=== PATIENT | female | born 1985 | race Caucasian/White ===

== ENCOUNTER → 2019-05-05 | Outpatient (CLI) | payer MEDICARE, MEDICAID ==
[~2019-05-05] MED LIST: AMIT50TA3 PO; ASPI-586 PO; ATEN100T PO; ATEN50TA PO; BACL20TA PO; BSP10T; BSP5T PO; BUSP10TA95 PO; CETI10TA20 PO; CITA40TA19 PO; CLON-378 PO; CLON0.1T PO; CLON0.5T13 PO; CRS350T PO; CTLP20T PO; DOXY100T2 PO; DVL500TEC PO; FURO80TA3 PO; HYDR-229 PO; HYDR-3816 PO; HYDR50TA76 PO; HYDROCODONE; IBP800T PO; IMITREX; LANS30CA PO; LCT30U PO; LISI1TAB10 PO; MILN100T PO; MILN50TA6 PO; NITR-65 PO; OMEP40CA36 PO; ONDA-41 PO; ONDA-43 PO; ORPH100T PO; OXYC10TA7 PO; OXYC15TA79 PO; OXYC20TA63 PO; POTA10TA10 PO; PRAZ2CAP2 PO; PRM25T PO; PROM25SU10 PR; QUET50TA55 PO; RANI150C11 PO; RANI150T11 PO; RT-ALBUINH INH; SULF1TAB7 PO; TRM50T PO
== END ==
LOC: WOUNDCARE 10:16
PROVIDERS: ATTEND Nurse Practitioner
DX: L97.212 Non-pressure chronic ulcer of right calf with fat layer exposed (principal); N18.3 Chronic kidney disease, stage 3 (moderate); G43.909 Migraine, unspecified, not intractable, without status migrainosus; F43.10 Post-traumatic stress disorder, unspecified
CPT/HCPCS: 11042

== ENCOUNTER 2019-05-06 15:45 | Outpatient (CLI) | payer MEDICARE, MEDICAID ==
[~2019-05-06] VITALS: Ht 167.7 cm; Wt 114.1 kg
[~2019-05-06 15:45] MED LIST changes: -ASPI-586 PO; -ATEN100T PO; -BACL20TA PO; -BUSP10TA95 PO; -CETI10TA20 PO; -CLON0.1T PO; -CLON0.5T13 PO; -FURO80TA3 PO; -HYDR-3816 PO; -HYDR50TA76 PO; -OMEP40CA36 PO; -OXYC10TA7 PO; -POTA10TA10 PO; -PRAZ2CAP2 PO; -QUET50TA55 PO; -RANI150T11 PO; -RT-ALBUINH INH
[2019-05-06] MEDS ORDERED: OMEP40CA36 PO (16:22)
[2019-05-06] MEDS ORDERED: RANI150T11 PO (16:22)
[2019-05-06] MEDS ORDERED: AMIT50TA3 PO (16:22)
[2019-05-06] MEDS ORDERED: OXYC10TA7 PO (16:22)
[2019-05-06] MEDS ORDERED: ATEN100T PO (16:22)
[2019-05-06] MEDS ORDERED: BUSP10TA95 PO (16:22)
[2019-05-06] MEDS ORDERED: POTA10TA10 PO (16:22)
[2019-05-06] MEDS ORDERED: QUET50TA55 PO (16:22)
[2019-05-06] MEDS ORDERED: FURO80TA3 PO (16:23)
[2019-05-06] MEDS ORDERED: PRAZ2CAP2 PO (16:23)
[2019-05-06] MEDS ORDERED: RT-ALBUINH INH (16:23)
[2019-05-06] MEDS ORDERED: ASPI-586 PO (16:23)
[2019-05-06] MEDS ORDERED: CLON0.5T13 PO (16:23)
[2019-05-06] MEDS ORDERED: CLON0.1T PO (16:23)
[2019-05-06] MEDS ORDERED: BACL20TA PO (16:23)
[2019-05-06] MEDS ORDERED: CETI10TA20 PO (16:23)
[2019-05-06] MEDS ORDERED: HYDR50TA76 PO (16:23)
[2019-05-07] MEDS ORDERED: HYDR-3816 PO (09:11)
--- NOTE | 2019-05-07 13:56 | OPERATIVE REPORT ---
DATE OF SERVICE: 05/06/2019 ATTENDING SPICE MILLER: ZACH Ornelas PREOPERATIVE DIAGNOSES: Open wound with palpable nodules, right calf with adjacent nodules in between. After full exploration of the lower extremity, she had multiple larger lesions of the thigh as well as throughout the rest of her body. This may indicate some form of systemic disease. POSTOPERATIVE DIAGNOSES: Open wound with palpable nodules, right calf with adjacent nodules in between. After full exploration of the lower extremity, she had multiple larger lesions of the thigh as well as throughout the rest of her body. This may indicate some form of systemic disease. PROCEDURE: Excisional biopsy of right thigh lesion 4 cm in size, excisional biopsy of right medial calf lesion x2, both 2 cm in size. SURGEON: Matt El MD. COSMETIC ACCOUNT COORDINATOR: Kevin Bourgeois APRN. ANESTHESIA: General laryngeal mask airway. ESTIMATED BLOOD LOSS: Minimal. FINDINGS: Open wound with palpable nodules, right calf with adjacent nodules in between. After full exploration of the lower extremity, she had multiple larger lesions of the thigh as well as throughout the rest of her body. This may indicate some form of systemic disease. DISPOSITION: The patient tolerated the procedure well. INDICATIONS: The patient is a 34-year-old female with an extensive past medical history. She was referred over to us for two wounds of the right lateral calf, which she initially noticed 02/2019, which were small and developed an opening in the center. The lesion persisted and then she developed a second open wound few centimeters away from this. In between these lesions, she has two non-subcutaneous palpable nodules as well. This appeared to be some form of infectious process; however, after full examination of the body in the right lower extremity. She had multiple large cystic lesions throughout indicating some form of systemic process, which may include infection versus an autoimmune inflammatory reaction. She has a history of hypertension, peripheral vascular disease, stage III renal failure, lupus as well as CHF and as well as a history of myocardial infarction and cervical cancer. DESCRIPTION OF PROCEDURE: The patient was brought to the operating room, laid supine on the table. After adequate IV pain and sedative medications and general laryngeal mask airway intubation, the right lower extremity was prepped and draped in standard surgical fashion. A 0.5% Marcaine with epinephrine was used to anesthetize the overlying skin to the two lesions of the right medial calf. However, there was a very large nodule among many others identified of the right anterior thigh, which was significantly large approximately 4 cm in size. We first proceeded with an excisional biopsy of the lesion of the right thigh. A transverse skin incision was made using a 15 blade and a cystic type lesion was identified in the subcutaneous fat and this was excised using electrocautery as well as blunt dissection. There was purulence within the cyst capsule. Good hemostasis was observed and the subcutaneous tissue was then reapproximated using 3-0 Vicryl interrupted sutures and the skin was closed using 4-0 nylon interrupted sutures. We then proceeded with excisional biopsies of the two open lesions of the right medial calf using a 15 blade. Good hemostasis was observed and the skin edges were then reapproximated using 4-0 nylon interrupted sutures. Wounds were then cleaned and covered with gauze followed by Kerlix, followed by Coban. The patient tolerated the procedure well. We will await the biopsy results; however, we feel again that this is some form of systemic infection and the contents of the cyst were sent for culture and sensitivity as well as fungal. We will also empirically start her on Diflucan for a suspected lower extremity fungal infection. Job ID: [id number] DocumentID: [id number] Dictated Date: 05/07/2019 10:29:46 Medical Secretary Date: 05/07/2019 13:55:38 Dictated By: MATT EL MD
== END 2019-05-06 16:23 | disposition home or self-care (01) ==
LOC: PREOP 15:45
PROVIDERS: ATTEND Surgery
DX: Z01.818 Encounter for other preprocedural examination (principal)

== ENCOUNTER 2019-06-28 16:55 | Emergency (ER) | payer MEDICARE, MEDICAID ==
[~2019-06-28] VITALS: Ht 167.7 cm; Wt 103.0 kg
[~2019-06-28 16:55] MED LIST changes: +ASPI-586 PO; +ATEN100T PO; +BACL20TA PO; +BUSP10TA95 PO; +CETI10TA20 PO; +CLON0.1T PO; +CLON0.5T13 PO; +FURO80TA3 PO; +HYDR-3816 PO; +HYDR50TA76 PO; +OMEP40CA36 PO; +OXYC10TA7 PO; +POTA10TA10 PO; +PRAZ2CAP2 PO; +QUET50TA55 PO; +RANI150T11 PO; +RT-ALBUINH INH
--- NOTE | 2019-06-28 17:08 | ED Upper Extremity ---
General Chief Complaint: Upper Extremity Stated Complaint: FALL/R WRIST INJ/DENTAL INJ Source: patient Exam Limitations: no limitations History of Present Illness Date Seen by Provider: Jun 28, 2019 Time Seen by Provider: 17:06 Initial Comments To ER with a fall and subsequent right wrist injury and a broken tooth. This occurred last night while cleaning her mother's house. Did not hit her head other than knocking a tooth out on the way down. Complains of pain to the right wrist with statement of "I already have a scaphoid injury". She states that she has taken nothing for pain however K tracks shows that she had a 21 day supply of OxyContin filled on June 18, 10 days ago. However she states "oh I quit taking that on the ". Onset: just prior to arrival Severity: moderate Pain/Injury Location: right wrist Method of Injury: fell Modifying Factors: Worse With Movement Allergies and Home Medications Allergies Coded Allergies: ketorolac (Unverified Allergy, Mild, 07/13/09) naproxen (Unverified Allergy, Mild, 07/13/09) amoxicillin (Verified Allergy, Unknown, 05/06/19) ciprofloxacin (Unverified Allergy, Unknown, 08/16/14) hydrocodone (Verified Allergy, Unknown, Itching, 05/07/19) N/V. morphine (Unverified Allergy, Unknown, 08/16/14) pregabalin (Verified Allergy, Unknown, Anaphylaxis, 05/06/19) tramadol (Unverified Allergy, Unknown, 08/16/14) Uncoded Allergies: BEES (Allergy, Unknown, 08/16/14) Home Medications Albuterol Sulfate 1 Puff Puff, 2 PUFF INH QID PRN for WHEEZING, (Reported) 1 PUFF = 90 MCG Amitriptyline HCl 50 Mg Tablet, 50 MG PO HS, (Reported) Aspirin 81 Mg Tablet.dr, 81 MG PO DAILY, (Reported) Atenolol 100 Mg Tablet, 100 MG PO HS, (Reported) Baclofen 20 Mg Tablet, 20 MG PO TID, (Reported) Buspirone HCl 10 Mg Tablet, 20 MG PO BID PRN for ANXIETY, (Reported) take 2 (10mg) tabs Cetirizine HCl 10 Mg Tablet, 10 MG PO DAILY, (Reported) Clonazepam 0.5 Mg Tablet, 0.5 MG PO BID PRN for ANXIETY, (Reported) Clonidine HCl 0.1 Mg Tablet, 0.1-0.2 MG PO BID PRN for ANXIETY, (Reported) take 1 tab in am take 2 tab in pm if needed Furosemide 80 Mg Tablet, 80 MG PO DAILY, (Reported) Hydrocodone/Acetaminophen 1 Each Tablet, 1-2 TAB PO Q4H Prescribed by: RAFFAELE HERMAN on 05/07/19 0911 Hydroxyzine HCl 50 Mg Tablet, 50 MG PO TID, (Reported) Omeprazole 40 Mg Capsule.dr, 40 MG PO BID, (Reported) Oxycodone HCl 10 Mg Tablet, 10 MG PO TID PRN for PAIN-MODERATE (5-7), (Reported) Potassium Chloride 10 Meq Tablet.er, 10 MEQ PO TID, (Reported) Prazosin HCl 2 Mg Capsule, 2 MG PO HS, (Reported) Quetiapine Fumarate 50 Mg Tablet, 50 MG PO HS, (Reported) Ranitidine HCl 150 Mg Tablet, 150 MG PO BID, (Reported) Patient Home Medication List Home Medication List Reviewed: Yes Review of Systems Constitutional: see HPI EENTM: see HPI Respiratory: no symptoms reported Cardiovascular: no symptoms reported Genitourinary: no symptoms reported Musculoskeletal: no symptoms reported, joint pain Skin: no symptoms reported Psychiatric/Neurological: No Symptoms Reported Past Pjyanzs-Ehqtey-Thgksx Hx Patient Social History Alcohol Use: Denies Use Recreational Drug Use: No Smoking Status: Current Everyday Smoker Type Used: Cigarettes 2nd Hand Smoke Exposure: Yes Recent Foreign Travel: No Contact w/Someone Who Travel: No Recent Hopitalizations: No Physical Abuse: No Sexual Abuse: No Mistreated: No Fear: No Immunizations Up To Date Date of Pneumonia Vaccine: November 04, 2013 Date of Influenza Vaccine: Apr 07, 2014 Seasonal Allergies Seasonal Allergies: Yes Past Medical History Surgeries: Yes (R ANKLE , 5th metatarsal rt foot, L3-S21 lami) Adenoidectomy, Appendectomy, Ear Surgery, Gallbladder, Hysterectomy, Orthopedic, Tonsillectomy Respiratory: Yes (allergy induced asthma) Asthma, COPD Currently Using CPAP: No Currently Using BIPAP: No Cardiac: Yes (tachycardia-SVT, mitral stenosis, MVP) Atrial Fibrillation, Cardiomyopathy, Heart Murmur, Hypertension Neurological: Yes Headaches /Migraines Genitourinary: No Renal Failure Gastrointestinal: Yes Ulcer Musculoskeletal: Yes (DEGENERATIVE JOINT DISEASE, SPINAL STENOSIS) Degenerate Disk Disease, Scoliosis, Chronic Back Pain Endocrine: Yes Lupus HEENT: No Cancer: Yes Cervical, Ovarian Psychosocial: Yes Anxiety, PTSD Integumentary: Yes (R calf wound) Blood Disorders: No Adverse Reaction/Blood Tranf: No Family Medical History No Pertinent Family Hx Physical Exam Vital Signs Vital Signs - First Documented 06/28/19 17:01 Temp 37.0 Pulse 92 Resp 18 B/P (MAP) 145/100 (115) O2 Delivery Room Air Capillary Refill : Height, Weight, BMI Height: 5'6" Weight: 200lbs. oz. 90.988144jc; 40.91 BMI Method:Stated General Appearance: WD/WN, no apparent distress HEENT: PERRL/EOMI, normal ENT inspection Neck: non-tender, full range of motion Respiratory: no respiratory distress, no accessory muscle use Shoulder: normal inspection, non-tender Elbow/Forearm: normal inspection, non-tender Wrist: Yes pain, Yes soft tissue tenderness Hand: normal inspection, non-tender Neurologic/Psychiatric: alert, normal mood/affect, oriented x 3 Skin: normal color, warm/dry, other (multiple sores on the skin of bilateral lower extremities) Progress/Results/Core Measures Results/Orders My Orders Orders - HUMBERTO MARQUIS APRN Wrist, Right, 3 Views Or More (06/28/19 17:06) Cervical Spine 3 Views Or Less (06/28/19 17:06) Ct Extremity Upper Right Wo (06/28/19 17:38) Vital Signs/I&O 06/28/19 17:01 Temp 37.0 Pulse 92 Resp 18 B/P (MAP) 145/100 (115) O2 Delivery Room Air Diagnostic Imaging Diagonstic Imaging: Xray, CT Comments NAME: ROLAN DYKES [facility] REC#: [id number] PT STATUS: REG ER : 1985 PHYSICIAN: HUMBERTO MARQUIS APRN ADMIT DATE: 06/28/19/ER Draft Date of Exam:06/28/19 WRIST, RIGHT, 3 VIEWS OR MORE INDICATION: Status post fall with pain. Patient does report history of previous scaphoid fracture and osteonecrosis. TECHNIQUE: Three views of the right wrist. CORRELATION STUDY: 06/25/2011. FINDINGS: There is abnormal appearance about the scaphoid bone which has not changed from prior study. There is marked deformity with some fragmentation of the majority of the bone. The proximal pole has a slightly preserved appearance. There is resultant narrowing at the radiocarpal row along its lateral aspect with some bone fragmentation and osteophyte formation. The remainder of the wrist otherwise appears to be generally intact. Definitive acute fracture is not visualized but easily go undetected owing to the chronic changes. There does appear to be some soft tissue edema along the dorsal aspect. IMPRESSION: 1. Findings consistent with the provided history of a previous scaphoid fracture and osteonecrosis. There is rather significant distortion at the level of the scaphoid bone, likely largely chronic. 2. Definitive superimposed acute abnormality is not demonstrated but could easily go undetected. If symptoms persist, consideration for CT imaging may be of additional benefit. Dictated on workstation # [id number] Dict: 06/28/19 1724 Trans: 06/28/19 1733 [id number] Interpreted by: JAYLEN MORRIS DO Electronically signed by: NAME: ROLAN DYKES [facility] REC#: [id number] PT STATUS: REG ER : 1985 PHYSICIAN: HUMBERTO MARQUIS APRN ADMIT DATE: 06/28/19/ER Draft Date of Exam:06/28/19 CT EXTREMITY UPPER RIGHT WO PROCEDURE: CT right upper extremity without contrast. TECHNIQUE: Multiple contiguous axial images were obtained through the right upper extremity without the use of intravenous contrast. Sagittal and coronal reformations were then performed. Auto Exposure Controls were utilized during the CT exam to meet ALARA standards for radiation dose reduction. INDICATION: One day post fall. Pain all over the wrist area. Cannot move fingers. History of previous scaphoid injury and osteonecrosis. CORRELATION STUDY: Radiographs 06/28/2019. FINDINGS: Apparent chronic, ununited mid scaphoid fracture is present. There is diffuse volume loss and increased density about the proximal pole compatible with osteonecrosis. Slight distorted and cystic change about the distal pole is also present. There is also small bone fragmentation along the dorsal aspect of the proximal lunate. This area of distortion is also likely chronic. There is a faint, somewhat Y-shaped lucency through the distal aspect of the capitate. Suspect for a nondisplaced fracture. The alignment is anatomic. Remaining osseous structures appear to be intact. IMPRESSION: 1. Findings compatible with a chronic, ununited mid scaphoid fracture with significant fragmentation of the scaphoid bone and more focal osteonecrotic changes about the proximal pole. 2. Likely more chronic, nonacute fracture at the adjacent dorsal lunate. 3. Subtle Y-shaped lucency through the distal capitate. Findings suspect for a potential nondisplaced acute fracture. This finding is fairly faint. Dictated on workstation # [id number] Dict: 06/28/19 1756 Trans: 06/28/19 1805 [id number] Interpreted by: JAYLEN MORRIS DO Electronically signed by: Departure Impression Primary Impression: Scaphoid fracture Qualified Codes: S62.001A - Unspecified fracture of navicular [scaphoid] bone of right wrist, initial encounter for closed fracture Disposition: HOME, SELF-CARE Condition: Improved Departure-Patient Inst. Decision time for Depature: 17:25 [place]: [facility] [place] Primary Care Physician SHA BONNER (Family) Primary Care Physician INOCENCIA MENDOZA TERRY D MD ZAFUTA, MICHAEL P MD Patient Instructions: Wrist Fracture (DC) Add. Discharge Instructions: 1. Return to ER for any concerns 2. Follow-up with orthopedic surgeon. Call tomorrow to make an appointment. Any additional opiates will need to be written by primary care or orthopedics, not the emergency room. All discharge instructions reviewed with patient and/or family. Voiced understanding. HUMBERTO MARQUIS APRN Jun 28, 2019 17:08
--- NOTE | 2019-06-28 17:31 | Diagnostic Imaging Report ---
INDICATION: One day post fall, neck pain. TECHNIQUE: AP, lateral, and odontoid views cervical spine. CORRELATION STUDY: None. FINDINGS: There is some straightening of the normal cervical lordosis. Alignment is otherwise anatomic. Vertebral body heights are maintained. The disc spaces appear preserved. Odontoid is intact with lateral masses of C1 and C2 aligned. Asymmetric areas of hypertrophic facet arthropathy, greatest on the left. Prevertebral soft tissues are unremarkable. IMPRESSION: 1. Straightening of the normal cervical lordosis could be owing to splinting, spasm, and/or simply patient positioning. Negative for acute bony abnormality. Dictated by: Dictated on workstation # [id number]
--- NOTE | 2019-06-28 17:34 | Diagnostic Imaging Report ---
INDICATION: Status post fall with pain. Patient does report history of previous scaphoid fracture and osteonecrosis. TECHNIQUE: Three views of the right wrist. CORRELATION STUDY: 06/25/2011. FINDINGS: There is abnormal appearance about the scaphoid bone which has not changed from prior study. There is marked deformity with some fragmentation of the majority of the bone. The proximal pole has a slightly more distorted appearance. There is resultant narrowing at the radiocarpal row along its lateral aspect with some bone fragmentation and osteophyte formation. The remainder of the wrist otherwise appears to be generally intact. Definitive acute fracture is not visualized but easily go undetected owing to the chronic changes. There does appear to be some soft tissue edema along the dorsal aspect. IMPRESSION: 1. Findings consistent with the provided history of a previous scaphoid fracture and osteonecrosis. There is rather significant distortion at the level of the scaphoid bone, likely largely chronic. 2. Definitive superimposed acute abnormality is not demonstrated but could easily go undetected. If symptoms persist, consideration for CT imaging may be of additional benefit. Dictated by: Dictated on workstation # [id number]
--- NOTE | 2019-06-28 18:07 | Diagnostic Imaging Report ---
PROCEDURE: CT right upper extremity without contrast. TECHNIQUE: Multiple contiguous axial images were obtained through the right upper extremity without the use of intravenous contrast. Sagittal and coronal reformations were then performed. Auto Exposure Controls were utilized during the CT exam to meet ALARA standards for radiation dose reduction. INDICATION: One day post fall. Pain all over the wrist area. Cannot move fingers. History of previous scaphoid injury and osteonecrosis. CORRELATION STUDY: Radiographs 06/28/2019. FINDINGS: Apparent chronic, ununited mid scaphoid fracture is present. There is diffuse volume loss and increased density about the proximal pole compatible with osteonecrosis. Slight distorted and cystic change about the distal pole is also present. There is also small bone fragmentation along the dorsal aspect of the proximal lunate. This area of distortion is also likely chronic. There is a faint, somewhat Y-shaped lucency through the distal aspect of the capitate. Suspect for a nondisplaced fracture. The alignment is anatomic. Remaining osseous structures appear to be intact. IMPRESSION: 1. Findings compatible with a chronic, ununited mid scaphoid fracture with significant fragmentation of the scaphoid bone and more focal osteonecrotic changes about the proximal pole. 2. Likely more chronic, nonacute fracture at the adjacent dorsal lunate. 3. Subtle Y-shaped lucency through the distal capitate. Findings suspect for a potential nondisplaced acute fracture. This finding is fairly faint. Dictated by: Dictated on workstation # [id number]
[2019-06-28] MEDS ORDERED: RX-OXYCODONE/APAP 5-325 MG #4 TAB PK PO PRN (18:15)
[2019-06-28 18:22] VITALS: BP 143/84
== END 2019-06-28 18:22 | disposition home or self-care (01) ==
LOC: EDUNIT# 16:55 → ER 16:56
DX: S62.001A Unspecified fracture of navicular [scaphoid] bone of right wrist, initial encounter for closed fracture (principal); J44.9 Chronic obstructive pulmonary disease, unspecified; I10 Essential (primary) hypertension; F41.9 Anxiety disorder, unspecified; F43.10 Post-traumatic stress disorder, unspecified; I48.91 Unspecified atrial fibrillation; G43.909 Migraine, unspecified, not intractable, without status migrainosus; F17.210 Nicotine dependence, cigarettes, uncomplicated; Z85.41 Personal history of malignant neoplasm of cervix uteri; Z85.43 Personal history of malignant neoplasm of ovary; Z90.49 Acquired absence of other specified parts of digestive tract; Z87.39 Personal history of other diseases of the musculoskeletal system and connective tissue; Z90.89 Acquired absence of other organs; Z90.710 Acquired absence of both cervix and uterus; Z88.6 Allergy status to analgesic agent; Z88.1 Allergy status to other antibiotic agents; Z88.5 Allergy status to narcotic agent; Z88.8 Allergy status to other drugs, medicaments and biological substances; Z79.82 Long term (current) use of aspirin
CPT/HCPCS: 72040; 73110; 73200

== ENCOUNTER 2019-07-17 19:17 | Emergency (ER) | payer MEDICARE, MEDICAID ==
[~2019-07-17] VITALS: Ht 170 cm; Wt 81.0 kg
[~2019-07-17 19:17] MED LIST changes: -CLON0.5T13 PO; +CLON0.5T4 PO; +OMEP40CA27 PO; -OMEP40CA36 PO
--- NOTE | 2019-07-17 19:53 | ED EENT ---
History of Present Illness General Stated Complaint: MOUTH PAIN Source: patient Exam Limitations: no limitations History of Present Illness Date Seen by Provider: Jul 17, 2019 Time Seen by Provider: 19:51 Initial Comments To ER with painful teeth. This is a right upper canine, she is already on ampicillin and has OxyContin at home. Timing/Duration: gradual Severity: moderate Location: dental Associated Symptoms: denies symptoms Allergies and Home Medications Allergies Coded Allergies: ketorolac (Unverified Allergy, Mild, 07/13/09) naproxen (Unverified Allergy, Mild, 07/13/09) amoxicillin (Verified Allergy, Unknown, 05/06/19) ciprofloxacin (Unverified Allergy, Unknown, 08/16/14) hydrocodone (Verified Allergy, Unknown, Itching, 05/07/19) N/V. morphine (Unverified Allergy, Unknown, 08/16/14) pregabalin (Verified Allergy, Unknown, Anaphylaxis, 05/06/19) tramadol (Unverified Allergy, Unknown, 08/16/14) Uncoded Allergies: BEES (Allergy, Unknown, 08/16/14) Home Medications Albuterol Sulfate 1 Puff Puff, 2 PUFF INH QID PRN for WHEEZING, (Reported) 1 PUFF = 90 MCG Amitriptyline HCl 50 Mg Tablet, 50 MG PO HS, (Reported) Aspirin 81 Mg Tablet.dr, 81 MG PO DAILY, (Reported) Atenolol 100 Mg Tablet, 100 MG PO HS, (Reported) Baclofen 20 Mg Tablet, 20 MG PO TID, (Reported) Buspirone HCl 10 Mg Tablet, 20 MG PO BID PRN for ANXIETY, (Reported) take 2 (10mg) tabs Cetirizine HCl 10 Mg Tablet, 10 MG PO DAILY, (Reported) Clonazepam 0.5 Mg Tablet, 0.5 MG PO BID PRN for ANXIETY, (Reported) Clonidine HCl 0.1 Mg Tablet, 0.1-0.2 MG PO BID PRN for ANXIETY, (Reported) take 1 tab in am take 2 tab in pm if needed Furosemide 80 Mg Tablet, 80 MG PO DAILY, (Reported) Hydrocodone/Acetaminophen 1 Each Tablet, 1-2 TAB PO Q4H Prescribed by: RAFFAELE HERMAN on 05/07/19 0911 Hydroxyzine HCl 50 Mg Tablet, 50 MG PO TID, (Reported) Omeprazole 40 Mg Capsule.dr, 40 MG PO BID, (Reported) Oxycodone HCl 10 Mg Tablet, 10 MG PO TID PRN for PAIN-MODERATE (5-7), (Reported) Potassium Chloride 10 Meq Tablet.er, 10 MEQ PO TID, (Reported) Prazosin HCl 2 Mg Capsule, 2 MG PO HS, (Reported) Quetiapine Fumarate 50 Mg Tablet, 50 MG PO HS, (Reported) Ranitidine HCl 150 Mg Tablet, 150 MG PO BID, (Reported) Patient Home Medication List Home Medication List Reviewed: Yes Review of Systems Review of Systems Constitutional: see HPI Eyes: No Symptoms Reported Ears: No Symptoms Reported Nose: no symptoms reported Mouth: see HPI Throat: no symptoms reported Respiratory: no symptoms reported Cardiovascular: no symptoms reported Musculoskeletal: no symptoms reported Skin: no symptoms reported Neurological: No Symptoms Reported Hematologic/Lymphatic: No Symptoms Reported Immunological/Allergic: no symptoms reported Past Gnypqbg-Ovojhe-Qhzkfc Hx Patient Social History Type Used: Cigarettes 2nd Hand Smoke Exposure: Yes Recent Foreign Travel: No Contact w/Someone Who Travel: No Recent Hopitalizations: No Immunizations Up To Date Date of Pneumonia Vaccine: November 04, 2013 Date of Influenza Vaccine: Apr 07, 2014 Seasonal Allergies Seasonal Allergies: Yes Past Medical History Surgeries: Yes (R ANKLE , 5th metatarsal rt foot, L3-S21 lami) Adenoidectomy, Appendectomy, Ear Surgery, Gallbladder, Hysterectomy, Orthopedic, Tonsillectomy Respiratory: Yes (allergy induced asthma) Asthma, COPD Currently Using CPAP: No Currently Using BIPAP: No Cardiac: Yes (tachycardia-SVT, mitral stenosis, MVP) Atrial Fibrillation, Cardiomyopathy, Heart Murmur, Hypertension Neurological: Yes Headaches /Migraines Genitourinary: No Renal Failure Gastrointestinal: Yes Ulcer Musculoskeletal: Yes (DEGENERATIVE JOINT DISEASE, SPINAL STENOSIS) Degenerate Disk Disease, Scoliosis, Chronic Back Pain Endocrine: Yes Lupus HEENT: No Cancer: Yes Cervical, Ovarian Psychosocial: Yes Anxiety, PTSD Integumentary: Yes (R calf wound) Blood Disorders: No Adverse Reaction/Blood Tranf: No Family Medical History No Pertinent Family Hx Physical Exam Height, Weight, BMI Height: 5'6" Weight: 200lbs. oz. 90.856115vx; 36.00 BMI Method:Stated General Appearance: WD/WN, no apparent distress Eyes: bilateral eye normal inspection, bilateral eye PERRL, bilateral eye EOMI Ears: bilateral ear auricle normal, bilateral ear canal normal, bilateral ear TM normal Mouth/Throat: No mandibular swelling, No maxillary swelling; other (multiple carious and eroded teeth) Neck: non-tender, full range of motion Respiratory: no respiratory distress, no accessory muscle use Gastrointestinal: non tender, soft Neurologic/Psychiatric: alert, normal mood/affect, oriented x 3 Skin: normal color, warm/dry Departure Communication (Admissions) Supraperiosteal nerve block done using lidocaine with epinephrine 1% totaling 1.5 mL with adequate pain control achieved. Impression Primary Impression: Pain, dental Additional Impression: Pain due to dental caries Disposition: HOME, SELF-CARE Condition: Improved Departure-Patient Inst. Decision time for Depature: 19:52 Referrals: [facility] [place] ([place]) Primary Care Physician SHA BONNER (Family) Primary Care Physician Patient Instructions: Dental Pain Add. Discharge Instructions: 1. Return to ER for any concerns. Continue antibiotics. Follow-up with your dentist as soon as possible. HUMBERTO MARQUIS PETROLEUM REFINERY OPERATOR Jul 17, 2019 19:53
[2019-07-17 20:04] VITALS: BP 132/75
== END 2019-07-17 20:04 | disposition home or self-care (01) ==
LOC: EDUNIT# 19:17 → ER 19:18
DX: K02.9 Dental caries, unspecified (principal); I10 Essential (primary) hypertension; J44.9 Chronic obstructive pulmonary disease, unspecified; I48.91 Unspecified atrial fibrillation; G43.909 Migraine, unspecified, not intractable, without status migrainosus; F43.9 Reaction to severe stress, unspecified; F41.9 Anxiety disorder, unspecified; Z85.41 Personal history of malignant neoplasm of cervix uteri; Z85.43 Personal history of malignant neoplasm of ovary; Z88.6 Allergy status to analgesic agent; Z88.1 Allergy status to other antibiotic agents; Z88.5 Allergy status to narcotic agent; Z87.39 Personal history of other diseases of the musculoskeletal system and connective tissue; Z88.8 Allergy status to other drugs, medicaments and biological substances; Z79.82 Long term (current) use of aspirin; Z77.22 Contact with and (suspected) exposure to environmental tobacco smoke (acute) (chronic); Z90.89 Acquired absence of other organs; Z90.49 Acquired absence of other specified parts of digestive tract; Z90.710 Acquired absence of both cervix and uterus
CPT/HCPCS: 64400

== ENCOUNTER → 2019-07-26 | Emergency (ER) | payer MEDICARE, MEDICAID ==
[~2019-07-26] VITALS: Ht 167.7 cm; Wt 120.3 kg
[~2019-07-26] MED LIST changes: +AMPI500C9 PO; -CETI10TA20 PO; +CETI10TA21 PO; +LEVO750T9 PO; +METH-313 PO; +METH4TAB PO; +MUPI22OI2; +TRAM50TA3
[2019-07-26 13:34] VITALS: BP 127/79
--- OUTSIDE RECORDS SUMMARY | 2019-08-01 01:40 | XMS REPORT | Clinical Summary ---
Author Author Admin, Amparo SY Organization [employer] Address Unknown Phone Unavailable Allergies, Adverse Reactions, Alerts Allergy Name Reaction Description Start Date Severity Status Pr ovider AMOXICILLIN Critical Active Eduardo brown MD KETOROLAC TROMETHAMINE anaphylaxis Critical Active R chuyita Hoskins MD DEMEROL anaphylaxis Critical Active Eduardo brown MD MORPHINE SULFATE (CONCENTRATE) anaphylaxis Critical Acti ve Eduardo Hoskins MD Conditions or Problems Problem Name Problem Code Onset Date Status Entry Date Provider Comment Standard Description Annotate Influenza Vaccination for Prophylaxis V04.81 Inactive Luz Maria Nagel MA Need for prophylactic vaccin ation and inoculation against influenza BMI 40-44.9 Refinement Luz Maria Nagel MA Body Mass Index 40.0- 44.9, adult BMI 39-39.9 Refinement Eduardo Hoskins MD Body Mass Index 40.0- 44.9, adult BMI 38-38.9 Active Eduardo Hoskins MD Body Mass Index 40.0- 44.9, adult Obesity Class III (BMI >=40) Refinement Luz Maria Nagel MA Morbid obesity Obesity Class II (BMI 35-39.9) Active Eduardo Hoskins MD Morbid obesity Spinal stenosis of cervical region 723.0 Active 2 Eduardo Hoskins MD Spinal stenosis of cervical region Hypertension, essential 401.9 Active Eduardo phillip MD Unspecified essential hypertension Chronic kidney disease, Stage III (moderate) 585.3 Ac tive Eduardo Hoskins MD Chronic kidney disease, Stage III (moder ate) Chronic pain - on daily narcotics 338.29 Active 20 12/07/03 Eduardo Hoskins MD Other chronic pain Congestive heart failure Active Eduardo Hoskins MD Lupus 710.0 Inactive Eduardo Hoskins MD Systemic lupus erythematosus Systemic lupus erythematosus 710.0 Active Eduardo Hoskins MD Systemic lupus erythematosus Paroxysmal atrial fibrillation 427.31 Active 06/27 Eduardo Hoskins MD Atrial fibrillation Wellness exam V70.0 Active Eduardo Hoskins MD Routine general medical examination at a health care facility Tobacco Use: Current Smoker-Nicotine dependence, unspecified , uncomplicated Active Eduardo Hoskins MD Tobacco use disor veena Abdominal pain, right lower quadrant 789.03 Active Eduardo Hoskins MD Abdominal pain, right lower quadrant Low back pain 724.2 Active Eduardo Hoskins MD Lumbago Opioid dependence 304.00 Active Eduardo Hoskins MD Opioid type dependence, unspecified use Muscle spasm 728.85 Active Eduardo Hoskins MD Spasm of muscle Other convulsions 780.39 Active Eduardo Hoskins MD Other convulsions Influenza Vaccination for Prophylaxis V04.81 Inactive Eduardo Hoskins MD Need for prophylactic vaccin ation and inoculation against influenza Foot pain, right 729.5 Active Urszula Osei PRN-C Pain in limb Influenza Vaccination for Prophylaxis V04.81 Inactive Eduardo Hoskins MD Need for prophylactic vaccin ation and inoculation against influenza Influenza Vaccination for Prophylaxis ICD-V04.81 5 Inactive Neyda Cabrera MA Influenza Vaccination for Prophylaxis ICD-V04.81 1 Inactive Magaly Asencio MA Influenza Vaccination for Prophylaxis ICD-V04.81 1 Inactive Eduardo Hoskins MD Medication List Medication Instructions Start Date Stop Date Generic Name NDC Status Provider Patient Instruction SUMATRIPTAN SUCC 50 MG TABLET TAKE ONE TABLET BY MOUTH EVERY 2 HOURS NEEDED HEADACHES, MAY REPEAT IN 2 HOURS. *MAX DOSE 200MG IN 24 HOURS*. SUMATRIPTAN SUCCINATE 77396707605 Active BERYL Donaldson Active QUETIAPINE FUMARATE 50 MG TAB TAKE ONE (1) TABLET DAILY AT BEDTI ME. QUETIAPINE FUMARATE 11669147774 Active BERYL Donaldson Active OXYCODONE HCL 10 MG ORAL TABLET Taper off as directed over t he next 3 weeks. OXYCODONE HCL 41567517063 Active Eduardo Hoskins MD Active SAVELLA TITRATION PACK 12.5 & 25 & 50 MG ORAL Take as directed 2 MILNACIPRAN HCL 00641591693 No Longer Active Eduardo Hoskins MD Active NICOTINE 21 MG/24HR TRANSDERMAL PATCH 24 HOUR 1 patch for 24hrs change everyday. NICOTINE 44214075414 No Longer Active Eduardo Hoskins MD Active ONDANSETRON ODT 4 MG TABLET DISSOLVE 1 TABLET IN MOUTH EVERY 8 HOURS NEEDED FOR NAUSEA... ONDANSETRON 32730751400 Active BERYL Donaldson Active PRAZOSIN 2 MG CAPSULE TAKE 1 CAPSULE BY MOUTH DAILY AT BEDTIME... 2 PRAZOSIN HCL 32501863737 Active BERYL Donaldson Active POTASSIUM CL ER 10 MEQ TABL TAKE ONE (1) TABLET BY ALBA THREE (3) TIMES A DAY... POTASSIUM CHLORIDE 99935054022 Active BERYL Donaldson Active HYDROXYZINE HCL 50 MG TABLET TAKE ONE (1) TABLET BY MO [facility] THREE (3) TIMES A DAY... HYDROXYZINE HCL 08042828302 Active BLAIRE Donaldson Active FUROSEMIDE 80 MG TABLET TAKE ONE (1) TABLET BY MOUTH DAILY... 03/13 FUROSEMIDE 14841378138 Active BERYL Donaldson Active ATENOLOL 100 MG TABLET TAKE ONE (1) TABLET DAILY AT BEDTIME. 03/13 ATENOLOL 89369069564 Active BERYL Donaldson Active AMITRIPTYLINE HCL 50 MG TAB TAKE TWO (2) TABLETS ONCE DAILY AT BEDTIME. AMITRIPTYLINE HCL 79470918335 Active BERYL Donaldson Active SAVELLA 50 MG ORAL TABLET 1 twice a day MILNACI PRAN HCL 46334322402 Active Eduardo Hoskins MD Active NICODERM CQ 14 MG/24HR TRANSDERMAL PATCH 24 HOUR Apply 1 daily and then decrease to 7mg patch NICOTINE 58180880895 No [place] Active Eduardo Hoskins MD Active NICODERM CQ 7 MG/24HR TRANSDERMAL PATCH 24 HOUR Apply 1 daily after the 14 patch. NICOTINE 67355479621 No Longer Active Eduardo Hoskins MD Active BACLOFEN 20 MG ORAL TABLET Three times daily BA CLOFEN 19685926106 No Longer Active Eduardo Hoskins MD Active DURAGESIC-50 50 MCG/HR TRANSDERMAL PATCH 72 HOUR Apply every 72 hours FENTANYL 62857694260 No Longer Active Eduardo Hoskins MD Active PROVENTIL HFA 108 (90 BASE) MCG/ACT INHALATION AEROSOL SOLUTION 2 puffs four times a day as needed for cough or wheezing ALBU TEROL SULFATE 26344362404 Active Eduardo Hoskins MD Active BUSPIRONE HCL 10 MG ORAL TABLET 2 twice a day for anxiety 1 BUSPIRONE HCL 75586011420 Active Eduardo Hoskins MD Active CLONIDINE HCL 0.1 MG ORAL TABLET 2 at bedtime nightly and 1 in am if needed CLONIDINE HCL 62915797062 Active Eduardo Hoskins MD Active NARCAN 4 MG/0.1ML LIQD 1 spray in one nostril. May repeat dose every 2 to 3 minutes until patient is responsive or EMS arrives NALOXONE HCL 67045499005 Active Eduardo Hoskins MD Active OMEPRAZOLE 40 MG ORAL CAPSULE DELAYED RELEASE Twice a day OMEPRAZOLE 61236391656 Active BERYL Donaldson Active ZANTAC 150 MAXIMUM STRENGTH 150 MG ORAL TABLET Twice daily RANITIDINE HCL 71909665778 Active Eduardo Hoskins MD Active PROMETHAZINE HCL 25 MG ORAL TABLET 1 every 6 hours as needed 06/27 PROMETHAZINE HCL 30833874037 Active BERYL Donaldson Activ e ASPIRIN 325 MG ORAL TABLET four times a day ASPIR IN 80282944413 Active Luz Maria Nagel MA Active CLONAZEPAM 1 MG ORAL TABLET 2 at bedtime and as needed CLONAZEPAM 64038823251 No Longer Active Luz Maria Nagel MA Active IPRATROPIUM-ALBUTEROL 0.5-2.5 (3) MG/3ML INHALATION SOLUTION As Needed IPRATROPIUM-ALBUTEROL 54745198267 Active Luz Maria Nagel MA Active ATROVENT HFA AEROSOL SOLUTION As needed IPRATROPIUM BROMIDE HFA AERS 71614023637 Active Luz Maria Nagel MA Active ALBUTEROL SULFATE (2.5 MG/3ML) 0.083% INHALATION NEBUL IZATION SOLUTION As needed ALBUTEROL SULFATE 84864075863 Active Luz Maria Nagel MA Active DURAGESIC-50 50 MCG/HR TRANSDERMAL PATCH 72 HOUR Apply every 72 hours DURAGESIC-50 50 MCG/HR TRANSDERMAL PATCH 72 HOUR 19336 5 FENTANYL Inactive BACLOFEN 20 MG ORAL TABLET Three times daily 0 BACLOFEN 20 MG ORAL TABLET 19730223 BACLOFEN Inactive NICODERM CQ 7 MG/24HR TRANSDERMAL PATCH 24 HOUR Apply 1 daily after the 14 patch. NICODERM CQ 7 MG/24HR TRANSDERMA L PATCH 24 HOUR 19790823 NICOTINE Inactive NICODERM CQ 14 MG/24HR TRANSDERMAL PATCH 24 HOUR Apply 1 daily and then decrease to 7mg patch NICODERM CQ 14 MG/ 24HR TRANSDERMAL PATCH 24 HOUR 19790802 NICOTINE Inactive NICOTINE 21 MG/24HR TRANSDERMAL PATCH 24 HOUR 1 patch for 24hrs change everyday. NICOTINE 21 MG/24HR TRANSDERMAL PATCH 24 HOUR NICOTINE Inactive SAVELLA TITRATION PACK 12.5 & 25 & 50 MG ORAL Take as directed 2 SAVELLA TITRATION PACK 12.5 & 25 & 50 MG ORAL RI LNACIPRAN HCL Inactive Advance Directives Directive Description Start Date HEALTH CARE PROXY Vital Signs Date Name Value Unit Range Description blood pressure, diastolic, repeated by physician 106 BP griffin blood pressure, diastolic 106 mm[Hg] BP griffin blood pressure, systolic, repeated by physician 152 BP sys blood pressure, systolic 152 mm[Hg] BP sys height E&M 67 [in_us] Bdy height pulse rate E&M 86 /min Heart rate temperature E&M 97.6 [degF] Body temp erature weight E&M 248 [lb_av] Weight Measure d blood pressure, diastolic, repeated by physician 86 BP griffin blood pressure, diastolic 86 mm[Hg] BP griffin blood pressure, systolic, repeated by physician 126 BP sys blood pressure, systolic 126 mm[Hg] BP sys height E&M 67 [in_us] Bdy height pulse rate E&M 82 /min Heart rate temperature E&M 97.9 [degF] Body temp erature weight E&M 251.50 [lb_av] Weight Measure d blood pressure, diastolic, second observation 90 m m[Hg] BP griffin blood pressure, diastolic, third observation 72 mm [Hg] BP griffin blood pressure, diastolic, repeated by physician 90 BP griffin blood pressure, diastolic 96 mm[Hg] BP griffin blood pressure, systolic, second observation 150 mm [Hg] BP sys blood pressure, systolic, third observation 137 mm[ Hg] BP sys blood pressure, systolic, repeated by physician 150 BP sys blood pressure, systolic 155 mm[Hg] BP sys height E&M 67 [in_us] Bdy height pulse rate E&M 112 /min Heart rate temperature E&M 98.5 [degF] Body temp erature weight E&M 258 [lb_av] Weight Measure d blood pressure, diastolic, second observation 93 m m[Hg] BP griffin blood pressure, diastolic, repeated by physician 93 BP griffin blood pressure, diastolic 92 mm[Hg] BP griffin blood pressure, systolic, second observation 146 mm [Hg] BP sys blood pressure, systolic, repeated by physician 146 BP sys blood pressure, systolic 157 mm[Hg] BP sys height E&M 67 [in_us] Bdy height pulse rate E&M 98 /min Heart rate temperature E&M 99.3 [degF] Body temp erature weight E&M 264 [lb_av] Weight Measure d blood pressure, diastolic, repeated by physician 77 BP griffin blood pressure, diastolic 77 mm[Hg] BP griffin blood pressure, systolic, repeated by physician 127 BP sys blood pressure, systolic 127 mm[Hg] BP sys height E&M 67 [in_us] Bdy height pulse rate E&M 65 /min Heart rate temperature E&M 98.5 [degF] Body temp erature weight E&M 280 [lb_av] Weight Measure d blood pressure, diastolic, second observation 72 m m[Hg] BP griffin blood pressure, diastolic, repeated by physician 72 BP griffin blood pressure, diastolic 82 mm[Hg] BP griffin blood pressure, systolic, second observation 116 mm [Hg] BP sys blood pressure, systolic, repeated by physician 116 BP sys blood pressure, systolic 143 mm[Hg] BP sys height E&M 67 [in_us] Bdy height pulse rate E&M 74 /min Heart rate temperature E&M 98.3 [degF] Body temp erature weight E&M 283.50 [lb_av] Weight Measure d Diagnostic Results Date Name Value Unit Range Description Lab Report: CBC - Hematology leukocyte count, blood 13.5 10^3/MM^3 10*3/mm3 4.6-10.2 erythrocyte (RBC) count 5.69 10^6/MM^3 10*6/mm3 3.80-5.8 0 hemoglobin, blood 14.7 g/dL 12.0-16.0 hematocrit, blood 47.2 % 37.0-47.0 mean corpuscular volume, RBC 83 fL 80-97 mean corpuscular hemoglobin, RBC 25.9 pg 27. 0-31.2 mean corpuscular hemoglobin concentration, RBC 31.2 G/DL % 31.8-35.4 red blood cell distribution width 14.5 % 11 .6-14.8 platelet count 430 10^3/MM^3 10*3/mm3 142-424 Lab Report: Comp. Metabolic Panel, Magne sium, Thyroid Stimulating Hormon ... - Chemistry sodium, serum 139 mmol/L 239-193 9982/02/18 carbon dioxide, venous blood 29.0 mmol/L 21.0-32 .0 potassium, serum 4.5 mmol/L 3.5-5.2 chloride, serum 100 mmol/L 98-107 blood glucose 81 mg/dL 65-95 urea nitrogen, blood 22 mg/dL 7-18 creatinine, serum 0.96 mg/dL 0.60-1.30 Estimated Glomerular Filtration Rate (calc) 71 (?) mL/min/1.73m2 = OR > 60 mL/min alanine aminotransferase (SGPT), serum 32 U/L 12-78 aspartate aminotransferase (SGOT), serum 31 U/L 15-37 calcium, serum 8.9 mg/dL 8.5-10.1 bilirubin, serum, total 0.40 mg/dL 0.00-1.00 TSH 1.64 m[iU]/mL 0.36-3.74 Lab Report: Comp. Metabolic Panel, [place] sium, Thyroid Stimulating Hormon ... - Lab Alkaline phosphatase 151 50-136 Encounters Code Encounter Date Provider Facility CPT-[id number] Vst-Est Level IV 10:32:04 NATURAL SCIENCES PROFESSOR Jaleel Hoskins MD [facility]-45784 [id number] Vst-Est Level IV 12:32:50 NATURAL SCIENCES PROFESSOR Jaleel Hoskins MD [facility]-96782 [id number]-Qvc Vst-Est Level IV 17:12:13 C [facility] [id number]-Kxp Vst-Est Level IV 15:03:07 CDT Jaleel Hoskins MD [facility]-51606 [id number]-Ubw Vst-Est Level IV 15:42:59 CDT Jaleel Hoskins MD [facility]-55060 [id number] Vst-Est Level IV 16:40:01 NATURAL SCIENCES PROFESSOR Jaleel Hoskins MD [facility]-77127 89030-Zhc Vst-Est Level IV 16:53:46 NATURAL SCIENCES PROFESSOR Jaleel Hoskins MD [facility]-17911 [id number] Vst-New Level III 14:31:53 NATURAL SCIENCES PROFESSOR Eduardo Hoskins MD [facility] Procedures Code Procedure Name Date Entry Date Standard Desc ription CPT-[id number] (4274F 2P) Patient Reason Influenza immu nization not administered 10:32:04 NATURAL SCIENCES PROFESSOR CPT-G0438 Initial Annual Wellness Exam 16:27:26 CS T
--- OUTSIDE RECORDS SUMMARY | 2019-08-01 01:40 | XMS REPORT | Clinical Summary ---
Author Author [facility] Organization [facility] Address Unknown Phone Unavailable Care Team Providers Care Rfid Engineer Name Role Phone No Pcp, Na PCP Unavailable Source Comments Some departments are not documenting in the electronic medical record. If you d o not see the information that you expected, contact Release of Information in [facility] [employer] Information Management department at [phone] for further assistan ce in locating additional records.[facility] Allergies Not on File Medications Not on file Active Problems Not on file Social History Date Tobacco Use Types Packs/Day Years Used Never Assessed Sex Assigned at Date Recorded Not on file Industry Job Start Date Occupation Not on file Not on file Not on file Travel End Travel History Travel Start No recent travel history available. 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
--- OUTSIDE RECORDS SUMMARY | 2019-08-01 01:49 | XMS REPORT | Continuity of Care Document ---
Author Organization Unknown Address Unknown Phone Unavailable Allergies Active Description Code Type Severity Reaction Onset Reported/Identified Relationship to Patient Clinical Status Yes ketorolac [id number] Drug Allergy Mild N/A 07/13/2009 Yes naproxen [id number] Drug Allergy Mild N/A 07/13/2009 Yes BEES BEES Unknown N/A 08/16/2014 Yes ciprofloxacin [id number] Elvin g Allergy Unknown N/A 08/16/2014 Yes morphine [id number] Drug Allergy Unknown N/A 08/16/2014 Yes tramadol [id number] Drug Allergy Unknown N/A 08/16/2014 Yes amoxicillin [id number] Drug Aller gy Unknown N/A 05/06/2019 Yes pregabalin [id number] Drug Allerg y Unknown Anaphylaxis 05/06/2019 Yes hydrocodone [id number] Drug Aller gy Unknown Itching 05/07/2019 Medications There is no data. Problems Date Dx Coded Attending Type Code Diagnosis Diagnosed By 06/25/2011 Ot 721.3 06/25/2011 Ot 842.00 06/25/2011 Ot 845.00 06/25/2011 Ot 846.0 06/25/2011 Ot 959.7 06/25/2011 Ot E000.8 06/25/2011 Ot E849.8 06/25/2011 Ot E884.1 05/09/2014 MARICRUZ GRAMAJO DO Ot 304.90 DRUG DEPEND NOS-UNSPEC 05/09/2014 MARICRUZ GRAMAJO DO Ot 599.0 URIN TRACT INFECTION NOS 05/09/2014 MARICRUZ GRAMAJO DO Ot 787.01 NAUSEA WITH VOMITING 05/09/2014 MARICRUZ GRAMAJO DO Ot 789.01 ABDOMINAL PAIN, RIGHT UPPER QUADRANT 05/09/2014 MARICRUZ GRAMAJO DO Ot 789.06 ABDOMINAL PAIN, EPIGASTRIC 08/16/2014 Ot 305.1 TOBA CONTACT 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 08/16/2014 Ot 401.9 HYPE RTENSION NOS 08/16/2014 Ot 682.6 CELL ULITIS OF LEG 08/16/2014 Ot 703.0 INGR OWING NAIL 06/27/2018 Eduardo Hoskins MD E66.0 1 Obesity Class III (BMI >=40) 06/27/2018 Eduardo Hoskins MD G89.2 9 Chronic pain - on daily narcotics 06/27/2018 Eduardo Hoskins MD I10 Hypertension, essential 06/27/2018 Eduardo Hoskins MD I48.0 Paroxysmal atrial fibrillation 06/27/2018 Eduardo Hoskins MD L93.0 Lupus 06/27/2018 Eduardo Hoskins MD M48.0 2 Spinal stenosis of cervical region 06/27/2018 Eduardo Hoskins MD N18.3 Chronic kidney disease, Stage III (moderate) 06/27/2018 Eduardo Hoskins MD Z23 Influenza Vaccination for Prophylaxis 06/27/2018 Eduardo Hoskins MD Z68.4 1 BMI 40-44.9 06/27/2018 Eduardo Hoskins MD I50.9 Congestive heart failure 07/04/2018 Eduardo Hoskins MD M32.9 Systemic lupus erythematosus 07/04/2018 Eduardo Hoskins MD Z00.0 0 Wellness exam 07/04/2018 Eduardo Hoskins MD F17.2 00 Tobacco Use: Current Smoker-Nicotine dependence, unspecified, uncomplicated 07/15/2018 Eduardo Hoskins MD R10.3 1 Abdominal pain, right lower quadrant 08/04/2018 Eduardo Hoskins MD M54.5 Low back pain 08/11/2018 Eduardo Hoskins MD F11.2 0 Opioid dependence 08/11/2018 Eduardo Hoskins MD M62.8 38 Muscle spasm 08/12/2018 Eduardo Hoskins MD R56.9 Other convulsions 09/10/2018 Eduardo Hoskins MD Z23 Influenza Vaccination for Prophylaxis 02/20/2019 Eduardo Hoskins MD M79.6 71 Foot pain, right 05/06/2019 MATT EL MD Ot Z01.81 8 ENCOUNTER FOR OTHER PREPROCEDURAL EXAMIN 05/07/2019 MATT EL MD Ot Z01.81 8 ENCOUNTER FOR OTHER PREPROCEDURAL EXAMIN 05/07/2019 MATT EL MD Ot F17.21 0 NICOTINE DEPENDENCE, CIGARETTES, UNCOMPL 05/07/2019 MATT EL MD, Ot F32.9 MAJOR DEPRESSIVE DISORDER, SINGLE EPISOD 05/07/2019 MATT EL MD, Ot F41.9 ANXIETY DISORDER, UNSPECIFIED 05/07/2019 MATT EL MD, Ot F43.10 POST-TRAUMATIC STRESS DISORDER, UNSPECIF 05/07/2019 MATT EL MD, Ot I13.0 HYP HRT CHR KDNY DIS W HRT FAIL AND ST 05/07/2019 MATT EL MD, Ot I25.2 OLD MYOCARDIAL INFARCTION 05/07/2019 MATT EL MD, Ot I50.9 HEART FAILURE, UNSPECIFIED 05/07/2019 MATT EL MD, Ot I73.9 PERIPHERAL VASCULAR DISEASE, UNSPECIFIED 05/07/2019 MATT EL MD, Ot J45.90 9 UNSPECIFIED ASTHMA, UNCOMPLICATED 05/07/2019 MATT EL MD, Ot L08.9 LOCAL INFECTION OF THE SKIN AND SUBCUTAN 05/07/2019 MATT EL MD, Ot L97.21 9 NON-PRESSURE CHRONIC ULCER OF RIGHT CALF 05/07/2019 MATT EL MD, Ot L98.8 OTH DISRD OF THE SKIN AND SUBCUTANEOUS T 05/07/2019 MATT EL MD, Ot M19.90 UNSPECIFIED OSTEOARTHRITIS, UNSPECIFIED 05/07/2019 MATT EL MD, Ot M79.89 OTHER SPECIFIED SOFT TISSUE DISORDERS 05/07/2019 MATT EL MD, Ot M81.0 AGE-RELATED OSTEOPOROSIS W/O CURRENT PAT 05/07/2019 MATT EL MD, Ot N18.3 CHRONIC KIDNEY DISEASE, STAGE 3 (MODERAT 05/07/2019 MATT EL MD, Ot S81.80 1A UNSPECIFIED OPEN WOUND, RIGHT LOWER LEG, 05/07/2019 MATT EL MD, Ot Z79.82 [facility] (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 OF ASPIRIN 05/07/2019 MATT EL MD, Ot Z80.0 FAMILY HISTORY OF MALIGNANT NEOPLASM OF 05/07/2019 MATT EL MD, Ot Z80.49 FAMILY HISTORY OF MALIGNANT NEOPLASM OF 05/07/2019 MATT EL MD, Ot Z82.49 FAMILY HX OF ISCHEM HEART DIS AND OTH DI 05/07/2019 MATT EL MD, Ot Z85.41 PERSONAL HISTORY OF MALIGNANT NEOPLASM O 05/07/2019 MATT EL MD, Ot Z90.71 0 ACQUIRED ABSENCE OF BOTH CERVIX AND UTER 05/07/2019 MATT EL MD, Ot Z90.89 ACQUIRED ABSENCE OF OTHER ORGANS 05/13/2019 Eduardo Hoskins MD E66.9 Obesity Class II (BMI 35-39.9) 05/13/2019 Eduardo Hoskins MD Z68.3 9 BMI 39-39.9 05/13/2019 Eduardo Hoskins MD Z23 Influenza Vaccination for Prophylaxis 05/19/2019 AIDA BARROS APRN Ot F43.10 POST-TRAUMATIC STRESS DISORDER, UNSPECIF 05/19/2019 AIDA BARROS DIRECTOR OF PRECLINICAL RESEARCH Ot G43.909 MIGRAINE, UNSP, NOT INTRACTABLE, WITHOUT 05/19/2019 AIDA BARROS APRN Ot L97.212 NON-PRESSURE CHRONIC ULCER OF RIGHT CALF 05/19/2019 AIDA BARROS APRN Ot N18.3 CHRONIC KIDNEY DISEASE, STAGE 3 (MODERAT 05/21/2019 AIDA BARROS APRN Ot F43.10 POST-TRAUMATIC STRESS DISORDER, UNSPECIF 05/21/2019 AIDA BARROS APRN Ot G43.909 MIGRAINE, UNSP, NOT INTRACTABLE, WITHOUT 05/21/2019 AIDA BARROS APRN Ot L97.212 NON-PRESSURE CHRONIC ULCER OF RIGHT CALF 05/21/2019 AIDA BARROS APRN Ot N18.3 CHRONIC KIDNEY DISEASE, STAGE 3 (MODERAT 05/26/2019 MATT EL MD, Ot F17.21 0 NICOTINE DEPENDENCE, CIGARETTES, UNCOMPL 05/26/2019 MATT EL MD Ot F32.9 MAJOR DEPRESSIVE DISORDER, SINGLE EPISOD 05/26/2019 MATT EL MD, Ot F41.9 ANXIETY DISORDER, UNSPECIFIED 05/26/2019 MATT EL MD, Ot F43.10 POST-TRAUMATIC STRESS DISORDER, UNSPECIF 05/26/2019 MATT EL MD, Ot I13.0 HYP HRT CHR KDNY DIS W HRT FAIL AND ST 05/26/2019 MATT EL MD, Ot I25.2 OLD MYOCARDIAL INFARCTION 05/26/2019 MATT EL MD, Ot I50.9 HEART FAILURE, UNSPECIFIED 05/26/2019 MATT EL MD, Ot I73.9 PERIPHERAL VASCULAR DISEASE, UNSPECIFIED 05/26/2019 MATT EL MD, Ot J45.90 9 UNSPECIFIED ASTHMA, UNCOMPLICATED 05/26/2019 MATT EL MD, Ot L08.9 LOCAL INFECTION OF THE SKIN AND SUBCUTAN 05/26/2019 MATT EL MD, Ot L97.21 9 NON-PRESSURE CHRONIC ULCER OF RIGHT CALF 05/26/2019 MATT EL MD, Ot L98.8 OTH DISRD OF THE SKIN AND SUBCUTANEOUS T 05/26/2019 MATT EL MD, Ot M19.90 UNSPECIFIED OSTEOARTHRITIS, UNSPECIFIED 05/26/2019 MATT EL MD, Ot M79.89 OTHER SPECIFIED SOFT TISSUE DISORDERS 05/26/2019 MATT EL MD, Ot M81.0 AGE-RELATED OSTEOPOROSIS W/O CURRENT PAT 05/26/2019 MATT EL MD, Ot N18.3 CHRONIC KIDNEY DISEASE, STAGE 3 (MODERAT 05/26/2019 MATT EL MD, Ot S81.80 1A UNSPECIFIED OPEN WOUND, RIGHT LOWER LEG, 05/26/2019 MATT EL MD, Ot Z79.82 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 SPECIALIST (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 OF 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 05/26/2019 MATT EL MD, Ot Z80.0 FAMILY HISTORY OF MALIGNANT NEOPLASM OF 05/26/2019 MATT EL MD, Ot Z80.49 FAMILY HISTORY OF MALIGNANT NEOPLASM OF 05/26/2019 MATT EL MD, Ot Z82.49 FAMILY HX OF ISCHEM HEART DIS AND OTH DI 05/26/2019 MATT EL MD, Ot Z85.41 PERSONAL HISTORY OF MALIGNANT NEOPLASM O 05/26/2019 MATT EL MD, Ot Z90.71 0 ACQUIRED ABSENCE OF BOTH CERVIX AND UTER 05/26/2019 MATT EL MD, Ot Z90.89 ACQUIRED ABSENCE OF OTHER ORGANS 06/10/2019 IADA BARROS APRN Ot F43.10 POST-TRAUMATIC STRESS DISORDER, UNSPECIF 06/10/2019 AIDA BARROS APRN Ot G43.909 MIGRAINE, UNSP, NOT INTRACTABLE, WITHOUT 06/10/2019 AIDA BARROS APRN Ot L97.212 NON-PRESSURE CHRONIC ULCER OF RIGHT CALF 06/10/2019 AIDA BARROS APRN Ot N18.3 CHRONIC KIDNEY DISEASE, STAGE 3 (MODERAT 06/16/2019 Eduardo Hoskins MD Z68.3 8 BMI 38-38.9 06/25/2019 MATT EL MD, Ot F17.21 0 NICOTINE DEPENDENCE, CIGARETTES, UNCOMPL 06/25/2019 MATT EL MD, Ot F32.9 MAJOR DEPRESSIVE DISORDER, SINGLE EPISOD 06/25/2019 MATT EL MD, Ot F41.9 ANXIETY DISORDER, UNSPECIFIED 06/25/2019 MATT EL MD, Ot F43.10 POST-TRAUMATIC STRESS DISORDER, UNSPECIF 06/25/2019 MATT EL MD, Ot I13.0 HYP HRT CHR KDNY DIS W HRT FAIL AND ST 06/25/2019 MATT EL MD, Ot I25.2 OLD MYOCARDIAL INFARCTION 06/25/2019 MATT EL MD, Ot I50.9 HEART FAILURE, UNSPECIFIED 06/25/2019 MATT EL MD, Ot I73.9 PERIPHERAL VASCULAR DISEASE, UNSPECIFIED 06/25/2019 MATT EL MD, Ot J45.90 9 UNSPECIFIED ASTHMA, UNCOMPLICATED 06/25/2019 MATT EL MD, Ot L08.9 LOCAL INFECTION OF THE SKIN AND SUBCUTAN 06/25/2019 MATT EL MD, Ot L97.21 9 NON-PRESSURE CHRONIC ULCER OF RIGHT CALF 06/25/2019 MATT EL MD, Ot L98.8 OTH DISRD OF THE SKIN AND SUBCUTANEOUS T 06/25/2019 MATT EL MD, Ot M19.90 UNSPECIFIED OSTEOARTHRITIS, UNSPECIFIED 06/25/2019 MATT EL MD, Ot M79.89 OTHER SPECIFIED SOFT TISSUE DISORDERS 06/25/2019 MATT EL MD, Ot M81.0 AGE-RELATED OSTEOPOROSIS W/O CURRENT PAT 06/25/2019 MATT EL MD, Ot N18.3 CHRONIC KIDNEY DISEASE, STAGE 3 (MODERAT 06/25/2019 MATT EL MD, Ot S81.80 1A UNSPECIFIED OPEN WOUND, RIGHT LOWER LEG, 06/25/2019 MATT EL MD, Ot Z79.82 [facility] (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 OF ASPIRIN 06/25/2019 MATT EL MD, Ot Z80.0 FAMILY HISTORY OF MALIGNANT NEOPLASM OF 06/25/2019 MATT EL MD, Ot Z80.49 FAMILY HISTORY OF MALIGNANT NEOPLASM OF 06/25/2019 MATT EL MD, Ot Z82.49 FAMILY HX OF ISCHEM HEART DIS AND OTH DI 06/25/2019 MATT EL MD, Ot Z85.41 PERSONAL HISTORY OF MALIGNANT NEOPLASM O 06/25/2019 MATT EL MD, Ot Z90.71 0 ACQUIRED ABSENCE OF BOTH CERVIX AND UTER 06/25/2019 MATT EL MD, Ot Z90.89 ACQUIRED ABSENCE OF OTHER ORGANS 07/03/2019 HUMBERTO MARQUIS APRN Ot F17.210 NICOTINE DEPENDENCE, CIGARETTES, UNCOMPL 07/03/2019 HUMBERTO MARQUIS APRN Ot F41 .9 ANXIETY DISORDER, UNSPECIFIED 07/03/2019 HUMBERTO MARQUIS APRN Ot F43.10 POST-TRAUMATIC STRESS DISORDER, UNSPECIF 07/03/2019 HUMBERTO MARQUIS APRN, Ot G43.909 MIGRAINE, UNSP, NOT INTRACTABLE, WITHOUT 07/03/2019 HUMBERTO MARQUIS APRN Ot I10 ESSENTIAL (PRIMARY) HYPERTENSION 07/03/2019 HUMBERTO MARQUIS APRN Ot I48.91 UNSPECIFIED ATRIAL FIBRILLATION 07/03/2019 HUMBERTO MARQUIS APRN Ot J44 .9 CHRONIC OBSTRUCTIVE PULMONARY DISEASE, U 07/03/2019 HUMBERTO MARQUIS APRN Ot M25.531 PAIN IN RIGHT WRIST 07/03/2019 HUMBERTO MARQUIS APRN Ot S62.001A UNSP FRACTURE OF NAVICULAR BONE OF RIGHT 07/03/2019 HUMBERTO MARQUIS APRN Ot Z79.82 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 SPECIALIST (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 OF ASPIRIN 07/03/2019 HUMBERTO MARQUIS APRN Ot Z85.41 PERSONAL HISTORY OF MALIGNANT NEOPLASM O 07/03/2019 HUMBERTO MARQUIS APRN Ot Z85.43 PERSONAL HISTORY OF MALIGNANT NEOPLASM O 07/03/2019 HUMBERTO MARQUIS APRN Ot Z87.39 PERSONAL HISTORY OF DISEASES OF THE MS S 07/03/2019 HUMBERTO MARQUIS APRN Ot Z88 .1 ALLERGY STATUS TO OTHER ANTIBIOTIC AGENT 07/03/2019 HUMBERTO MARQUIS APRN Ot Z88 .5 ALLERGY STATUS TO NARCOTIC AGENT STATUS 07/03/2019 HUMBERTO MARQUIS APRN Ot Z88 .6 ALLERGY STATUS TO ANALGESIC AGENT STATUS 07/03/2019 HUMBERTO MARQUIS APRN Ot Z88 .8 ALLERGY STATUS TO OTH DRUG/MEDS/BIOL SUB 07/03/2019 HUMBERTO MARQUIS APRN Ot Z90.49 ACQUIRED ABSENCE OF OTHER SPECIFIED PART 07/03/2019 HUMBERTO MARQUIS APRN Ot Z90.710 ACQUIRED ABSENCE OF BOTH CERVIX AND UTER 07/03/2019 HUMBERTO MARQUIS APRN Ot Z90.89 ACQUIRED ABSENCE OF OTHER ORGANS Procedures There is no data. Results Test Result Range Methicillin resistant Staphylococcus aur eus (MRSA) screening culture - 05/07/19 08:30 Methicillin resistant Staphylococcus aureus (MRSA) scr eening culture NEG NRG Bacteria identification in isolate by an aerobe culture - 05/07/19 09:45 Bacteria identification in isolate by anaerobe culture NOANA NRG Gram stain microscopy - 05/07/19 09:45 Gram stain microscopy No bactaeria seen NRG Bacteria identification in wound by cult ure - 05/07/19 09:45 Bacteria identification in wound by culture [id number] NRG FREE TEXT EXTERNAL ISOLATED FROM BROTH ONLY NRG QUANTITY OF GROWTH . NRG FREE TEXT ENTRY 2 SUSCEPTIBILITY REPORTED 05/11 15 :45 NRG FREE TEXT ENTRY 3 NO BETA STREP, STAPH, OR PSEUDOM ONAS NRG Dirithromycin susceptibility test by dis k diffusion - 05/07/19 09:45 Vancomycin susceptibility test by minimum inhibitory c oncentration <= NRG Ampicillin susceptibility test by minimum inhibitory c oncentration <= NRG Linezolid susceptibility test by minimum inhibitory co ncentration 2 NRG Daptomycin susc ANGEL <= NRG Fungus culture - 05/07/19 09:45 Bacteria identification in isolate by an aerobe culture - 05/07/19 09:52 FREE TEXT EXTERNAL SEE COMMENTS NRG QUANTITY OF GROWTH Moderate Growth NRG Bacteria identification in isolate by anaerobe culture [id number] NRG Gram stain microscopy - 05/07/19 09:52 Gram stain microscopy GRAM POSITIVE BACILLI NRG Bacteria identification in wound by cult ure - 05/07/19 09:52 Bacteria identification in wound by culture NG NRG Fungus culture - 05/07/19 09:52 Encounters ACCT No. Visit Date/Time Discharge Status Pt. Type Provider Facility Loc./Unit Complaint [id number] 07/08/2019 08:50:01 ACT Unknown Gato GUZMAN, Eduardo [id number] 07/26/2019 13:26:00 020 23:59:59 [facility] Emergency CEM SEGOVIA [facility] ER INCISION OPENED UP/BLEE DING [id number] 07/17/2019 19:18:00 20:04:00 DIS Emergency HUMBERTO MARQUIS APRN [facility] ER MOUTH PAIN [id number] 06/28/2019 16:56:00 18:22:00 DIS Outpatient HUMBERTO MARQUIS DIRECTOR OF PRECLINICAL RESEARCH [facility] ER FALL/R WRIST INJ/DENTAL INJ [id number] 05/07/2019 07:50:00 12:50:00 DIS Outpatient MATT EL MD [facility] SD RIGHT CALF WOUND [id number] 05/06/2019 15:45:00 16:23:00 DIS Outpatient MATT EL MD [facility] PREOP RIGHT CALF WOUND [id number] 05/05/2019 10:16:00 23:59:59 CLS Outpatient AIDA BARROS APRN [facility] WOUNDCARE [id number] 05/08/2014 22:04:00 00:16:00 DIS Emergency MARICRUZ GRAMAJO DO [facility] ER VOMITING [id number] 08/16/2014 15:49:00 Document Registration [id number] 08/16/2014 15:49:00 Document Registration [id number] 08/16/2014 15:18:00 Document Registration [id number] 06/25/2011 00:24:00 Document Registration
== END | disposition left against medical advice (07) ==
LOC: EDUNIT# 13:24 → ER 13:26
DX: L76.22 Postprocedural hemorrhage of skin and subcutaneous tissue following other procedure (principal)
CPT/HCPCS: 99282

== ENCOUNTER 2019-08-08 20:41 | Emergency (ER) | payer MEDICARE, MEDICAID ==
[~2019-08-08] VITALS: Ht 170 cm; Wt 120.4 kg
[~2019-08-08 20:41] MED LIST changes: -AMPI500C9 PO; +CETI10TA20 PO; -CETI10TA21 PO; -LEVO750T9 PO; -METH-313 PO; -METH4TAB PO; -MUPI22OI2; -TRAM50TA3
[2019-08-08] MEDS ORDERED: MUPI22OI2 (21:00)
[2019-08-08] MEDS ORDERED: TRAM50TA3 (21:00)
[2019-08-08 21:30] LABS: BILIRUBIN,URINE NEGATIVE (NEGATIVE); CLARITY,URINE CLEAR; COLOR,URINE YELLOW; GLUCOSE, URINE (UA) NEGATIVE (NEGATIVE); KETONES,URINE NEGATIVE (NEGATIVE); LEUKOCYTE ESTERASE ,URINE NEGATIVE (NEGATIVE); NITRITE,URINE NEGATIVE (NEGATIVE); PH,URINE 5.5 (5-9); PROTEIN,URINE NEGATIVE (NEGATIVE)
[2019-08-08 21:31] LABS: AMORPHOUS SEDIMENT,UR FEW AMOR URATES /LPF; BACTERIA,URINE TRACE /HPF
[2019-08-08 21:44] LABS: AMPHETAMINE SCREEN, URINE NEGATIVE (NEGATIVE); BARBITURATE SCREEN URINE NEGATIVE (NEGATIVE); BENZODIAZEPINES SCREEN URINE NEGATIVE (NEGATIVE); CANNABINOID SCREEN, URINE NEGATIVE (NEGATIVE); COCAINE SCREEN URINE NEGATIVE (NEGATIVE); METHADONE STAT NEGATIVE (NEGATIVE); METHAMPHETAMINE SCREEN URINE S NEGATIVE (NEGATIVE); OPIATE SCREEN URINE NEGATIVE (NEGATIVE); OXYCODONE STAT NEGATIVE (NEGATIVE); TRICYCLIC ANTIDEPRESSANTS SCRE POSITIVE (NEGATIVE)
[2019-08-08 21:45] LABS: PROPOXYPHENE STAT NEGATIVE (NEGATIVE)
[2019-08-08] MEDS ORDERED: ACETAMINOPHEN 500 MG TAB (TYLENOL) PO ONE (21:45)
[2019-08-08] MEDS ORDERED: IBUPROFEN 800 MG (MOTRIN) TAB PO ONE (21:45)
[2019-08-08] MEDS ORDERED: LEVO750T9 PO (23:24)
[2019-08-08] MEDS ORDERED: AMPI500C9 PO (23:24)
[2019-08-08] MEDS ORDERED: METH4TAB PO (23:24)
[2019-08-08] MEDS ORDERED: METH-313 PO (23:24)
--- NOTE | 2019-08-08 23:24 | ED Back Pain ---
General Chief Complaint: Back Problems Stated Complaint: BACK PAIN LEFT LEG WEAKNESS/NUMBNESS Nursing Triage Note: lower back pain, left leg numbness x4 hrs. no injury. hx lower back pain. Nursing Sepsis Screen: Possible Severe Sepsis Risk Allergies and Home Medications Allergies Coded Allergies: ketorolac (Unverified Allergy, Mild, 07/13/09) naproxen (Unverified Allergy, Mild, 07/13/09) amoxicillin (Verified Allergy, Unknown, 05/06/19) ciprofloxacin (Unverified Allergy, Unknown, 08/16/14) hydrocodone (Verified Allergy, Unknown, Itching, 05/07/19) N/V. morphine (Unverified Allergy, Unknown, 08/16/14) pregabalin (Verified Allergy, Unknown, Anaphylaxis, 05/06/19) tramadol (Unverified Allergy, Unknown, 08/16/14) Uncoded Allergies: BEES (Allergy, Unknown, 08/16/14) Home Medications Amitriptyline HCl 50 Mg Tablet, 50 MG PO HS, (Reported) Aspirin 81 Mg Tablet.dr, 81 MG PO DAILY, (Reported) Atenolol 100 Mg Tablet, 100 MG PO HS, (Reported) Buspirone HCl 10 Mg Tablet, 20 MG PO BID PRN for ANXIETY, (Reported) take 2 (10mg) tabs Cetirizine HCl 10 Mg Tablet, 10 MG PO DAILY, (Reported) Clonidine HCl 0.1 Mg Tablet, 0.1-0.2 MG PO BID PRN for ANXIETY, (Reported) take 1 tab in am take 2 tab in pm if needed Furosemide 80 Mg Tablet, 80 MG PO DAILY, (Reported) Omeprazole 40 Mg Capsule.dr, 40 MG PO BID, (Reported) Potassium Chloride 10 Meq Tablet.er, 10 MEQ PO TID, (Reported) Prazosin HCl 2 Mg Capsule, 2 MG PO HS, (Reported) Quetiapine Fumarate 50 Mg Tablet, 50 MG PO HS, (Reported) Ranitidine HCl 150 Mg Tablet, 150 MG PO BID, (Reported) Past Hedugxh-Ayiohd-Migmvh Hx Patient Social History Alcohol Use: Denies Use Recreational Drug Use: No Smoking Status: Current Everyday Smoker Type Used: Cigarettes 2nd Hand Smoke Exposure: Yes Recent Foreign Travel: No Contact w/Someone Who Travel: No Recent Infectious Disease Expo: No Recent Hopitalizations: No Physical Abuse: No Sexual Abuse: No Mistreated: No Fear: No Immunizations Up To Date Date of Pneumonia Vaccine: November 04, 2013 Date of Influenza Vaccine: Apr 07, 2014 Seasonal Allergies Seasonal Allergies: Yes Past Medical History Surgeries: Yes (R ANKLE , 5th metatarsal rt foot, L3-S21 laminectomy) Adenoidectomy, Appendectomy, Ear Surgery, Gallbladder, Hysterectomy, Orthopedic, Tonsillectomy Respiratory: Yes Asthma, COPD Currently Using CPAP: No Currently Using BIPAP: No Cardiac: Yes (tachycardia-SVT, mitral stenosis, MVP, long QT) Atrial Fibrillation, Cardiomyopathy, Heart Attack, Heart Murmur, Hypertension Neurological: Yes Headaches /Migraines : No 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: Hysterectomy Genitourinary: Yes Renal Failure Gastrointestinal: Yes Ulcer Musculoskeletal: Yes (DEGENERATIVE JOINT DISEASE, SPINAL STENOSIS) Degenerate Disk Disease, Scoliosis, Chronic Back Pain Endocrine: Yes Lupus HEENT: No Cancer: Yes Cervical, Ovarian, Uterine What Type of Treatment Did You: Surgical Intervention Psychosocial: Yes Anxiety, PTSD, Depression Integumentary: Yes (R calf wound, rt upper thigh, left upper chest-necrotic tissue) Blood Disorders: No Adverse Reaction/Blood Tranf: No Family Medical History No Pertinent Family Hx Physical Exam Vital Signs Vital Signs - First Documented 08/08/19 20:49 Temp 38.3 Pulse 106 Resp 18 B/P (MAP) 136/94 (108) Pulse Ox 97 O2 Delivery Room Air Capillary Refill : Less Than 3 Seconds Height, Weight, BMI Height: 5'6" Weight: 200lbs. oz. 90.795692ex; 41.00 BMI Method:Stated Progress/Results/Core Measures Results/Orders Lab Results Laboratory Tests Test 08/08/19 20:57 Range/Units Urine Color YELLOW Urine Clarity CLEAR Urine pH 5.5 5-9 Urine Specific [place] 1.020 1.016-1.022 Urine Protein NEGATIVE NEGATIVE Urine Glucose (UA) NEGATIVE NEGATIVE Urine Ketones NEGATIVE NEGATIVE Urine Nitrite NEGATIVE NEGATIVE Urine Bilirubin NEGATIVE NEGATIVE Urine Urobilinogen 0.2 < = 1.0 MG/DL Urine Leukocyte Esterase NEGATIVE NEGATIVE Urine RBC (Auto) NEGATIVE NEGATIVE Urine RBC NONE /HPF Urine WBC NONE /HPF Urine Crystals PRESENT H /LPF Urine Amorphous Sediment FEW MCKENZIE URATES H /LPF Urine Bacteria TRACE /HPF Urine Casts NONE /LPF Urine Mucus SMALL H /LPF Urine Culture Indicated NO Urine Opiates Screen NEGATIVE NEGATIVE Urine Oxycodone Screen NEGATIVE NEGATIVE Urine Methadone Screen NEGATIVE NEGATIVE Urine Propoxyphene Screen NEGATIVE NEGATIVE Urine Barbiturates Screen NEGATIVE NEGATIVE Ur Tricyclic Antidepressants Screen POSITIVE H NEGATIVE Urine Phencyclidine Screen POSITIVE H NEGATIVE Urine Amphetamines Screen NEGATIVE NEGATIVE Urine Methamphetamines Screen NEGATIVE NEGATIVE Urine Benzodiazepines Screen NEGATIVE NEGATIVE Urine Cocaine Screen NEGATIVE NEGATIVE Urine Cannabinoids Screen NEGATIVE NEGATIVE Micro Results Microbiology 08/08/19 Influenza Types A,B Antigen (ANGEL) - Final, Complete My Orders Orders - MARICRUZ GRAMAJO DO Drug Screen Stat (Urine) (08/08/19 20:53) Ua Culture If Indicated (08/08/19 20:53) Urine Bedside (08/08/19 20:53) Influenza A And B Antigens (08/08/19 21:31) Acetaminophen Tablet (Tylenol Tablet) (08/08/19 21:45) Ibuprofen Tablet (Motrin Tablet) (08/08/19 21:45) Ct Thoracic/Lumbar Spine Wo (08/08/19 21:42) Hand, Left, 3 Views (08/08/19 22:07) Levofloxacin Tablet (Levaquin Tablet) (08/08/19 23:30) Orphenadrine Injection (Norflex Injectio (08/08/19 23:30) Methylprednisolone Sod Succ (Solu-Medrol (08/08/19 23:30) Medications Given in ED Current Medications Medications Dose Ordered Sig/Gomez Route Start Time Stop Time Status Last Admin Dose Admin Acetaminophen 1,000 mg ONCE ONCE PO 08/08/19 21:45 08/08/19 21:46 DC 08/08/19 22:04 1,000 MG Ibuprofen 800 mg ONCE ONCE PO 08/08/19 21:45 08/08/19 21:46 DC 08/08/19 22:04 800 MG Vital Signs/I&O 08/08/19 08/08/19 08/08/19 20:49 22:04 22:04 Temp 38.3 38.3 38.3 Pulse 106 Resp 18 B/P (MAP) 136/94 (108) Pulse Ox 97 O2 Delivery Room Air Blood Pressure Mean: 108 Departure Impression Primary Impression: Lumbar back pain with radiculopathy affecting left lower extremity Additional Impressions: MULTIPLE SORES ON RIGHT THIGH Fever Upper respiratory infection Disposition: 01 HOME, SELF-CARE Condition: Stable Departure-Patient Inst. Referrals: [facility] (PCP/Family) Primary Care Physician Patient Instructions: Bacterial Upper Respiratory Infection, Adult (DC), Low Back Pain (DC), MANAGING YOUR CHRONIC PAIN, Radiculopathy, Wound Care (DC) Add. Discharge Instructions: TYLENOL 1 GRAM/ IBUPROFEN 800 MG 4 TIMES A DAY FOR PAIN OR FEVER CLEAN WOUNDS 2-3 TIMES A DAY WITH HIBICLENS AND APPLY MUPIROCIN TO WOUNDS AND APPLY FRESH DRESSING USE MUPIROCIN IN NOSE AT LEAST TWICE A DAY ALTERNATE ICE AND HEAT TO SORE AREAS AT 20 MINUTE INTERVALS LOTS OF CLEAR LIQUIDS FOLLOW UP WITH DR. EL NEXT WEEK FOR YOUR LEG WOUNDS, AND FOLLOW UP WITH [facility] ON SATURDAY FOR FURTHER CARE All discharge instructions reviewed with patient and/or family. Voiced understanding. Scripts Methylprednisolone (Medrol) 4 Mg Tab.ds.pk 4 MG PO UD, #1 PKG Prov: MARICRUZ GRAMAJO DO 08/08/19 Methocarbamol (Robaxin-750) 750 Mg Tablet 750 MG PO QID, #20 TAB Prov: MARICRUZ GRAMAJO K DO 08/08/19 Ampicillin Trihydrate (Ampicillin Trihydrate) 500 Mg Capsule 500 MG PO QID, #40 CAP Prov: ROXMARICRUZ K DO 08/08/19 Levofloxacin (Levaquin) 750 Mg Tablet 750 MG PO DAILY, #7 TAB Prov: MARICRUZ GRAMAJO K DO 08/08/19 MARICRUZ GRAMAJO DO Aug 08, 2019 23:24
[2019-08-08 23:30] VITALS: BP 132/88
[2019-08-08] MEDS ORDERED: LEVOFLOXACIN 500 MG TAB (LEVAQUIN) PO ONE (23:30)
[2019-08-08] MEDS ORDERED: ORPHENADRINE 60 MG/2 ML (NORFLEX) AMP IM ONE (23:30)
[2019-08-08] MEDS ORDERED: methylPREDNISolone 125 MG (Solu-MEDROL) VIAL IM ONE (23:30)
--- NOTE | 2019-08-09 06:26 | Diagnostic Imaging Report ---
PROCEDURE: CT thoracic and lumbar spine without contrast. TECHNIQUE: Multiple contiguous axial images were obtained through the thoracic and lumbar spine without the use of intravenous contrast. Sagittal and coronal reformations were then performed. INDICATION: Back pain. COMPARISON: None. FINDINGS: Normal alignment of the thoracolumbar spine. Postoperative findings of laminectomies at L4 and L5. There is mild anterior wedging of the L1 segment resulting in approximately 10% height loss. This is age indeterminate. Vertebral body heights are otherwise preserved. No other findings suspicious for fracture. Visualized ribs are intact. The visualized pelvis is negative. Calcified mediastinal and left hilar lymph nodes. Cholecystectomy. IMPRESSION: 1. Anterior wedging of the L1 vertebral body is age indeterminate, resulting in approximately 10% height loss. This could be further characterized with MRI. 2. Laminectomies at L4 and L5. Dictated by: Dictated on workstation # [id number]
--- NOTE | 2019-08-09 08:05 | Diagnostic Imaging Report ---
EXAM: HAND, LEFT, 3 VIEWS INDICATION: Left 5th finger pain. COMPARISON: None. FINDINGS: No fracture or malalignment. No suspicious osteoblastic or lytic lesions. Soft tissue shadows are unremarkable. IMPRESSION: No acute radiographic findings in the left hand. Dictated by: Dictated on workstation # [id number]
== END 2019-08-08 23:30 | disposition home or self-care (01) ==
LOC: EDUNIT# 20:41 → ER 20:44
DX: M54.16 Radiculopathy, lumbar region (principal); L97.919 Non-pressure chronic ulcer of unspecified part of right lower leg with unspecified severity; J06.9 Acute upper respiratory infection, unspecified; I10 Essential (primary) hypertension; I48.91 Unspecified atrial fibrillation; I25.2 Old myocardial infarction; F41.9 Anxiety disorder, unspecified; F43.10 Post-traumatic stress disorder, unspecified; F32.9 Major depressive disorder, single episode, unspecified; F17.210 Nicotine dependence, cigarettes, uncomplicated; Z79.82 Long term (current) use of aspirin; Z88.6 Allergy status to analgesic agent; Z88.0 Allergy status to penicillin; Z88.1 Allergy status to other antibiotic agents; Z88.5 Allergy status to narcotic agent; Z88.8 Allergy status to other drugs, medicaments and biological substances
CPT/HCPCS: 72128; 72131; 73130; 80306; 81000; 84703; 87804; 96372

== ENCOUNTER 2019-08-22 01:33 | Emergency (ER) | payer MEDICAID, MEDICARE ==
[~2019-08-22] VITALS: Ht 167 cm; Wt 124.0 kg
[~2019-08-22 01:33] MED LIST changes: +AMPI500C9 PO; -CETI10TA20 PO; +CETI10TA21 PO; +HYDR-34 PO; -HYDR-3816 PO; +LEVO750T9 PO; +METH-313 PO; +METH4TAB PO; +MUPI22OI2; +TRAM50TA3
[2019-08-22] MEDS ORDERED: CLINDAMYCIN 150 MG (CLEOCIN) CAP PO STA (02:01)
--- NOTE | 2019-08-22 02:09 | ED EENT ---
History of Present Illness General Chief Complaint: Dental Problems/Pain Stated Complaint: ABSCESS IN JAW Nursing Triage Note: AMBULATORY TO ED ROOM 6 STATING "TOOTH ABSCESS POPPED" ON TOP RIGHT SIDE. Source: patient Exam Limitations: no limitations History of Present Illness Date Seen by Provider: Aug 22, 2019 Time Seen by Provider: 01:53 Initial Comments Here with report of dental abscess that has drained to the right upper jaw near the canine. She's had problems there before. Started hurting worse tonight and swollen up but then popped and drained. She is concerned because there is a hole there. Does have poor dentition overall. Is getting with a dentist and has had ongoing dental care. Denies other concerns. Timing/Duration: this afternoon Severity: moderate Location: mouth, dental Associated Symptoms: No cough, No drooling, No fever, No sore throat; tooth pain; No voice change Allergies and Home Medications Allergies Coded Allergies: ketorolac (Unverified Allergy, Mild, 07/13/09) naproxen (Unverified Allergy, Mild, 07/13/09) amoxicillin (Verified Allergy, Unknown, 05/06/19) ciprofloxacin (Unverified Allergy, Unknown, 08/16/14) hydrocodone (Verified Allergy, Unknown, Itching, 05/07/19) N/V. morphine (Unverified Allergy, Unknown, 08/16/14) pregabalin (Verified Allergy, Unknown, Anaphylaxis, 05/06/19) tramadol (Unverified Allergy, Unknown, 08/16/14) Uncoded Allergies: BEES (Allergy, Unknown, 08/16/14) Home Medications Amitriptyline HCl 50 Mg Tablet, 50 MG PO HS, (Reported) Ampicillin Trihydrate 500 Mg Capsule, 500 MG PO QID Prescribed by: MARICRUZ GRAMAJO on 08/08/19 4154 Aspirin 81 Mg Tablet.dr, 81 MG PO DAILY, (Reported) Atenolol 100 Mg Tablet, 100 MG PO HS, (Reported) Buspirone HCl 10 Mg Tablet, 20 MG PO BID PRN for ANXIETY, (Reported) take 2 (10mg) tabs Cetirizine HCl 10 Mg Tablet, 10 MG PO DAILY, (Reported) Clonidine HCl 0.1 Mg Tablet, 0.1-0.2 MG PO BID PRN for ANXIETY, (Reported) take 1 tab in am take 2 tab in pm if needed Furosemide 80 Mg Tablet, 80 MG PO DAILY, (Reported) Levofloxacin 750 Mg Tablet, 750 MG PO DAILY Prescribed by: MARICRUZ GRAMAJO on 08/08/192323 Methocarbamol 750 Mg Tablet, 750 MG PO QID Prescribed by: MARICRUZ GRAMAJO on 08/08/192323 Methylprednisolone 4 Mg Tab.ds.pk, 4 MG PO UD Prescribed by: MARICRUZ GRAMAJO on 08/08/192323 Omeprazole 40 Mg Capsule.dr, 40 MG PO BID, (Reported) Potassium Chloride 10 Meq Tablet.er, 10 MEQ PO TID, (Reported) Prazosin HCl 2 Mg Capsule, 2 MG PO HS, (Reported) Quetiapine Fumarate 50 Mg Tablet, 50 MG PO HS, (Reported) Ranitidine HCl 150 Mg Tablet, 150 MG PO BID, (Reported) Patient Home Medication List Home Medication List Reviewed: Yes Review of Systems Review of Systems Constitutional: see HPI; No chills, No fever Eyes: No Symptoms Reported Ears: No Symptoms Reported Nose: no symptoms reported Mouth: see HPI, pain, swelling Throat: no symptoms reported Respiratory: no symptoms reported Cardiovascular: no symptoms reported Past Etddluv-Bqjlwl-Ejkxew Hx Past Med/Social Hx: Reviewed Nursing Past Med/Soc Hx Patient Social History Alcohol Use: Denies Use Recreational Drug Use: No Smoking Status: Current Everyday Smoker Type Used: Cigarettes 2nd Hand Smoke Exposure: Yes Recent Foreign Travel: No Contact w/Someone Who Travel: No Recent Infectious Disease Expo: No Recent Hopitalizations: No Physical Abuse: No Sexual Abuse: No Mistreated: No Fear: No Immunizations Up To Date Date of Pneumonia Vaccine: November 04, 2013 Date of Influenza Vaccine: Apr 07, 2014 Seasonal Allergies Seasonal Allergies: Yes Past Medical History Surgeries: Yes (R ANKLE , 5th metatarsal rt foot, L3-S21 laminectomy) Adenoidectomy, Appendectomy, Ear Surgery, Gallbladder, Hysterectomy, Orthopedic, Tonsillectomy Respiratory: Yes Asthma, COPD Currently Using CPAP: No Currently Using BIPAP: No Cardiac: Yes (tachycardia-SVT, mitral stenosis, MVP, long QT) Atrial Fibrillation, Cardiomyopathy, Heart Attack, Heart Murmur, Hypertension Neurological: Yes Headaches /Migraines 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 Genitourinary: Yes Renal Failure Gastrointestinal: Yes Ulcer Musculoskeletal: Yes (DEGENERATIVE JOINT DISEASE, SPINAL STENOSIS) Degenerate Disk Disease, Scoliosis, Chronic Back Pain Endocrine: Yes Lupus HEENT: No Cancer: Yes Cervical, Ovarian, Uterine What Type of Treatment Did You: Surgical Intervention Psychosocial: Yes Anxiety, PTSD, Depression Integumentary: Yes (R calf wound, rt upper thigh, left upper chest-necrotic tissue) Blood Disorders: No Adverse Reaction/Blood Tranf: No Family Medical History Reviewed Nursing Family Hx No Pertinent Family Hx Physical Exam Vital Signs Vital Signs - First Documented 08/22/19 01:44 Temp 36.4 Pulse 85 Resp 18 B/P (MAP) 111/75 (87) O2 Delivery Room Air Height, Weight, BMI Height: 5'6" Weight: 200lbs. oz. 90.475878ef; 44.00 BMI Method:Stated General Appearance: WD/WN, no apparent distress Nose: normal inspection Mouth/Throat: pharynx normal, dental tenderness, maxillary swelling; No tongue swollen, No tonsillar exudate, No trismus, No voice changes; other (dental tenderness near canine on right side of her. Area where there was obvious abscess and whole with drainage. No significant swelling but does have some tenderness. Poor dentition overall.) Neck: full range of motion, supple Cardiovascular: regular rate, rhythm, no murmur Respiratory: lungs clear, normal breath sounds Neurologic/Psychiatric: alert, oriented x 3 Progress/Results/Core Measures Results/Orders My Orders Orders - OLENA FORMAN MD Clindamycin Capsule (Cleocin Capsule) (08/22/19 02:01) Lidocaine 2% Viscous 15 Ml (Xylocaine Vi (08/22/19 02:15) Vital Signs/I&O 08/22/19 01:44 Temp 36.4 Pulse 85 Resp 18 B/P (MAP) 111/75 (87) O2 Delivery Room Air Blood Pressure Mean: 87 Progress Progress Note : Progress Note Seen and evaluated. Clindamycin 450 mg by mouth. Lidocaine viscus 2% gel applied to gauze and applied area. Discharged home with return precautions. Patient verbalize understanding instructions and agreement with plan. Departure Impression Primary Impression: Dental abscess Disposition: 01 HOME, SELF-CARE Condition: Stable Departure-Patient Inst. Decision time for Depature: 02:08 Referrals: [facility] (PCP/Family) Primary Care Physician Patient Instructions: Tooth Abscess (DC) Add. Discharge Instructions: All discharge instructions reviewed with patient and/or family. Voiced understanding. Take medications as directed. You may use the lidocaine soaked gauze to the area of concern hourly as needed for pain. Try not to swallow saliva/lidocaine mixture. You may rinse mouth with salt water 3 times daily. It is very important that he follow-up with a dentist KIRA. Return for worse pain, fever, vomiting, swelling, difficulty with swallowing or breathing or other concerns as needed. You may take Tylenol/acetaminophen as needed for pain per package directions. Scripts Clindamycin HCl (Clindamycin HCl) 300 Mg Capsule 300 MG PO QID for 7 Days, #28 CAP 0 Refills Prov: OLENA FORMAN MD 08/22/19 OLENA FORMAN MD Aug 22, 2019 02:09
[2019-08-22] MEDS ORDERED: CLIN300C11 PO (02:11)
[2019-08-22] MEDS ORDERED: LIDOCAINE 2% VISCOUS 15 ML UDC PO ONE (02:15)
[2019-08-22 02:18] VITALS: BP 95/66
== END 2019-08-22 02:20 | disposition home or self-care (01) ==
LOC: EDUNIT# 01:33 → ER 01:35
DX: K04.7 Periapical abscess without sinus (principal); J44.9 Chronic obstructive pulmonary disease, unspecified; I10 Essential (primary) hypertension; I25.2 Old myocardial infarction; F41.9 Anxiety disorder, unspecified; F43.10 Post-traumatic stress disorder, unspecified; F32.9 Major depressive disorder, single episode, unspecified; F17.210 Nicotine dependence, cigarettes, uncomplicated; Z88.6 Allergy status to analgesic agent; Z85.41 Personal history of malignant neoplasm of cervix uteri; Z85.42 Personal history of malignant neoplasm of other parts of uterus; Z85.43 Personal history of malignant neoplasm of ovary; Z88.0 Allergy status to penicillin; Z88.1 Allergy status to other antibiotic agents; Z88.5 Allergy status to narcotic agent; Z88.8 Allergy status to other drugs, medicaments and biological substances; Z79.82 Long term (current) use of aspirin
CPT/HCPCS: 99283

== ENCOUNTER 2019-09-04 23:54 | Emergency (ER) | payer MEDICARE ==
[~2019-09-04] VITALS: Ht 168 cm; Wt 123.3 kg
[~2019-09-04 23:54] MED LIST changes: +CLIN300C11 PO
[2019-09-05] MEDS ORDERED: ALBU2.5V4 (00:14)
[2019-09-05] MEDS ORDERED: DICL1TAB53 (00:14)
[2019-09-05 00:22] LABS: BILIRUBIN,URINE NEGATIVE (NEGATIVE); CLARITY,URINE CLEAR; COLOR,URINE YELLOW; GLUCOSE, URINE (UA) NEGATIVE (NEGATIVE); KETONES,URINE NEGATIVE (NEGATIVE); LEUKOCYTE ESTERASE ,URINE NEGATIVE (NEGATIVE); NITRITE,URINE NEGATIVE (NEGATIVE); PROTEIN,URINE NEGATIVE (NEGATIVE)
[2019-09-05 00:36] LABS: BACTERIA,URINE TRACE /HPF; RBC,URINE 0-2 /HPF
[2019-09-05] MEDS ORDERED: LACTATED RINGERS 1,000 ML IV ONE (00:42)
--- NOTE | 2019-09-05 00:49 | ED General ---
General Chief Complaint: Cough/Cold/Flu Symptoms Stated Complaint: FALL,COUGH,FEVER Nursing Triage Note: FEVER, CHILLS, DIARRHEA, ABDOMINAL CRAMPING, WEAKNESS X1 DAY. Nursing Sepsis Screen: Possible Severe Sepsis Risk Source of Information: Patient Exam Limitations: No Limitations History of Present Illness Date Seen by Provider: Sep 05, 2019 Time Seen by Provider: 00:33 Initial Comments Here with report of fevers, chills, diarrhea or abdominal cramping and overall feeling terrible over the last 24 hours. She fell against the corner of a ladder at work last night and has swollen area to the anterior chest wall. She states this is typical when she has a wound afterwards that sometimes needs to be sutured fluid draining. She has several of these on her legs. The diarrhea has been quite significant today and she states every time she walks she has a stool. She is taken 19 Imodium today thinking that might help. She states that she does not feel well at all. Does report cough. Timing/Duration: 24 Hours Severity: Moderate Modifying Factors: worse with Eating, worse with Movement Associated Systoms: Chest Pain (right upper chest wall where there is an area of induration), Cough, Fever/Chills; No Headaches; Malaise; No Nausea/Vomiting; Shortness of Air, Weakness Allergies and Home Medications Allergies Coded Allergies: ketorolac (Unverified Allergy, Mild, 07/13/09) naproxen (Unverified Allergy, Mild, 07/13/09) amoxicillin (Verified Allergy, Unknown, 05/06/19) ciprofloxacin (Unverified Allergy, Unknown, 08/16/14) hydrocodone (Verified Allergy, Unknown, Itching, 05/07/19) N/V. morphine (Unverified Allergy, Unknown, 08/16/14) pregabalin (Verified Allergy, Unknown, Anaphylaxis, 05/06/19) tramadol (Unverified Allergy, Unknown, 08/16/14) Uncoded Allergies: BEES (Allergy, Unknown, 08/16/14) Home Medications Amitriptyline HCl 50 Mg Tablet, 50 MG PO HS, (Reported) Aspirin 81 Mg Tablet.dr, 81 MG PO DAILY, (Reported) Atenolol 100 Mg Tablet, 100 MG PO HS, (Reported) Buspirone HCl 10 Mg Tablet, 20 MG PO BID PRN for ANXIETY, (Reported) take 2 (10mg) tabs Cetirizine HCl 10 Mg Tablet, 10 MG PO DAILY, (Reported) Clonidine HCl 0.1 Mg Tablet, 0.1-0.2 MG PO BID PRN for ANXIETY, (Reported) take 1 tab in am take 2 tab in pm if needed Furosemide 80 Mg Tablet, 80 MG PO DAILY, (Reported) Methocarbamol 750 Mg Tablet, 750 MG PO QID Prescribed by: MARICRUZ GRAMAJO on 08/08/19 3514 Omeprazole 40 Mg Capsule.dr, 40 MG PO BID, (Reported) Potassium Chloride 10 Meq Tablet.er, 10 MEQ PO TID, (Reported) Prazosin HCl 2 Mg Capsule, 2 MG PO HS, (Reported) Quetiapine Fumarate 50 Mg Tablet, 50 MG PO HS, (Reported) Ranitidine HCl 150 Mg Tablet, 150 MG PO BID, (Reported) Patient Home Medication List Home Medication List Reviewed: Yes Review of Systems Review of Systems Constitutional: see HPI, chills, fever EENTM: No nose congestion, No throat pain Respiratory: cough, short of breath Cardiovascular: see HPI; No edema Gastrointestinal: No abdominal pain; diarrhea; No nausea, No vomiting Genitourinary: decreased output; No dysuria Musculoskeletal: No back pain; muscle pain Skin: change in color, lesions Psychiatric/Neurological: Denies Headache; Weakness All Other Systems Reviewed Negative Unless Noted: Yes Past Eqalbzj-Ltnseu-Qpkblq Hx Past Med/Social Hx: Reviewed Nursing Past Med/Soc Hx Patient Social History Alcohol Use: Denies Use Recreational Drug Use: No Smoking Status: Current Everyday Smoker Type Used: Cigarettes 2nd Hand Smoke Exposure: Yes Recent Foreign Travel: No Contact w/Someone Who Travel: No Recent Infectious Disease Expo: No Recent Hopitalizations: No Physical Abuse: No Sexual Abuse: No Mistreated: No Fear: No Immunizations Up To Date Date of Pneumonia Vaccine: November 04, 2013 Date of Influenza Vaccine: Apr 07, 2014 Seasonal Allergies Seasonal Allergies: Yes Past Medical History Surgeries: Yes (R ANKLE , 5th metatarsal rt foot, L3-S21 laminectomy) Adenoidectomy, Appendectomy, Ear Surgery, Gallbladder, Hysterectomy, Orthopedic, Tonsillectomy Respiratory: Yes Asthma, COPD, Tuberculosis Currently Using CPAP: No Currently Using BIPAP: No Cardiac: Yes (tachycardia-SVT, mitral stenosis, MVP, long QT) Atrial Fibrillation, Cardiomyopathy, Coronary Artery Disease, Heart Attack, Heart Murmur, High Cholesterol, Hypertension Neurological: Yes Headaches /Migraines : 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 Genitourinary: Yes Renal Failure Gastrointestinal: Yes Ulcer Musculoskeletal: Yes (DEGENERATIVE JOINT DISEASE, SPINAL STENOSISA.S/P LUMBAR LAMINECTOMY) Degenerate Disk Disease, Scoliosis, Chronic Back Pain Endocrine: Yes Lupus HEENT: No Cancer: Yes Cervical, Ovarian, Uterine What Type of Treatment Did You: Surgical Intervention Psychosocial: Yes Anxiety, PTSD, Depression Integumentary: Yes (R calf wound, rt upper thigh, left upper chest-necrotic tissue) Blood Disorders: No Adverse Reaction/Blood Tranf: No Family Medical History Reviewed Nursing Family Hx No Pertinent Family Hx Physical Exam Vital Signs Vital Signs - First Documented 09/05/19 00:00 Temp 36.9 Pulse 102 Resp 20 B/P (MAP) 144/97 (113) Pulse Ox 96 O2 Delivery Room Air Capillary Refill : Less Than 3 Seconds Height, Weight, BMI Height: 5'6" Weight: 200lbs. oz. 90.758661cv; 43.00 BMI Method:Stated General Appearance: No Apparent Distress, WD/WN, Obese HEENT: PERRL/EOMI, Pharynx Normal Neck: Normal Inspection, Non Tender, Supple Respiratory: Lungs Clear, Normal Breath Sounds Cardiovascular: No Murmur, Tachycardia Gastrointestinal: No Organomegaly, Non Tender, Soft Back: Normal Inspection, No CVA Tenderness, No Vertebral Tenderness Extremity: Normal Range of Motion, Non Tender Neurologic/Psychiatric: Alert, Oriented x3 Skin: Normal Color, Warm/Dry Progress/Results/Core Measures Suspected Sepsis Recent Fever Within 48 Hours: Yes Infection Criteria Present: Suspected New Infection New/Unexplained Altered Menta: No Sepsis Screen: Possible Severe Sepsis Risk SIRS Temperature: Pulse: 102 Respiratory Rate: 20 Laboratory Tests 09/05/19 00:50: White Blood Count 17.2H Blood Pressure 144 /97 Mean: 113 Laboratory Tests 09/05/19 00:50: Creatinine 1.06, Platelet Count 310, Total Bilirubin 0.3 Results/Orders Lab Results Laboratory Tests Test 09/05/19 00:10 09/05/19 00:50 Range/Units Urine Color YELLOW Urine Clarity CLEAR Urine pH 6.0 5-9 Urine Specific Jackson 1.025 H 1.016-1.022 Urine Protein NEGATIVE NEGATIVE Urine Glucose (UA) NEGATIVE NEGATIVE Urine Ketones NEGATIVE NEGATIVE Urine Nitrite NEGATIVE NEGATIVE Urine Bilirubin NEGATIVE NEGATIVE Urine Urobilinogen 0.2 < = 1.0 MG/DL Urine Leukocyte Esterase NEGATIVE NEGATIVE Urine RBC (Auto) NEGATIVE NEGATIVE Urine RBC 0-2 /HPF Urine WBC NONE /HPF Urine Squamous Epithelial Cells 2-5 /HPF Urine Crystals NONE /LPF Urine Bacteria TRACE /HPF Urine Casts NONE /LPF Urine Mucus NEGATIVE /LPF Urine Culture Indicated NO Urine Opiates Screen NEGATIVE NEGATIVE Urine Oxycodone Screen NEGATIVE NEGATIVE Urine Methadone Screen NEGATIVE NEGATIVE Urine Propoxyphene Screen NEGATIVE NEGATIVE Urine Barbiturates Screen NEGATIVE NEGATIVE Ur Tricyclic Antidepressants Screen POSITIVE H NEGATIVE Urine Phencyclidine Screen POSITIVE H NEGATIVE Urine Amphetamines Screen POSITIVE H NEGATIVE Urine Methamphetamines Screen POSITIVE H NEGATIVE Urine Benzodiazepines Screen NEGATIVE NEGATIVE Urine Cocaine Screen NEGATIVE NEGATIVE Urine Cannabinoids Screen NEGATIVE NEGATIVE White Blood Count 17.2 H 4.3-11.0 10^3/uL Red Blood Count 4.79 4.35-5.85 10^6/uL Hemoglobin 13.1 11.5-16.0 G/DL Hematocrit 40 35-52 % Mean Corpuscular Volume 83 80-99 FL Mean Corpuscular Hemoglobin 27 25-34 PG Mean Corpuscular Hemoglobin Concent 33 32-36 G/DL Red Cell Distribution Width 15.0 H 10.0-14.5 % Platelet Count 310 130-400 10^3/uL Mean Platelet Volume 9.9 7.4-10.4 FL Neutrophils (%) (Auto) 65 42-75 % Lymphocytes (%) (Auto) 22 12-44 % Monocytes (%) (Auto) 9 0-12 % Eosinophils (%) (Auto) 4 0-10 % Basophils (%) (Auto) 0 0-10 % Neutrophils # (Auto) 11.2 H 1.8-7.8 X 10^3 Lymphocytes # (Auto) 3.7 1.0-4.0 X 10^3 Monocytes # (Auto) 1.6 H 0.0-1.0 X 10^3 Eosinophils # (Auto) 0.6 H 0.0-0.3 10^3/uL Basophils # (Auto) 0.1 0.0-0.1 10^3/uL Neutrophils % (Manual) 63 % Lymphocytes % (Manual) 27 % Monocytes % (Manual) 5 % Eosinophils % (Manual) 5 % Basophils % (Manual) 0 % Band Neutrophils 0 % Anisocytosis SLIGHT Sodium Level 140 135-145 MMOL/L Potassium Level 3.8 3.6-5.0 MMOL/L Chloride Level 105 98-107 MMOL/L Carbon Dioxide Level 23 21-32 MMOL/L Anion Gap 12 5-14 MMOL/L Blood Urea Nitrogen 16 7-18 MG/DL Creatinine 1.06 0.60-1.30 MG/DL Estimat Glomerular Filtration Rate 59 BUN/Creatinine Ratio 15 Glucose Level 112 H 70-105 MG/DL Calcium Level 9.0 8.5-10.1 MG/DL Corrected Calcium 9.2 8.5-10.1 MG/DL Total Bilirubin 0.3 0.1-1.0 MG/DL Aspartate Amino Transf (AST/SGOT) 21 5-34 U/L Alanine Aminotransferase (ALT/SGPT) 27 0-55 U/L Alkaline Phosphatase 134 40-136 U/L C-Reactive Protein High Sensitivity 10.07 H 0.00-0.50 MG/DL Total Protein 7.0 6.4-8.2 GM/DL Albumin 3.8 3.2-4.5 GM/DL Micro Results Microbiology 09/05/19 Influenza Types A,B Antigen (ANGEL) - Final, Complete My Orders Orders - OLENA FORMAN MD Ua Culture If Indicated (09/05/19 00:15) Influenza A And B Antigens (09/05/19 00:15) Cbc With Automated Diff (09/05/19 00:42) Comprehensive Metabolic Panel (09/05/19 00:42) Hs C Reactive Protein (09/05/19 00:42) Drug Screen Stat (Urine) (09/05/19 00:42) Ed Iv/Invasive Line Start (09/05/19 00:42) Lactated Ringers (Lr 1000 Ml Iv Solution (09/05/19 00:42) Chest 1 View, Ap/Pa Only (09/05/19 00:42) Manual Differential (09/05/19 00:50) Ct Abdomen/Pelvis W (09/05/19 01:44) Iohexol Injection (Omnipaque 350 Mg/Ml 1 (09/05/19 02:15) Received Contrast (Hold Metformin- Contr (09/05/19 02:15) Ns (Ivpb) (Sodium Chloride 0.9% Ivpb Bag (09/05/19 02:15) Medications Given in ED Current Medications Medications Dose Ordered Sig/Gomez Route Start Time Stop Time Status Last Admin Dose Admin Iohexol 100 ml ONCE ONCE IV 09/05/19 02:15 09/05/19 02:16 DC 09/05/19 02:17 100 ML Lactated Ringer's 1,000 ml @ 0 mls/hr Q0M ONCE IV 09/05/19 00:42 09/05/19 00:43 DC 09/05/19 00:53 0 MLS/HR Sodium Chloride 100 ml ONCE ONCE IV 09/05/19 02:15 09/05/19 02:16 DC 09/05/19 02:17 80 ML Vital Signs/I&O 09/05/19 09/05/19 09/05/19 00:00 00:00 00:58 Temp 36.9 37.6 Pulse 102 89 Resp 20 16 B/P (MAP) 144/97 (113) 112/83 (93) Pulse Ox 96 99 O2 Delivery Room Air Room Air Room Air Capillary Refill : Less Than 3 Seconds Blood Pressure Mean: 113 Progress Note : Progress Note Seen and evaluated. Patient's talking softly and lying on her ernie bear. She was able to participate in the exam. I did talk with her about taking medicines only as directed and not overtaking medicines. She states that she would. IV, labs, UA, influenza screen, chest x-ray and LR 1 L bolus ordered. She was able to take all of her meds at home including her diclofenac and Robaxin. Monitor patient. CT abdomen pelvis ordered due to elevated white count and reported problems. Monitor patient. 0320: I did discuss the findings with the patient including the drug screen. She is unsure about how she could have methamphetamine in her drug screen that she will look into it. I did directly asked if she was injecting which may be the reason for her wounds and she stated she was not. States that she is overall better. Could just be viral illnesses going on. Discharged home with return precautions. Patient verbalize unders tanding instructions and agreement with plan. Patient had no diarrheal episodes while in the ED. Diagnostic Imaging Diagonstic Imaging: CT Plain Films/CT/US/NM/MRI: abdomen, pelvis Comments No acute findings Reviewed: [facility] Imp[facility] Primary Impression: Diarrhea Qualified Codes: R19.7 - Diarrhea, unspecified Additional Impression: Multiple wounds of skin Disposition: HOME, SELF-CARE Condition: Stable Departure-Patient Inst. Decision time for Depature: 03:28 Referrals: [facility] (PCP/Family) Primary Care Physician Patient Instructions: Cellulitis (Skin Infection), Adult (DC), Diarrhea in Adolescents and Adults Add. Discharge Instructions: All discharge instructions reviewed with patient and/or family. Voiced underst anding. Take medications as directed. Follow-up with your Dr. in 2-3 days for recheck and further evaluation. Return for worse pain, fever, vomiting, weakness, breathing problems or other concerns as needed. Scripts Doxycycline Hyclate (Doxycycline Hyclate) 100 Mg Tablet 100 MG PO BID, #20 TAB 0 Refills Prov: OLENA FORMAN MD 09/05/19 OLENA FORMAN MD Sep 05, 2019 00:49
[2019-09-05 00:58] VITALS: BP 112/83
[2019-09-05 01:03] LABS: BASOPHILS # (AUTO) 0.1 10^3/uL (0.0-0.1); BASOPHILS % (AUTO) 0 % (0-10); EOSINOPHILS # (AUTO) 0.6 10^3/uL (0.0-0.3); EOSINOPHILS % (AUTO) 4 % (0-10); HEMATOCRIT 40 % (35-52); HEMOGLOBIN 13.1 G/DL (11.5-16.0); LYMPHOCYTES # (AUTO) 3.7 X 10^3 (1.0-4.0); LYMPHOCYTES % (AUTO) 22 % (12-44); MEAN CORPUSCULAR HEMOGLOBIN 27 PG (25-34); MEAN CORPUSCULAR HGB CONC 33 G/DL (32-36); MEAN CORPUSCULAR VOLUME 83 FL (80-99); MEAN PLATELET VOLUME 9.9 FL (7.4-10.4); MONOCYTES # (AUTO) 1.6 X 10^3 (0.0-1.0); MONOCYTES % (AUTO) 9 % (0-12); NEUTROPHILS # (AUTO) 11.2 X 10^3 (1.8-7.8); NEUTROPHILS % (AUTO) 65 % (42-75); PLATELET COUNT 310 10^3/uL (130-400); WHITE BLOOD COUNT 17.2 10^3/uL (4.3-11.0)
[2019-09-05 01:19] LABS: BAND NEUTROPHILS 0 %; EOSINOPHILS % (MANUAL) 5 %; LYMPHOCYTES % (MANUAL) 27 %; MONOCYTES % (MANUAL) 5 %; NEUTROPHILS % (MANUAL) 63 %
[2019-09-05 01:20] LABS: ANISOCYTOSIS SLIGHT; BASOPHILS % (MANUAL) 0 %
[2019-09-05 01:26] LABS: ALBUMIN 3.8 GM/DL (3.2-4.5); BILIRUBIN,TOTAL 0.3 MG/DL (0.1-1.0); CREATININE SERUM 1.06 MG/DL (0.60-1.30); POTASSIUM 3.8 MMOL/L (3.6-5.0)
[2019-09-05 01:53] LABS: AMPHETAMINE SCREEN, URINE POSITIVE (NEGATIVE); BARBITURATE SCREEN URINE NEGATIVE (NEGATIVE); BENZODIAZEPINES SCREEN URINE NEGATIVE (NEGATIVE); CANNABINOID SCREEN, URINE NEGATIVE (NEGATIVE); COCAINE SCREEN URINE NEGATIVE (NEGATIVE); METHADONE STAT NEGATIVE (NEGATIVE); METHAMPHETAMINE SCREEN URINE S POSITIVE (NEGATIVE); OPIATE SCREEN URINE NEGATIVE (NEGATIVE); OXYCODONE STAT NEGATIVE (NEGATIVE); PROPOXYPHENE STAT NEGATIVE (NEGATIVE); TRICYCLIC ANTIDEPRESSANTS SCRE POSITIVE (NEGATIVE)
[2019-09-05] MEDS ORDERED: IOHEXOL 350 MG/ML 100 ML (OMNIPAQUE 350) VIAL IV ONE (02:15)
[2019-09-05] MEDS ORDERED: NS 100 ML (IVPB) BAG IV ONE (02:15)
[2019-09-05] MEDS ORDERED: HOLD METFORMIN - RECEIVED CONTRAST 20 ML VIAL IV SCH (02:15)
[2019-09-05] MEDS ORDERED: DOXY100T2 PO (03:29)
[2019-09-05 03:33] VITALS: BP 139/60
--- NOTE | 2019-09-05 05:49 | Diagnostic Imaging Report ---
EXAMINATION: Portable erect AP chest at 1:00 AM INDICATION: Flu and fever The heart size is within normal limits and stable when compared to 01/25/10. The small nodular density in the left midlung seen previously is again evident and no different. The lungs are generally clear. There is no sign of failure, pneumonia or pleural effusion. The mediastinum is not widened. The osseous structures are intact. IMPRESSION: 1. There is no evidence for an acute cardiopulmonary abnormality. 2. The stability of the nodular density in the left midlung over a roughly 10-year period would indicate that it is benign. 3. Reportedly, CT of the abdomen and pelvis is pending for further study. Dictated by: Dictated on workstation # [id number]
--- NOTE | 2019-09-05 06:43 | Diagnostic Imaging Report ---
PROCEDURE: CT abdomen and pelvis with contrast. TECHNIQUE: Multiple contiguous axial images were obtained through the abdomen and pelvis after administration of intravenous contrast. Auto Exposure Controls were utilized during the CT exam to meet ALARA standards for radiation dose reduction. INDICATION: Fever with nausea and vomiting, prior hysterectomy, cholecystectomy and appendectomy The previous CT abdomen/pelvis exam of 05/08/2014 failed to show any sign of an acute abnormality. On this study, the stomach is distended by fluid and particulate matter. There may also be an ingested medication tablet in the gastric antrum. There does not appear to be any mass obstructing the gastric outlet. The liver is prominent and of lower density than usually seen. This does suggest fatty metamorphosis. The spleen, pancreas, adrenals, kidneys, aorta and inferior vena cava are unremarkable for an acute abnormality. There is no pelvic mass or free fluid collection evident. The uterus, the appendix and the gallbladder are surgically absent. There is diverticulosis of the sigmoid and descending colon but there is no sign of acute diverticulitis. There is a small fat-containing inguinal hernia on the left. There is no incarceration or obstruction of bowel by the hernia. The bone windows show no evidence for a fracture or for destructive lesion. The lung bases are clear. IMPRESSION: 1. The stomach is filled with fluid and particulate matter. However, there is no evidence for mass at the gastric outlet. 2. There is no acute abnormality of the abdomen or pelvis noted otherwise. 3. The gallbladder, the uterus and the appendix are surgically absent. Dictated by: Dictated on workstation # [id number]
--- OUTSIDE RECORDS SUMMARY | 2019-09-06 16:41 | XMS REPORT | Clinical Summary ---
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 If you d o not see the information that you expected, contact [facility] Information Management department at [phone] for further assistan ce in locating additional records.[facility] Allergies Not on File Medications Not [...] PHYSICAL (COMPREHENSIVE) 2003 EXAM CERVICAL CANCER SCREENING 2006 INFLUENZA VACCINE 01/22/2019 Results Not on filefrom Last 3 Months Insurance Type Payer Benefit Subscriber ID Effective Phone Address Plan / Dates Group Medicare MEDICARE MEDICARE xxxxxxxxxx [id number] PART A AND resent B [id number] [place] ([place]) [place] [id number] 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
--- OUTSIDE RECORDS SUMMARY | 2019-09-06 16:50 | XMS REPORT | Continuity of Care Document ---
Author Organization Unknown Address Unknown Phone Unavailable Allergies Active Description Code Type Severity Reaction Onset Reported/Identified Relationship to Patient Clinical Status Yes ketorolac [id number] Drug Allergy Mild N/A 07/13/2009 Yes naproxen [id number] Drug Allergy Mild N/A 07/13/2009 Yes [place] Unknown N/A 08/16/2014 Yes ciprofloxacin [id number] Elvin g Allergy Unknown N/A 08/16/2014 Yes morphine [id number] Drug Allergy Unknown N/A 08/16/2014 Yes tramadol [id number] Drug Allergy Unknown N/A 08/16/2014 Yes amoxicillin [id number] Drug Aller gy Unknown N/A 05/06/2019 Yes pregabalin [id number] Drug Allerg y Unknown Anaphylaxis 05/06/2019 Yes hydrocodone [id number] Drug Aller gy Unknown Itching 05/07/2019 Medications [...] ABDOMINAL PAIN, EPIGASTRIC 08/16/2014 Ot 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0 AGE-RELATED OSTEOPOROSIS W/O CURRENT PAT 05/26/2019 MATT EL MD, Ot N18.3 CHRONIC KIDNEY DISEASE, STAGE 3 (MODERAT 05/26/2019 MATT EL MD, Ot S81.80 1A UNSPECIFIED OPEN WOUND, RIGHT LOWER LEG, 05/26/2019 MATT EL MD, Ot 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 05/26/2019 MATT [...] Z90.89 ACQUIRED ABSENCE OF OTHER ORGANS 06/10/2019 AIDA BARROS APRN Ot F43.10 POST-TRAUMATIC STRESS [...] LEG, 06/25/2019 MATT EL MD, Ot Z79.82 CARE HOME (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 OF ASPIRIN 06/25/2019 MATT EL [...] Ot Z90.89 ACQUIRED ABSENCE OF OTHER ORGANS 06/28/2019 HUMBERTO MARQUIS APRN Ot F17.210 NICOTINE DEPENDENCE, CIGARETTES, UNCOMPL 06/28/2019 HUMBERTO MARQUIS APRN Ot F41 .9 ANXIETY DISORDER, UNSPECIFIED 06/28/2019 HUMBERTO MARQUIS APRN Ot F43.10 POST-TRAUMATIC STRESS DISORDER, UNSPECIF 06/28/2019 HUMBERTO MARQUIS APRN, Ot G43.909 MIGRAINE, UNSP, NOT INTRACTABLE, WITHOUT 06/28/2019 HUMBERTO MARQUIS APRN Ot I10 ESSENTIAL (PRIMARY) HYPERTENSION 06/28/2019 HUMBERTO MARQUIS APRN Ot I48.91 UNSPECIFIED ATRIAL FIBRILLATION 06/28/2019 HUMBERTO MARQUIS APRN Ot J44 .9 CHRONIC OBSTRUCTIVE PULMONARY DISEASE, U 06/28/2019 HUMBERTO MARQUIS APRN Ot M25.531 PAIN IN RIGHT WRIST 06/28/2019 HUMBERTO MARQUIS APRN Ot S62.001A UNSP FRACTURE OF NAVICULAR BONE OF RIGHT 06/28/2019 HUMBERTO MARQUIS APRN Ot Z79.82 CARE HOME (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 OF ASPIRIN 06/28/2019 HUMBERTO MARQUIS APRN Ot Z85.41 PERSONAL HISTORY OF MALIGNANT NEOPLASM O 06/28/2019 HUMBERTO MARQUIS APRN Ot Z85.43 PERSONAL HISTORY OF MALIGNANT NEOPLASM O 06/28/2019 HUMBERTO MARQUIS APRN Ot Z87.39 PERSONAL HISTORY OF DISEASES OF THE MS S 06/28/2019 HUMBERTO MARQUIS APRN Ot Z88 .1 ALLERGY STATUS TO OTHER ANTIBIOTIC AGENT 06/28/2019 HUMBERTO MARQUIS APRN, Ot Z88 .5 ALLERGY STATUS TO NARCOTIC AGENT STATUS 06/28/2019 HUMBERTO MARQUIS APRN Ot Z88 .6 ALLERGY STATUS TO ANALGESIC AGENT STATUS 06/28/2019 HUMBERTO MARQUIS APRN Ot Z88 .8 ALLERGY STATUS TO OTH DRUG/MEDS/BIOL SUB 06/28/2019 HUMBERTO MARQUIS APRN Ot Z90.49 ACQUIRED ABSENCE OF OTHER SPECIFIED PART 06/28/2019 HUMBERTO MARQUIS APRN Ot Z90.710 ACQUIRED ABSENCE OF BOTH CERVIX AND UTER 06/28/2019 BENITEZ, HUMBERTO Deng APRN Ot Z90.89 ACQUIRED ABSENCE OF OTHER ORGANS 07/03/2019 HUMBERTO MARQUIS APRN Ot F17.210 NICOTINE DEPENDENCE, CIGARETTES, UNCOMPL 07/03/2019 HUMBERTO MARQUIS APRN Ot F41 .9 ANXIETY DISORDER, UNSPECIFIED 07/03/2019 HUMBERTO MARQUIS APRN Ot F43.10 POST-TRAUMATIC STRESS DISORDER, UNSPECIF 07/03/2019 HUMBERTO MARQUIS APRN Ot G43.909 MIGRAINE, UNSP, NOT INTRACTABLE, [...] RIGHT 07/03/2019 HUMBERTO MARQUIS APRN Ot Z79.82 CARE HOME (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 OF ASPIRIN 07/03/2019 HUMBERTO MARQUIS [...] Ot Z90.89 ACQUIRED ABSENCE OF OTHER ORGANS 07/17/2019 HUMBERTO MARQUIS APRN Ot F41 .9 ANXIETY DISORDER, UNSPECIFIED 07/17/2019 HUMBERTO MARQUIS APRN Ot F43 .9 REACTION TO SEVERE STRESS, UNSPECIFIED 07/17/2019 HUMBERTO MARQUIS APRN Ot G43.909 MIGRAINE, UNSP, NOT INTRACTABLE, WITHOUT 07/17/2019 HUMBERTO MARQUIS APRN Ot I10 ESSENTIAL (PRIMARY) HYPERTENSION 07/17/2019 HUMBERTO MARQUIS APRN Ot I48.91 UNSPECIFIED ATRIAL FIBRILLATION 07/17/2019 HUMBERTO MARQUIS APRN Ot J44 .9 CHRONIC OBSTRUCTIVE PULMONARY DISEASE, U 07/17/2019 HUMBERTO MARQUIS APRN Ot K02 .9 DENTAL CARIES, UNSPECIFIED 07/17/2019 HUMBERTO MARQUIS APRN Ot K08.89 OTHER SPECIFIED DISORDERS OF TEETH AND S 07/17/2019 HUMBERTO MARQUIS APRN Ot Z77.22 CNTCT W AND EXPSR TO ENVIRON TOBACCO SMO 07/17/2019 HUMBERTO MARQUIS APRN Ot 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 07/17/2019 HUMBERTO MARQUIS APRN Ot Z85.41 PERSONAL HISTORY OF MALIGNANT NEOPLASM O 07/17/2019 HUMBERTO MARQUIS APRN Ot Z85.43 PERSONAL HISTORY OF MALIGNANT NEOPLASM O 07/17/2019 HUMBERTO MARQUIS APRN Ot Z87.39 PERSONAL HISTORY OF DISEASES OF THE MS S 07/17/2019 HUMBERTO MARQUIS APRN Ot Z88 .1 ALLERGY STATUS TO OTHER ANTIBIOTIC AGENT 07/17/2019 HUMBERTO MARQUIS APRN Ot Z88 .5 ALLERGY STATUS TO NARCOTIC AGENT STATUS 07/17/2019 HUMBERTO MARQUIS APRN Ot Z88 .6 ALLERGY STATUS TO ANALGESIC AGENT STATUS 07/17/2019 HUMBERTO MARQUIS APRN Ot Z88 .8 ALLERGY STATUS TO OTH DRUG/MEDS/BIOL SUB 07/17/2019 HUMBERTO MARQUIS APRN Ot Z90.49 ACQUIRED ABSENCE OF OTHER SPECIFIED PART 07/17/2019 HUMBERTO MARQUIS APRN Ot Z90.710 ACQUIRED ABSENCE OF BOTH CERVIX AND UTER 07/17/2019 HUMBERTO MARQUIS EASEMENT WORKER Ot Z90.89 ACQUIRED ABSENCE OF OTHER ORGANS 08/08/[address] [facility], MARICRUZ K Ot F17.210 NICOTINE DEPENDENCE, CIGARETTES, UNCOMPL 08/08/2019 [place] DO, MARICRUZ K Ot F32.9 MAJOR DEPRESSIVE DISORDER, SINGLE EPISOD 08/08/[address] [facility], MARICRUZ K Ot F41.9 ANXIETY DISORDER, UNSPECIFIED 08/08/[address] [facility], MARICRUZ K Ot F43.10 POST-TRAUMATIC STRESS DISORDER, UNSPECIF 08/08/[address] [facility], MARICRUZ K Ot I10 ESSENTIAL (PRIMARY) HYPERTENSION 08/08/[address] [facility], MARICRUZ K Ot I25.2 OLD MYOCARDIAL INFARCTION 08/08/[address] [facility], MARICRUZ K Ot I48.91 UNSPECIFIED ATRIAL FIBRILLATION 08/08/[address] [facility], MARICRUZ K Ot J06.9 ACUTE UPPER RESPIRATORY INFECTION, UNSPE 08/08/[address] [facility], MARICRUZ K Ot L97.919 NON-PRS CHRONIC ULC UNSP PRT OF R LOW LE 08/08/[address] [facility], MARICRUZ K Ot M54.16 RADICULOPATHY, LUMBAR REGION 08/08/[address] [facility], MARICRUZ K Ot M54.5 LOW BACK PAIN 08/08/[address] 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, MARICRUZ K Ot Z88.0 ALLERGY STATUS TO PENICILLIN 08/08/[address] [facility], MARICRUZ K Ot Z88.1 ALLERGY STATUS TO OTHER ANTIBIOTIC AGENT 08/08/[address] [facility], MARICRUZ K Ot Z88.5 ALLERGY STATUS TO NARCOTIC AGENT STATUS 08/08/[address] [facility], MARICRUZ K Ot Z88.6 ALLERGY STATUS TO ANALGESIC AGENT STATUS 08/08/[address] [facility], MARICRUZ K Ot Z88.8 ALLERGY STATUS TO OTH DRUG/MEDS/BIOL SUB 08/17/2019 CEM SEGOVIA Ot L76.22 POSTPROC HEMORRHAGE OF SKIN, SUBCU FOLLO 08/18/2019 CEM SEGOVIA Ot L76.22 POSTPROC HEMORRHAGE OF SKIN, SUBCU FOLLO 08/22/2019 AIDA BARROS APRN Ot F43.10 POST-TRAUMATIC STRESS DISORDER, UNSPECIF 08/22/2019 AIDA BARROS APRN Ot G43.909 MIGRAINE, UNSP, NOT INTRACTABLE, WITHOUT 08/22/2019 AIDA BARROS APRN Ot L97.212 NON-PRESSURE CHRONIC ULCER OF RIGHT CALF 08/22/2019 AIDA BARROS APRN Ot N18.3 CHRONIC KIDNEY DISEASE, STAGE 3 (MODERAT 08/22/2019 DAVIDA SERRANO, CEM Quijano Ot L76.22 POSTPROC HEMORRHAGE OF SKIN, SUBCU FOLLO 08/25/2019 OLENA FORMAN MD Ot F17.210 NICOTINE DEPENDENCE, CIGARETTES, UNCOMPL 08/25/2019 OLENA FORMAN MD, Ot F32.9 MAJOR DEPRESSIVE DISORDER, SINGLE EPISOD 08/25/2019 OLENA FORMAN MD, Ot F41.9 ANXIETY DISORDER, UNSPECIFIED 08/25/2019 OLENA FORMAN MD, Ot F43.10 POST-TRAUMATIC STRESS DISORDER, UNSPECIF 08/25/2019 OLENA FORMAN MD, Ot I10 ESSENTIAL (PRIMARY) HYPERTENSION 08/25/2019 OLENA FORMAN MD, Ot I25.2 OLD MYOCARDIAL INFARCTION 08/25/2019 OLENA FORMAN MD, Ot J44.9 CHRONIC OBSTRUCTIVE PULMONARY DISEASE, U 08/25/2019 OLENA FORMAN MD, Ot K04.7 PERIAPICAL ABSCESS WITHOUT SINUS 08/25/2019 OELNA FORMAN MD, Ot K08.89 OTHER SPECIFIED DISORDERS OF TEETH AND S 08/25/2019 OLENA FORMAN MD, Ot 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 08/25/2019 OLENA FORMAN MD, Ot Z85.41 PERSONAL HISTORY OF MALIGNANT NEOPLASM O 08/25/2019 OLENA FORMAN MD, Ot Z85.42 PERSONAL HISTORY OF MALIGNANT NEOPLASM O 08/25/2019 OLENA FORMAN MD, Ot Z85.43 PERSONAL HISTORY OF MALIGNANT NEOPLASM O 08/25/2019 OLENA FORMAN MD, Ot Z88.0 ALLERGY STATUS TO PENICILLIN 08/25/2019 OLENA FORMAN MD, Ot Z88.1 ALLERGY STATUS TO OTHER ANTIBIOTIC AGENT 08/25/2019 OLENA FORMAN MD, Ot Z88.5 ALLERGY STATUS TO NARCOTIC AGENT STATUS 08/25/2019 OLENA FORMAN MD, Ot Z88.6 ALLERGY STATUS TO ANALGESIC AGENT STATUS 08/25/2019 DICKSON GUZMAN, OLENA Garcia Ot Z88.8 ALLERGY STATUS TO OTH DRUG/MEDS/BIOL SUB Procedures There is no data. Results Test [...] 09:45 Bacteria identification in wound by culture [id number] NRG FREE TEXT EXTERNAL ISOLATED FROM [...] Bacteria identification in isolate by anaerobe culture [id number] NRG Gram stain microscopy - 05/07/19 09:52 Gram stain microscopy GRAM POSITIVE BACILLI NRG Bacteria identification in wound by cult ure - 05/07/19 09:52 Bacteria identification in wound by culture NG NRG Fungus culture - 05/07/19 09:52 Complete urinalysis with reflex to cultu re - 08/08/19 20:57 Urine color determination YELLOW NRG Urine clarity determination CLEAR NR G Urine pH measurement by test strip 5.5 5-9 Specific gravity of urine by test strip 1.020 1.016-1.022 Urine protein assay by test strip, semi-quantitative NEGATIVE NEGATIVE Urine glucose detection by automated test strip NE GATIVE NEGATIVE Erythrocytes detection in urine sediment by light micr oscopy NEGATIVE NEGATIVE Urine ketones detection by automated test strip NE GATIVE NEGATIVE Urine nitrite detection by test strip NEGATIVE NEGATIVE Urine total bilirubin detection by test strip NEGA TIVE NEGATIVE Urine urobilinogen measurement by automated test strip (mass/volume) 0.2 mg/dL < = 1.0 Urine leukocyte esterase detection by dipstick NEG ATIVE NEGATIVE Automated urine sediment erythrocyte cou nt by microscopy (number/high power field) NONE NRG Automated urine sediment leukocyte count by microscopy (number/high power field) NONE NRG Bacteria detection in urine sediment by light microsco py TRACE NRG Crystals detection in urine sediment by light microsco py PRESENT NRG Casts detection in urine sediment by light microscopy NONE NRG Mucus detection in urine sediment by light microscopy SMALL NRG Complete urinalysis with reflex to culture NO NRG Amorphous sediment detection in urine sediment by ligh t microscopy FEW MCKENZIE URATES NRG Urine drug screening test - 08/08/19 20: 57 Urine phencyclidine detection by screening method POSITIVE NEGATIVE Urine benzodiazepines detection by screening method NEGATIVE NEGATIVE Urine cocaine detection NEGATIVE NEGATI VE Urine amphetamines detection by screening method N EGATIVE NEGATIVE Urine methamphetamine detection by screening method NEGATIVE NEGATIVE Urine cannabinoids detection by screening method N EGATIVE NEGATIVE Urine opiates detection by screening method NEGATI VE NEGATIVE Urine barbiturates detection NEGATIVE N EGATIVE Screening urine tricyclic antidepressants detection POSITIVE NEGATIVE Urine methadone detection by screening method NEGA TIVE NEGATIVE Urine oxycodone detection NEGATIVE NEGA TIVE Urine propoxyphene detection NEGATIVE N EGATIVE Influenza virus A and B antigen detectio n - 08/08/19 22:03 FLU RESULT NEGATIVE FOR INFLUENZA A AND B ANTIGENS BY IA NRG Complete urinalysis with reflex to cultu re - 09/05/19 00:10 Urine color determination YELLOW NRG Urine clarity determination CLEAR NR G Urine pH measurement by test strip 6.0 5-9 Specific gravity of urine by test strip 1.025 1.016-1.022 Urine protein assay by test strip, semi-quantitative NEGATIVE NEGATIVE Urine glucose detection by automated test strip NE GATIVE NEGATIVE Erythrocytes detection in urine sediment by light micr oscopy NEGATIVE NEGATIVE Urine ketones detection by automated test strip NE GATIVE NEGATIVE Urine nitrite detection by test strip NEGATIVE NEGATIVE Urine total bilirubin detection by test strip NEGA TIVE NEGATIVE Urine urobilinogen measurement by automated test strip (mass/volume) 0.2 mg/dL < = 1.0 Urine leukocyte esterase detection by dipstick NEG ATIVE NEGATIVE Automated urine sediment erythrocyte cou nt by microscopy (number/high power field) [HPF] NRG Automated urine sediment leukocyte count by microscopy (number/high power field) NONE NRG Bacteria detection in urine sediment by light microsco py TRACE NRG Squamous epithelial cells detection in u rine sediment by light microscopy 2-5 NRG Crystals detection in urine sediment by light microsco py NONE NRG Casts detection in urine sediment by light microscopy NONE NRG Mucus detection in urine sediment by light microscopy NEGATIVE NRG Complete urinalysis with reflex to culture NO NRG Urine drug screening test - 09/05/19 00: 10 Urine phencyclidine detection by screening method POSITIVE NEGATIVE Urine benzodiazepines detection by screening method NEGATIVE NEGATIVE Urine cocaine detection NEGATIVE NEGATI VE Urine amphetamines detection by screening method P OSITIVE NEGATIVE Urine methamphetamine detection by screening method POSITIVE NEGATIVE Urine cannabinoids detection by screening method N EGATIVE NEGATIVE Urine opiates detection by screening method NEGATI VE NEGATIVE Urine barbiturates detection NEGATIVE N EGATIVE Screening urine tricyclic antidepressants detection POSITIVE NEGATIVE Urine methadone detection by screening method NEGA TIVE NEGATIVE Urine oxycodone detection NEGATIVE NEGA TIVE Urine propoxyphene detection NEGATIVE N EGATIVE Influenza virus A and B antigen detectio n - 09/05/19 00:12 FLU RESULT NEGATIVE FOR INFLUENZA A AND B ANTIGENS BY IA NRG Complete blood count (CBC) with automate d white blood cell (WBC) differential - 09/05/19 00:50 Blood leukocytes automated count (number/volume) 17.2 10*3/uL 4.3-11.0 Blood erythrocytes automated count (number/volume) 4.79 10*6/uL 4.35-5.85 Venous blood hemoglobin measurement (mass/volume) 13.1 g/dL 11.5-16.0 Blood hematocrit (volume fraction) 40 % 35-52 Automated erythrocyte mean corpuscular volume 83 [ foz_us] 80-99 Automated erythrocyte mean corpuscular h emoglobin (mass per erythrocyte) 27 pg 25-34 Automated erythrocyte mean corpuscular h emoglobin concentration measurement (mass/volume) 33 g/dL 32-36 Automated erythrocyte distribution width ratio 15. 0 % 10.0- 14.5 Automated blood platelet count (count/volume) 310 10*3/uL 130-400 Automated blood platelet mean volume measurement 9.9 [foz_us] 7.4-10.4 Automated blood neutrophils/100 leukocytes 65 % 42-75 Automated blood lymphocytes/100 leukocytes 22 % 12-44 Blood monocytes/100 leukocytes 9 % 0-12 Automated blood eosinophils/100 leukocytes 4 % 0-10 Automated blood basophils/100 leukocytes 0 % 0-10 Blood neutrophils automated count (number/volume) 11.2 10*3 1.8-7.8 Blood lymphocytes automated count (number/volume) 3.7 10*3 1.0-4.0 Blood monocytes automated count (number/volume) 1. 6 10*3 0.0-1.0 Automated eosinophil count 0.6 10*3/uL 0 .0-0.3 Automated blood basophil count (count/volume) 0.1 10*3/uL 0.0-0.1 Manual absolute plasma cell count - 08/22 10/11 00:50 Blood monocytes/100 leukocytes 5 % NRG Manual blood segmented neutrophils/100 leukocytes 63 % NRG Blood band neutrophils/100 leukocytes 0 % NRG Manual blood lymphocytes/100 leukocytes 27 % NRG Manual eosinophils/100 leukocytes in nose 5 % NRG Manual blood basophils/100 leukocytes 0 % NRG Blood anisocytosis detection by light microscopy [facility] Comprehensive metabolic panel - 09/05/19 00:50 Serum or plasma sodium measurement (moles/volume) 140 mmol/L 135-145 Serum or plasma potassium measurement (moles/volume) 3.8 mmol/L 3.6-5.0 Serum or plasma chloride measurement (moles/volume) 105 mmol/L 98-107 Carbon dioxide 23 mmol/L 21-32 Serum or plasma anion gap determination (moles/volume) 12 mmol/L 5-14 Serum or plasma urea nitrogen measurement (mass/volume ) 16 mg/dL 7-18 Serum or plasma creatinine measurement (mass/volume) 1.06 mg/dL 0.60-1.30 Serum or plasma urea nitrogen/creatinine mass ratio 15 NRG Serum or plasma creatinine measurement w ith calculation of estimated glomerular filtration rate 59 NRG Serum or plasma glucose measurement (mass/volume) 112 mg/dL 70-105 Serum or plasma calcium measurement (mass/volume) 9.0 mg/dL 8.5-10.1 Serum or plasma total bilirubin measurement (mass/volu me) 0.3 mg/dL 0.1-1.0 Serum or plasma alkaline phosphatase leonardo surement (enzymatic activity/volume) 134 U/L 40-136 Serum or plasma aspartate aminotransfera se measurement (enzymatic activity/volume) 21 U/L 5-34 Serum or plasma alanine aminotransferase measurement (enzymatic activity/volume) 27 U/L 0-55 Serum or plasma protein measurement (mass/volume) 7.0 g/dL 6.4-8.2 Serum or plasma albumin measurement (mass/volume) 3.8 g/dL 3.2-4.5 CALCIUM CORRECTED 9.2 mg/dL 8.5-10.1 Serum or plasma C reactive protein measu rement (mass/volume) - 09/05/19 00:50 Serum or plasma C reactive protein measurement (mass/v olume) 10.07 mg/dL 0.00-0.50 Encounters ACCT No. Visit Date/Time Discharge Status Pt. Type Provider Facility Loc./Unit Complaint [id number] 07/08/2019 08:50:01 ACT Unknown Eduardo Hoskins MD [id number] 08/22/2019 01:35:00 02:20:00 DIS Outpatient OLENA FORMAN MD Via [facility] ER ABSCESS IN JAW [id number] 08/08/2019 20:44:00 23:30:00 DIS Emergency MARICRUZ GRAMAJO DO a [facility] ER BACK PAIN LEFT LEG WEAK NESS/NUMBNESS [id number] 07/26/2019 13:26:00 23:59:59 CLS Emergency CEM SEGOVIA [facility] ER INCISION OPENED UP/BLE EDING [id number] 07/17/2019 19:18:00 20:04:00 DIS Emergency HUMBERTO MARQUIS APRN [facility] ER MOUTH PAIN [id number] 06/28/2019 16:56:00 18:22:00 DIS Emergency HUMBERTO MARQUIS APRN [facility] ER FALL/R WRIST INJ/DENTAL INJ [id number] 05/07/2019 07:50:00 12:50:00 [facility] [id number] 05/06/2019 15:45:00 019 16:23:00 DIS Outpatient MATT EL MD [facility] PREOP RIGHT CALF WOUND [id number] 05/05/2019 10:16:00 019 23:59:59 CLS Outpatient AIDA BARROS APRN [facility] WOUNDCARE [id number] 05/08/2014 22:04:00 014 00:16:00 DIS Emergency MARICRUZ GRAMAJO DO a [facility] ER VOMITING [id number] 09/05/2019 00:43:00 Document Registration [id number] 08/22/2019 05:01:00 Document Registration [id number] 08/16/2014 15:49:00 Document Registration [id number] 08/16/2014 15:49:00 Document Registration [id number] 08/16/2014 15:18:00 Document Registration [id number] 06/25/2011 00:24:00 Document Registration
== END 2019-09-05 03:33 | disposition home or self-care (01) ==
LOC: EDUNIT# 23:54 → ER 23:56
DX: S81.801A Unspecified open wound, right lower leg, initial encounter (principal); S71.101A Unspecified open wound, right thigh, initial encounter; S21.201A Unspecified open wound of right back wall of thorax without penetration into thoracic cavity, initial encounter; R19.7 Diarrhea, unspecified; I10 Essential (primary) hypertension; I25.2 Old myocardial infarction; I25.10 Atherosclerotic heart disease of native coronary artery without angina pectoris; I48.91 Unspecified atrial fibrillation; I42.9 Cardiomyopathy, unspecified; F43.10 Post-traumatic stress disorder, unspecified; F32.9 Major depressive disorder, single episode, unspecified; F17.210 Nicotine dependence, cigarettes, uncomplicated; Z85.41 Personal history of malignant neoplasm of cervix uteri; Z85.43 Personal history of malignant neoplasm of ovary; Z85.42 Personal history of malignant neoplasm of other parts of uterus; Z88.5 Allergy status to narcotic agent; Z88.1 Allergy status to other antibiotic agents; Z88.6 Allergy status to analgesic agent; Z88.8 Allergy status to other drugs, medicaments and biological substances; Z91.030 Bee allergy status; Z79.82 Long term (current) use of aspirin
CPT/HCPCS: 36415; 71045; 74177; 80053; 80306; 81000; 85007; 85027; 86141; 87804

== ENCOUNTER 2019-10-05 02:15 | Emergency (ER) | payer MEDICARE, MEDICAID ==
[~2019-10-05 02:15] MED LIST changes: +ALBU2.5V4; +DICL1TAB53
--- OUTSIDE RECORDS SUMMARY | 2019-10-05 02:22 | XMS REPORT | Clinical Summary ---
Author Author [facility] Organization [facility] Address Unknown Phone Unavailable Care Team Providers Care Corporate Development Manager Name Role Phone No Pcp, Na PCP Unavailable Source Comments Some departments are not documenting in the electronic medical record. If you d o not see the information that you expected, contact Release of Information in [facility] [employer] Information Management department at [phone] for further assistan ce in locating additional records.[facility] Allergies Not on File Medications [...] ( - 01/31/1996 Tdap) HIV SCREENING 01/31/2000 HEPATITIS C SCREENING 2003 PHYSICAL (COMPREHENSIVE) 2003 EXAM CERVICAL CANCER SCREENING 2006 INFLUENZA VACCINE 01/23/2020 Results Not on filefrom Last 3 Months Insurance Type Payer Benefit Subscriber ID Effective Phone Address Plan / Dates Group Medicare MEDICARE MEDICARE xxxxxxxxxx [id number] PART A AND resent [id number] [place] (Home) [place] [id number] Advance Directives Patient Vasc Tech Explanation Type Date Recorded Advance Directive/DPOA
--- OUTSIDE RECORDS SUMMARY | 2019-10-05 02:22 | XMS REPORT | Clinical Summary ---
Author Author Amparo Sepulveda [place] Address Unknown Phone Unavailable Allergies, Adverse Reactions, [...] disease, Stage III (moderate) 585.3 Ac tive Eduarod Hoskins MD Chronic kidney disease, Stage III [...] Generic Name NDC Status Provider Patient Instruction PRAZOSIN 2 MG CAPSULE TAKE ONE (1) CAPSULE BY MOUTH AT BEDTIME. 202 0 PRAZOSIN HCL 42008587810 Active BERYL Donaldson Active ATENOLOL 100 MG TABLET TAKE ONE (1) TABLET BY MOUTH AT BEDTIME... 2 ATENOLOL 51355679749 Active BERYL Donaldson Active BUSPIRONE HCL 10 MG TABLET TAKE TWO (2) TABLETS TWICE DAILY NEEDED FOR ANXIETY BUSPIRONE HCL 88976146157 Active BERYL Donaldson Active SUMATRIPTAN SUCC 50 MG TABLET TAKE ONE TABLET BY MOUTH EVERY 2 HOURS NEEDED HEADACHES, MAY REPEAT IN 2 HOURS. *MAX DOSE 200MG IN 24 HOURS*. SUMATRIPTAN SUCCINATE 00428845772 Active BERYL Donaldson Active QUETIAPINE FUMARATE 50 MG TAB TAKE ONE (1) TABLET DAILY AT BEDTI ME. QUETIAPINE FUMARATE 19816405506 Active Kerry Dillon LPN Active OXYCODONE HCL 10 MG ORAL TABLET Taper off as directed over t he next 3 weeks. OXYCODONE HCL 08747765823 Active Eduardo Hoskins MD Active SAVELLA TITRATION PACK 12.5 & 25 & 50 MG ORAL Take as directed 2 MILNACIPRAN HCL 05473558092 No Longer Active Eduardo Hoskins MD Active NICOTINE 21 MG/24HR TRANSDERMAL PATCH 24 HOUR 1 patch for 24hrs change everyday. NICOTINE 24434369662 No Longer Active Eduardo Hoskins MD Active ONDANSETRON ODT 4 MG TABLET DISSOLVE 1 TABLET IN MOUTH EVERY 8 HOURS NEEDED FOR NAUSEA... ONDANSETRON 05054265832 Active BERYL Donaldson Active POTASSIUM CL ER 10 MEQ TABL TAKE ONE (1) TABLET BY ALBA TH THREE (3) TIMES A DAY... POTASSIUM CHLORIDE 01954937601 Active BERYL Donaldson Active HYDROXYZINE HCL 50 MG TABLET TAKE ONE (1) TABLET BY MO UT THREE (3) TIMES A DAY... HYDROXYZINE HCL 24912425705 Active Kerry Dillon LPN Active FUROSEMIDE 80 MG TABLET TAKE ONE (1) TABLET BY MOUTH DAILY... 03/13 FUROSEMIDE 48345519466 Active BERYL Donaldson Active AMITRIPTYLINE HCL 50 MG TAB TAKE TWO (2) TABLETS ONCE DAILY AT BEDTIME. AMITRIPTYLINE HCL 98359435394 Active BERYL Donaldson Active SAVELLA 50 MG ORAL TABLET 1 twice a day MILNACI PRAN HCL 77719966385 Active Eduardo Hoskins MD Active NICODERM CQ 14 MG/24HR TRANSDERMAL PATCH 24 HOUR Apply 1 daily and then decrease to 7mg patch NICOTINE 60383682905 No Mingo nik Active Eduardo Hoskins MD Active NICODERM CQ 7 MG/24HR TRANSDERMAL PATCH 24 HOUR Apply 1 daily after the 14 patch. NICOTINE 91219271469 No Longer Active Eduardo Hoskins MD Active BACLOFEN 20 MG ORAL TABLET Three times daily BA CLOFEN 75220285680 No Longer Active Eduardo Hoskins MD Active DURAGESIC-50 50 MCG/HR TRANSDERMAL PATCH 72 HOUR Apply every 72 hours FENTANYL 37303753054 No Longer Active Eduardo Hoskins MD Active PROVENTIL HFA 108 (90 BASE) MCG/ACT INHALATION AEROSOL SOLUTION 2 puffs four times a day as needed for cough or wheezing ALBU TEROL SULFATE 33109261751 Active Eduardo Hoskins MD Active CLONIDINE HCL 0.1 MG ORAL TABLET 2 at bedtime nightly and 1 in am if needed CLONIDINE HCL 79877050164 Active Eduardo Hoskins MD Active NARCAN 4 MG/0.1ML LIQD 1 spray in one nostril. May repeat dose every 2 to 3 minutes until patient is responsive or EMS arrives NALOXONE HCL 92723457956 Active Eduardo Hoskins MD Active OMEPRAZOLE 40 MG ORAL CAPSULE DELAYED RELEASE Twice a day OMEPRAZOLE 17466873652 Active BERYL Donaldson Active ZANTAC 150 MAXIMUM STRENGTH 150 MG ORAL TABLET Twice daily RANITIDINE HCL 30181603282 Active Eduardo Hoskins MD Active PROMETHAZINE HCL 25 MG ORAL TABLET 1 every 6 hours as needed 06/27 PROMETHAZINE HCL 92795321194 Active BERYL Donaldson ASPIRIN 325 MG ORAL TABLET four times a day ASPIR IN 26249454350 Active Luz Maria Nagel MA Active CLONAZEPAM 1 MG ORAL TABLET 2 at bedtime and as needed CLONAZEPAM 01986602377 No Longer Active Luz Maria Nagel MA Active IPRATROPIUM-ALBUTEROL 0.5-2.5 (3) MG/3ML INHALATION SOLUTION As Needed IPRATROPIUM-ALBUTEROL 26901492117 Active Luz Maria Nagel MA Active ATROVENT HFA AEROSOL SOLUTION As needed IPRATROPIUM BROMIDE HFA AERS 26184535746 Active Luz Maria Nagel MA Active ALBUTEROL SULFATE (2.5 MG/3ML) 0.083% INHALATION NEBUL IZATION SOLUTION As needed ALBUTEROL SULFATE 05459508635 Active Luz Maria Nagel MA Active DURAGESIC-50 50 MCG/HR TRANSDERMAL PATCH 72 HOUR Apply every 72 hours DURAGESIC-50 50 MCG/HR TRANSDERMAL PATCH 72 HOUR 47887 5 FENTANYL Inactive BACLOFEN 20 MG ORAL [...] 12.5 & 25 & 50 MG ORAL [place] LNACIPRAN HCL Inactive Advance Directives Directive Description [...] weight E&M 264 [lb_av] Weight Measure d Encounters Code Encounter Date Provider Facility CPT-88557 37097-Olh Vst-Est Level IV 10:32:04 AIRPLANE DISPATCH CLERK Jaleel Hoskins MD [facility] CPT-97542 48534-Miq Vst-Est Level IV 12:32:50 AIRPLANE DISPATCH CLERK Jaleel Hoskins MD [facility] CPT-83336 58723-Atq Vst-Est Level IV 17:12:13 C APOORVA STEPHEN [facility] CPT-21243 28594-Kja Vst-Est Level IV 15:03:07 CDT Jaleel Hoskins MD [facility] CPT-36393 86955-Xcv Vst-Est Level IV 15:42:59 CDT Jaleel Hoskins MD [facility] CPT-39967 12165-Kih Vst-Est Level IV 16:40:01 AIRPLANE DISPATCH CLERK Jaleel Hoskins MD [facility] CPT-42842 21368-Oee Vst-Est Level IV 16:53:46 AIRPLANE DISPATCH CLERK Jaleel Hoskins MD [facility] CPT-52217 75200-Eeq Vst-New Level III 14:31:53 AIRPLANE DISPATCH CLERK Eduardo Hoskins MD [facility] Procedures Code Procedure Name Date Entry Date Standard Desc ription [id number] (4274F 2P) Patient Reason Influenza immu nization not administered 10:32:04 AIRPLANE DISPATCH CLERK CPT-[id number] Initial Annual Wellness Exam 16:27:26 CS T
--- OUTSIDE RECORDS SUMMARY | 2019-10-05 02:23 | XMS REPORT | Clinical Summary ---
Author Author Amparo Sepulveda [place] Address Unknown Phone Unavailable Allergies, Adverse Reactions, [...] Index 40.0- 44.9, adult BMI 39-39.9 Refinement Edaurdo Hoskins MD Body Mass Index 40.0- 44.9, [...] Generic Name NDC Status Provider Patient Instruction BUSPIRONE HCL 10 MG TABLET TAKE TWO (2) TABLETS TWICE DAILY NEEDED FOR ANXIETY BUSPIRONE HCL 24419802687 Active BERYL Donaldson Active SUMATRIPTAN SUCC 50 MG TABLET TAKE ONE TABLET BY MOUTH EVERY 2 HOURS NEEDED HEADACHES, MAY REPEAT IN 2 HOURS. *MAX DOSE 200MG IN 24 HOURS*. SUMATRIPTAN SUCCINATE 37442526344 Active BERYL Donaldson Active QUETIAPINE FUMARATE 50 MG TAB TAKE ONE (1) TABLET DAILY AT BEDTI ME. QUETIAPINE FUMARATE 05332910929 Active Kerry Tabaresum MORTUARY BEAUTICIAN Active OXYCODONE HCL 10 MG ORAL TABLET Taper off as directed over t he next 3 weeks. OXYCODONE HCL 87818175272 Active Eduardo Hoskins MD Active SAVELLA TITRATION PACK 12.5 & 25 & 50 MG ORAL Take as directed 2 MILNACIPRAN HCL 10667749160 No Longer Active Eduardo Hoskins MD Active NICOTINE 21 MG/24HR TRANSDERMAL PATCH 24 HOUR 1 patch for 24hrs change everyday. NICOTINE 34893557389 No Longer Active Eduardo Hoskins MD Active ONDANSETRON ODT 4 MG TABLET DISSOLVE 1 TABLET IN MOUTH EVERY 8 HOURS NEEDED FOR NAUSEA... ONDANSETRON 17983457374 Active BERYL Donaldson Active PRAZOSIN 2 MG CAPSULE TAKE 1 CAPSULE BY MOUTH DAILY AT BEDTIME... 2 PRAZOSIN HCL 72331503029 Active BERYL Donaldson Active POTASSIUM CL ER 10 MEQ TABL TAKE ONE (1) TABLET BY ALBA TH THREE (3) TIMES A DAY... POTASSIUM CHLORIDE 53303394864 Active BERYL Donaldson Active HYDROXYZINE HCL 50 MG TABLET TAKE ONE (1) TABLET BY MO UTH THREE (3) TIMES A DAY... HYDROXYZINE HCL 31502122948 Active Kerry Tabaresum MORTUARY BEAUTICIAN Active FUROSEMIDE 80 MG TABLET TAKE ONE (1) TABLET BY MOUTH DAILY... 03/13 FUROSEMIDE 07050089925 Active BERYL Donaldson Active ATENOLOL 100 MG TABLET TAKE ONE (1) TABLET DAILY AT BEDTIME. 03/13 ATENOLOL 25026226037 Active BERYL Donaldson Active AMITRIPTYLINE HCL 50 MG TAB TAKE TWO (2) TABLETS ONCE DAILY AT BEDTIME. AMITRIPTYLINE HCL 24855080247 Active BERYL Donaldson Active SAVELLA 50 MG ORAL TABLET 1 twice a day MILNACI PRAN HCL 19911568518 Active Eduardo Hoskins MD Active NICODERM CQ 14 MG/24HR TRANSDERMAL PATCH 24 HOUR Apply 1 daily and then decrease to 7mg patch NICOTINE 66757888066 No Mingo nik Active Eduardo Hoskins MD Active NICODERM CQ 7 MG/24HR TRANSDERMAL PATCH 24 HOUR Apply 1 daily after the 14 patch. NICOTINE 99704097510 No Longer Active Eduardo Hoskins MD Active BACLOFEN 20 MG ORAL TABLET Three times daily BA CLOFEN 69977450090 No Longer Active Eduardo Hoskins MD Active DURAGESIC-50 50 MCG/HR TRANSDERMAL PATCH 72 HOUR Apply every 72 hours FENTANYL 66669555838 No Longer Active Eduardo Hoskins MD Active PROVENTIL HFA 108 (90 BASE) MCG/ACT INHALATION AEROSOL SOLUTION 2 puffs four times a day as needed for cough or wheezing ALBU TEROL SULFATE 70196937446 Active Eduardo Hoskins MD Active CLONIDINE HCL 0.1 MG ORAL TABLET 2 at bedtime nightly and 1 in am if needed CLONIDINE HCL 12062867245 Active Eduardo Hoskins MD Active NARCAN 4 MG/0.1ML LIQD 1 spray in one nostril. May repeat dose every 2 to 3 minutes until patient is responsive or EMS arrives NALOXONE HCL 83566328944 Active Eduardo Hoskins MD Active OMEPRAZOLE 40 MG ORAL CAPSULE DELAYED RELEASE Twice a day OMEPRAZOLE 17796512546 Active BERYL Donaldson Active ZANTAC 150 MAXIMUM STRENGTH 150 MG ORAL TABLET Twice daily RANITIDINE HCL 54974908513 Active Eduardo Hoskins MD Active PROMETHAZINE HCL 25 MG ORAL TABLET 1 every 6 hours as needed 06/27 PROMETHAZINE HCL 67784551863 Active BERYL Donaldson Activ e ASPIRIN 325 MG ORAL TABLET four times a day ASPIR IN 05629651716 Active Luz Maria Nagel MA Active CLONAZEPAM 1 MG ORAL TABLET 2 at bedtime and as needed CLONAZEPAM 60822736951 No Longer Active Luz Maria Nagel MA Active IPRATROPIUM-ALBUTEROL 0.5-2.5 (3) MG/3ML INHALATION SOLUTION As Needed IPRATROPIUM-ALBUTEROL 71667361077 Active Luz Maria Nagel MA Active ATROVENT HFA AEROSOL SOLUTION As needed IPRATROPIUM BROMIDE HFA AERS 58440061566 Active Luz Maria Nagel MA Active ALBUTEROL SULFATE (2.5 MG/3ML) 0.083% INHALATION NEBUL IZATION SOLUTION As needed ALBUTEROL SULFATE 42164880945 Active Luz Maria Nagel MA Active DURAGESIC-50 50 MCG/HR TRANSDERMAL PATCH 72 HOUR Apply every 72 hours DURAGESIC-50 50 MCG/HR TRANSDERMAL PATCH 72 HOUR 77394 5 FENTANYL Inactive BACLOFEN 20 MG ORAL [...] 12.5 & 25 & 50 MG ORAL [place] LNACIPRAN HCL Inactive Advance Directives Directive Description [...] d Encounters Code Encounter Date Provider Facility CPT-67433 21948-Cvf Vst-Est Level IV 10:32:04 ALMOND PAN FINISHER Jaleel Hoskins MD [facility] CPT-66205 18046-Zfo Vst-Est Level IV 12:32:50 ALMOND PAN FINISHER Jaleel Hoskins MD [facility] CPT-62457 37948-Kjk Vst-Est Level IV 17:12:13 C APOORVA Perez APRN-C [facility] CPT-46659 90310-Lih Vst-Est Level IV 15:03:07 CDT Jaleel Hoskins MD [facility] CPT-48819 96726-Fph Vst-Est Level IV 15:42:59 CDT Jaleel Hoskins MD [facility] CPT-87718 02975-Sct Vst-Est Level IV 16:40:01 ALMOND PAN FINISHER Jaleel Hoskins MD [facility] CPT-70282 98936-Zyd Vst-Est Level IV 16:53:46 ALMOND PAN FINISHER Jaleel Hoskins MD [facility] CPT-44877 69146-Ggo Vst-New Level III 14:31:53 ALMOND PAN FINISHER Eduardo Hoskins MD [facility] Procedures Code Procedure Name Date Entry Date Standard Desc ription [id number] (4274F 2P) Patient Reason Influenza immu nization not administered 10:32:04 ALMOND PAN FINISHER CPT-G0438 Initial Annual Wellness Exam 16:27:26 CS T
--- OUTSIDE RECORDS SUMMARY | 2019-10-05 02:23 | XMS REPORT | Clinical Summary ---
Author Author Amparo Sepulveda [place] Address Unknown Phone Unavailable Allergies, Adverse Reactions, [...] MOUTH AT BEDTIME. 202 0 PRAZOSIN HCL 08234786823 Active BERYL Donaldson Active ATENOLOL 100 MG TABLET TAKE ONE (1) TABLET BY MOUTH AT BEDTIME... 2 ATENOLOL 38709644382 Active BERYL Donaldson Active BUSPIRONE HCL 10 MG TABLET TAKE TWO (2) TABLETS TWICE DAILY NEEDED FOR ANXIETY BUSPIRONE HCL 73222987731 Active BERYL Donaldson Active SUMATRIPTAN SUCC 50 MG TABLET TAKE ONE TABLET BY MOUTH EVERY 2 HOURS NEEDED HEADACHES, MAY REPEAT IN 2 HOURS. *MAX DOSE 200MG IN 24 HOURS*. SUMATRIPTAN SUCCINATE 43439356960 Active BERYL Donaldson Active QUETIAPINE FUMARATE 50 MG TAB TAKE ONE (1) TABLET DAILY AT BEDTI ME. QUETIAPINE FUMARATE 32115724661 Active Kerry Dillon LPN Active OXYCODONE HCL 10 MG ORAL TABLET Taper off as directed over t he next 3 weeks. OXYCODONE HCL 99922472145 Active Eduardo Hoskins MD Active SAVELLA TITRATION PACK 12.5 & 25 & 50 MG ORAL Take as directed 2 MILNACIPRAN HCL 38435819084 No Longer Active Eduardo Hoskins MD Active NICOTINE 21 MG/24HR TRANSDERMAL PATCH 24 HOUR 1 patch for 24hrs change everyday. NICOTINE 02068984228 No Longer Active Eduardo Hoskins MD Active ONDANSETRON ODT 4 MG TABLET DISSOLVE 1 TABLET IN MOUTH EVERY 8 HOURS NEEDED FOR NAUSEA... ONDANSETRON 82016456074 Active BERYL Donaldson Active POTASSIUM CL ER 10 MEQ TABL TAKE ONE (1) TABLET BY ALBA TH THREE (3) TIMES A DAY... POTASSIUM CHLORIDE 44219082231 Active BERYL Donaldson Active HYDROXYZINE HCL 50 MG TABLET TAKE ONE (1) TABLET BY MO UT THREE (3) TIMES A DAY... HYDROXYZINE HCL 30360374600 Active Kerry Dillon LPN Active FUROSEMIDE 80 MG TABLET TAKE ONE (1) TABLET BY MOUTH DAILY... 03/13 FUROSEMIDE 09542883923 Active BERYL Donaldson Active AMITRIPTYLINE HCL 50 MG TAB TAKE TWO (2) TABLETS ONCE DAILY AT BEDTIME. AMITRIPTYLINE HCL 07218764934 Active BERYL Donaldson Active SAVELLA 50 MG ORAL TABLET 1 twice a day MILNACI PRAN HCL 28675547935 Active Eduardo Hoskins MD Active NICODERM CQ 14 MG/24HR TRANSDERMAL PATCH 24 HOUR Apply 1 daily and then decrease to 7mg patch NICOTINE 59493465927 No Mingo nik Active Eduardo Hoskins MD Active NICODERM CQ 7 MG/24HR TRANSDERMAL PATCH 24 HOUR Apply 1 daily after the 14 patch. NICOTINE 96929826475 No Longer Active Eduardo Hoskins MD Active BACLOFEN 20 MG ORAL TABLET Three times daily BA CLOFEN 34149042809 No Longer Active Eduardo Hoskins MD Active DURAGESIC-50 50 MCG/HR TRANSDERMAL PATCH 72 HOUR Apply every 72 hours FENTANYL 15037193181 No Longer Active Eduardo Hoskins MD Active PROVENTIL HFA 108 (90 BASE) MCG/ACT INHALATION AEROSOL SOLUTION 2 puffs four times a day as needed for cough or wheezing ALBU TEROL SULFATE 01940874325 Active Eduardo Hoskins MD Active CLONIDINE HCL 0.1 MG ORAL TABLET 2 at bedtime nightly and 1 in am if needed CLONIDINE HCL 71900777072 Active Eduardo Hoskins MD Active NARCAN 4 MG/0.1ML LIQD 1 spray in one nostril. May repeat dose every 2 to 3 minutes until patient is responsive or EMS arrives NALOXONE HCL 62230166095 Active Eduardo Hoskins MD Active OMEPRAZOLE 40 MG ORAL CAPSULE DELAYED RELEASE Twice a day OMEPRAZOLE 66832424512 Active BERYL Donaldson Active ZANTAC 150 MAXIMUM STRENGTH 150 MG ORAL TABLET Twice daily RANITIDINE HCL 13519182893 Active Eduardo Hoskins MD Active PROMETHAZINE HCL 25 MG ORAL TABLET 1 every 6 hours as needed 06/27 PROMETHAZINE HCL 05399673366 Active BERYL Donaldson ASPIRIN 325 MG ORAL TABLET four times a day ASPIR IN 73376718871 Active Luz Maria Nagel MA Active CLONAZEPAM 1 MG ORAL TABLET 2 at bedtime and as needed CLONAZEPAM 05990473911 No Longer Active Luz Maria Nagel MA Active IPRATROPIUM-ALBUTEROL 0.5-2.5 (3) MG/3ML INHALATION SOLUTION As Needed IPRATROPIUM-ALBUTEROL 92111889118 Active Luz Maria Nagel MA Active ATROVENT HFA AEROSOL SOLUTION As needed IPRATROPIUM BROMIDE HFA AERS 62223459857 Active Luz Maria Nagel MA Active ALBUTEROL SULFATE (2.5 MG/3ML) 0.083% INHALATION NEBUL IZATION SOLUTION As needed ALBUTEROL SULFATE 35363462653 Active Luz Maria Nagel MA Active DURAGESIC-50 50 MCG/HR TRANSDERMAL PATCH 72 HOUR Apply every 72 hours DURAGESIC-50 50 MCG/HR TRANSDERMAL PATCH 72 HOUR 66797 5 FENTANYL Inactive BACLOFEN 20 MG ORAL [...] 12.5 & 25 & 50 MG ORAL [place] LNACIPRAN HCL Inactive Advance Directives Directive Description [...] d Encounters Code Encounter Date Provider Facility CPT-35458 32531-Pql Vst-Est Level IV 10:32:04 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 Jaleel Hoskins MD [facility] CPT-66686 42575-Wij Vst-Est Level IV 12:32:50 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 WET PROCESS Jaleel Hoskins MD [facility] CPT-31388 36860-Jbi Vst-Est Level IV 17:12:13 C APOORVA STEPHEN [facility] CPT-46150 10714-Wna Vst-Est Level IV 15:03:07 CDT Jaleel Hoskins MD [facility] CPT-08298 59005-Nna Vst-Est Level IV 15:42:59 CDT Jaleel Hoskins MD [facility] CPT-06369 56778-Ben Vst-Est Level IV 16:40:01 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 WET PROCESS Jaleel Hoskins MD [facility] CPT-28190 97982-Wmy Vst-Est Level IV 16:53:46 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 WET PROCESS Jaleel Hoskins MD [facility] CPT-28051 57052-Wyh Vst-New Level III 14:31:53 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 WET PROCESS Eduardo Hoskins MD [facility] Procedures Code Procedure Name Date Entry Date Standard Desc ription [id number] (4274F 2P) Patient Reason Influenza immu nization not administered 10:32:04 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 WET PROCESS CPT-G0438 Initial Annual Wellness Exam 16:27:26 CS T
--- OUTSIDE RECORDS SUMMARY | 2019-10-05 02:31 | XMS REPORT ---
Author Author [facility] Address Unknown Phone Unavailable Allergies No Known Allergy Information Encounters Program Name Primary Diagnosis Admission Date/Time Discharge Date/Time Family Preservation SatAug 26 10:42:00 EST 2019 Immunizations No Known Immunizations Lab Results No Known Laboratory Results Medical Equipment No Known Medical Equipment Medications No Known Medication Information Treatment Plan No Treatment Plan Information Problems No Known Problems Procedures No Known Procedures Social History Social History Observation Description Date Sex Female SatJan 30 00:00:00 EDT 1984 Vital Signs No Known Vitals
--- OUTSIDE RECORDS SUMMARY | 2019-10-05 02:31 | XMS REPORT | Continuity of Care Document ---
Author Organization Unknown Address Unknown Phone Unavailable Allergies Active Description Code Type Severity Reaction Onset Reported/Identified Relationship to Patient Clinical Status Yes ketorolac [id number] Drug Allergy Mild N/A 07/13/2009 Yes naproxen [id number] Drug Allergy Mild N/A 07/13/2009 Yes BEES BEES Unknown N/A 08/16/2014 Yes ciprofloxacin [id number] Elvin g Allergy Unknown N/A 08/16/2014 Yes morphine [id number] Drug Allergy Unknown N/A 08/16/2014 Yes tramadol [id number] Drug Allergy Unknown N/A 08/16/2014 Yes amoxicillin [id number] Drug Aller gy Unknown N/A 05/06/2019 Yes pregabalin [id number] Drug Allerg y Unknown Anaphylaxis 05/06/2019 Yes hydrocodone [id number] Drug Aller gy Unknown Itching 05/07/2019 Medications [...] ABDOMINAL PAIN, EPIGASTRIC 08/16/2014 Ot 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 08/16/2014 Ot 401.9 HYPE RTENSION [...] Hoskins MD Z00.0 0 Wellness exam 07/04/2018 Eudardo Hoskins MD F17.2 00 Tobacco Use: Current Smoker-Nicotine dependence, unspecified, uncomplicated 07/15/2018 Eduardo Hoskins MD R10.3 1 Abdominal pain, right lower quadrant 08/04/2018 Eduardo Hoskins MD M54.5 Low back pain 08/11/2018 Edaurdo Hoskins MD F11.2 0 Opioid dependence 08/11/2018 [...] LEG, 05/07/2019 MATT EL MD, Ot Z79.82 CAMPUS RECRUITING COORDINATOR (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 OF ASPIRIN 05/07/2019 MATT EL [...] Hoskins MD Z68.3 9 BMI 39-39.9 05/13/2019 dEuardo Hoskins MD Z23 Influenza Vaccination for Prophylaxis 05/19/2019 AIDA BARROS APRN Ot F43.10 POST-TRAUMATIC STRESS DISORDER, UNSPECIF 05/19/2019 AIDA BARROS PILE DRIVER ENGINEER Ot G43.909 MIGRAINE, UNSP, NOT INTRACTABLE, WITHOUT 05/19/2019 AIDA BARROS APRN Ot L97.212 NON-PRESSURE CHRONIC ULCER OF RIGHT CALF 05/19/2019 AIDA BARROS APRN Ot N18.3 CHRONIC KIDNEY DISEASE, STAGE 3 (MODERAT 05/21/2019 AIDA BARROS APRN Ot F43.10 POST-TRAUMATIC STRESS DISORDER, UNSPECIF 05/21/2019 AIDA BARROS PILE DRIVER ENGINEER Ot G43.909 MIGRAINE, UNSP, NOT INTRACTABLE, WITHOUT 05/21/2019 AIDA BARROS APRN Ot L97.212 NON-PRESSURE CHRONIC ULCER OF RIGHT CALF 05/21/2019 AIDA BARROS APRN Ot N18.3 CHRONIC KIDNEY DISEASE, STAGE 3 (MODERAT 05/26/2019 MATT EL MD, Ot F17.21 0 NICOTINE DEPENDENCE, CIGARETTES, UNCOMPL 05/26/2019 MATT EL MD, Ot F32.9 MAJOR DEPRESSIVE [...] LEG, 05/26/2019 MATT EL MD, Ot Z79.82 CAMPUS RECRUITING COORDINATOR (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 OF ASPIRIN 05/26/2019 MATT EL [...] LEG, 06/25/2019 MATT EL MD, Ot Z79.82 CAMPUS RECRUITING COORDINATOR (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 OF ASPIRIN 06/25/2019 MATT EL [...] I48.91 UNSPECIFIED ATRIAL FIBRILLATION 06/28/2019 HUMBERTO MARQUIS APRN, Ot J44 .9 CHRONIC OBSTRUCTIVE PULMONARY DISEASE, U 06/28/2019 HUMBERTO MARQUIS APRN Ot M25.531 PAIN IN RIGHT WRIST 06/28/2019 HUMBERTO MARQUIS APRN Ot S62.001A UNSP FRACTURE OF NAVICULAR BONE OF RIGHT 06/28/2019 HUMBERTO MARQUIS APRN Ot Z79.82 LONGTERM (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 OF ASPIRIN 06/28/2019 HUMBERTO MARQUIS APRN Ot Z85.41 PERSONAL HISTORY OF MALIGNANT NEOPLASM O 06/28/2019 HUMBERTO MARQUIS APRN Ot Z85.43 PERSONAL HISTORY OF MALIGNANT NEOPLASM O 06/28/2019 HUMBERTO MARQUIS APRN Ot Z87.39 PERSONAL HISTORY OF DISEASES OF THE MS S 06/28/2019 HUMBERTO MARQUIS APRN Ot Z88 .1 ALLERGY STATUS TO OTHER ANTIBIOTIC AGENT 06/28/2019 HUMBERTO MARQUIS APRN Ot Z88 .5 ALLERGY [...] ABSENCE OF BOTH CERVIX AND UTER 06/28/2019 HUMBERTO MARQUIS APRN Ot Z90.89 ACQUIRED ABSENCE [...] Ot I48.91 UNSPECIFIED ATRIAL FIBRILLATION 07/03/2019 HUMBERTO MARQIUS APRN Ot J44 .9 CHRONIC OBSTRUCTIVE PULMONARY DISEASE, U 07/03/2019 HUMBERTO MARQUIS APRN Ot M25.531 PAIN IN RIGHT WRIST 07/03/2019 HUMBERTO MARQUIS APRN Ot S62.001A UNSP FRACTURE OF NAVICULAR BONE OF RIGHT 07/03/2019 HUMBERTO MARQUIS APRN Ot Z79.82 LONGTERM (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 OF ASPIRIN 07/03/2019 HUMBERTO MARQUIS [...] SMO 07/17/2019 HUMBERTO MARQUIS APRN Ot Z79.82 CAMPUS RECRUITING COORDINATOR (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 OF ASPIRIN 07/17/2019 HUMBERTO MARQUIS [...] BOTH CERVIX AND UTER 07/17/2019 HUMBERTO MARQUIS PILE DRIVER ENGINEER Ot Z90.89 ACQUIRED ABSENCE OF OTHER ORGANS 08/08/2019 [facility], MARICRUZ K Ot F17.210 NICOTINE DEPENDENCE, CIGARETTES, UNCOMPL 08/08/2019 [place] DO, MARICRUZ K Ot F32.9 MAJOR DEPRESSIVE DISORDER, SINGLE EPISOD 08/08/2019 [facility], MARICRUZ K Ot F41.9 ANXIETY DISORDER, UNSPECIFIED 08/08/2019 [facility], MARICRUZ K Ot F43.10 POST-TRAUMATIC STRESS DISORDER, UNSPECIF 08/08/2019 [facility], MARICRUZ K Ot I10 ESSENTIAL (PRIMARY) HYPERTENSION 08/08/2019 [facility], MARICRUZ K Ot I25.2 OLD MYOCARDIAL INFARCTION 08/08/2019 [facility], MARICRUZ K Ot I48.91 UNSPECIFIED ATRIAL FIBRILLATION 08/08/2019 [facility], MARICRUZ K Ot J06.9 ACUTE UPPER RESPIRATORY INFECTION, UNSPE 08/08/2019 [facility], MARICRUZ K Ot L97.919 NON-PRS CHRONIC ULC UNSP PRT OF R LOW LE 08/08/2019 [facility], MARICRUZ K Ot M54.16 RADICULOPATHY, LUMBAR REGION 08/08/2019 [facility], MARICRUZ K Ot M54.5 LOW BACK PAIN 08/08/2019 [facility], MARICRUZ K Ot Z79.82 LONGTERM (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 OF ASPIRIN 08/08/2019 [facility], MARICRUZ K Ot Z88.0 ALLERGY STATUS TO PENICILLIN 08/08/2019 [facility], MARICRUZ K Ot Z88.1 ALLERGY STATUS TO OTHER ANTIBIOTIC AGENT 08/08/2019 [facility], MARICRUZ K Ot Z88.5 ALLERGY STATUS TO NARCOTIC AGENT STATUS 08/08/2019 [facility], MARICRUZ K Ot Z88.6 ALLERGY STATUS TO ANALGESIC AGENT STATUS 08/08/2019 [facility], MARICRUZ K Ot Z88.8 ALLERGY STATUS [...] CHRONIC KIDNEY DISEASE, STAGE 3 (MODERAT 08/22/2019 CEM SEGOVIA Ot L76.22 POSTPROC HEMORRHAGE OF SKIN, SUBCU FOLLO 08/25/2019 OLENA FORMAN MD Ot F17.210 NICOTINE DEPENDENCE, CIGARETTES, UNCOMPL 08/25/2019 OLENA FORMAN MD, Ot F32.9 MAJOR DEPRESSIVE DISORDER, SINGLE EPISOD 08/25/2019 OLEAN FORMAN MD, Ot F41.9 ANXIETY DISORDER, UNSPECIFIED 08/25/2019 OLENA FORMAN MD, Ot F43.10 POST-TRAUMATIC STRESS DISORDER, UNSPECIF 08/25/2019 OLENA FORMAN MD Ot I10 ESSENTIAL (PRIMARY) HYPERTENSION 08/25/2019 OLENA FORMAN MD, Ot I25.2 OLD MYOCARDIAL INFARCTION 08/25/2019 OLENA FORMAN MD, Ot J44.9 CHRONIC OBSTRUCTIVE PULMONARY DISEASE, U 08/25/2019 OLENA FORMAN MD, Ot K04.7 PERIAPICAL ABSCESS WITHOUT SINUS 08/25/2019 OLENA FORMAN MD, Ot K08.89 OTHER SPECIFIED DISORDERS OF TEETH AND S 08/25/2019 OLENA FORMAN MD Ot Z79.82 CAMPUS RECRUITING COORDINATOR (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 OF ASPIRIN 08/25/2019 OLENA FORMAN [...] ALLERGY STATUS TO NARCOTIC AGENT STATUS 08/25/2019 [place] MD, OLENA D Ot Z88.6 ALLERGY STATUS TO ANALGESIC AGENT STATUS 08/25/2019 OLENA FORMAN MD Ot Z88.8 ALLERGY STATUS TO OTH DRUG/MEDS/BIOL SUB 09/08/2019 Ot F17.210 NI COTINE DEPENDENCE, CIGARETTES, UNCOMPL 09/08/2019 Ot F32.9 ARIELLA R DEPRESSIVE DISORDER, SINGLE EPISOD 09/08/2019 Ot F43.10 POS T-TRAUMATIC STRESS DISORDER, UNSPECIF 09/08/2019 Ot I10 ESSENT IAL (PRIMARY) HYPERTENSION 09/08/2019 Ot I25.10 ATH SCL HEART DISEASE OF [place] CORONARY 09/08/2019 Ot I25.2 OLD MYOCARDIAL INFARCTION 09/08/2019 Ot I42.9 CARD IOMYOPATHY, UNSPECIFIED 09/08/2019 Ot I48.91 UNS PECIFIED ATRIAL FIBRILLATION 09/08/2019 Ot R19.7 DIAR RASHARD, UNSPECIFIED 09/08/2019 Ot R50.9 FEVE R, UNSPECIFIED 09/08/2019 Ot S21.201A U NSP OPN WND R BK WL OF THORAX W/O PENET 09/08/2019 Ot S71.101A U NSPECIFIED OPEN WOUND, RIGHT THIGH, INI 09/08/2019 Ot S81.801A U NSPECIFIED OPEN WOUND, RIGHT LOWER LEG, 09/08/2019 Ot Z79.82 GERRY G TERM (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 OF ASPIRIN 09/08/2019 Ot Z85.41 PER JESSE HISTORY OF MALIGNANT NEOPLASM O 09/08/2019 Ot Z85.42 PER JESSE HISTORY OF MALIGNANT NEOPLASM O 09/08/2019 Ot Z85.43 PER JESSE HISTORY OF MALIGNANT NEOPLASM O 09/08/2019 Ot Z88.1 RAFIQ RGY STATUS TO OTHER ANTIBIOTIC AGENT 09/08/2019 Ot Z88.5 RAFIQ RGY STATUS TO NARCOTIC AGENT STATUS 09/08/2019 Ot Z88.6 RAFIQ RGY STATUS TO ANALGESIC AGENT STATUS 09/08/2019 Ot Z88.8 RAFIQ RGY STATUS TO OTH DRUG/MEDS/BIOL SUB 09/08/2019 Ot Z91.030 BE E ALLERGY STATUS 09/15/2019 Ot F17.210 NI COTINE DEPENDENCE, CIGARETTES, UNCOMPL 09/15/2019 Ot F32.9 ARIELLA R DEPRESSIVE DISORDER, SINGLE EPISOD 09/15/2019 Ot F43.10 POS T-TRAUMATIC STRESS DISORDER, UNSPECIF 09/15/2019 Ot I10 ESSENT IAL (PRIMARY) HYPERTENSION 09/15/2019 Ot I25.10 ATH SCL HEART DISEASE OF [place] CORONARY 09/15/2019 Ot I25.2 OLD MYOCARDIAL INFARCTION 09/15/2019 Ot I42.9 CARD IOMYOPATHY, UNSPECIFIED 09/15/2019 Ot I48.91 UNS PECIFIED ATRIAL FIBRILLATION 09/15/2019 Ot R19.7 DIAR RASHARD, UNSPECIFIED 09/15/2019 Ot R50.9 FEVE R, UNSPECIFIED 09/15/2019 Ot S21.201A U NSP OPN WND R BK WL OF [place] W/O PENET 09/15/2019 Ot S71.101A U NSPECIFIED OPEN WOUND, RIGHT THIGH, INI 09/15/2019 Ot S81.801A U NSPECIFIED OPEN WOUND, RIGHT LOWER LEG, 09/15/2019 Ot Z79.82 GERRY G TERM (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 OF ASPIRIN 09/15/2019 Ot Z85.41 PER JESSE HISTORY OF MALIGNANT NEOPLASM O 09/15/2019 Ot Z85.42 PER JESSE HISTORY OF MALIGNANT NEOPLASM O 09/15/2019 Ot Z85.43 PER JESSE HISTORY OF MALIGNANT NEOPLASM O 09/15/2019 Ot Z88.1 RAFIQ RGY STATUS TO OTHER ANTIBIOTIC AGENT 09/15/2019 Ot Z88.5 RAFIQ RGY STATUS TO NARCOTIC AGENT STATUS 09/15/2019 Ot Z88.6 RAFIQ RGY STATUS TO ANALGESIC AGENT STATUS 09/15/2019 Ot Z88.8 RAFIQ RGY STATUS TO OTH DRUG/MEDS/BIOL SUB 09/15/2019 Ot Z91.030 BE E ALLERGY STATUS Procedures There is no data. Results Test [...] 09:45 Bacteria identification in wound by culture [id number] NRG FREE TEXT EXTERNAL ISOLATED FROM [...] Bacteria identification in isolate by anaerobe culture [id number] NRG Gram stain microscopy - 05/07/19 09:52 [...] anisocytosis detection by light microscopy S LIGHT NR Comprehensive metabolic panel - 09/05/19 00:50 Serum [...] Status Pt. Type Provider Facility Loc./Unit Complaint [id number] 09/18/2019 16:08:00 ACT Unknown Thomen MD, Eduardo [id number] 08/22/2019 01:35:00 02:20:00 DIS Outpatient OLENA FORMAN MD [facility] ER ABSCESS IN JAW [id number] 08/08/2019 20:44:00 23:30:00 DIS Emergency MARICRUZ GRAMAJO DO [facility] ER BACK PAIN LEFT LEG WEAK NESS/NUMBNESS [id number] 07/26/2019 13:26:00 23:59:59 CLS Emergency CEM SEGOVIA [facility] ER INCISION OPENED UP/BLE EDING [id number] 07/17/2019 19:18:00 20:04:00 DIS Emergency HUMBERTO MARQUIS APRN [facility] ER MOUTH PAIN [id number] 06/28/2019 16:56:00 18:22:00 DIS Emergency HUMBERTO MARQUIS APRN [facility] ER FALL/R WRIST INJ/DENTAL INJ [id number] 05/07/2019 07:50:00 12:50:00 DIS Outpatient MATT EL MD [facility] RIGHT CALF WOUND [id number] 05/06/2019 15:45:00 16:23:00 DIS Outpatient MATT EL MD [facility] PREOP RIGHT CALF WOUND [id number] 05/05/2019 10:16:00 23:59:59 CLS Outpatient AIDA BARROS APRN [facility] WOUNDCARE [id number] 05/08/2014 22:04:00 00:16:00 DIS Emergency MARICRUZ GRAMAJO DO [facility] ER VOMITING [id number] 09/05/2019 00:43:00 Document Registration [id number] 08/22/2019 05:01:00 Document Registration [id number] 08/16/2014 15:49:00 Document Registration [id number] 08/16/2014 15:49:00 Document Registration [id number] 08/16/2014 15:18:00 Document Registration [id number] 06/25/2011 00:24:00 Document Registration
[2019-10-05] MEDS ORDERED: CLINDAMYCIN 150 MG (CLEOCIN) CAP PO ONE (03:00)
[2019-10-05] MEDS ORDERED: CLIN300C11 PO (03:00)
[2019-10-05] MEDS ORDERED: LIDO20SO23 MM (03:00)
--- NOTE | 2019-10-05 03:00 | ED EENT ---
History of Present Illness General Chief Complaint: Dental Problems/Pain Stated Complaint: TOOTH PAIN Nursing Triage Note: TO ED VIA POV AND AMBULATORY TO ROOM 6 WITH C/O PAIN TO TOP RIGHT TOOTH AREA FOR 48 HOURS. STATES HAS TRIED ORAJEL, LIDOCAINE GAUZE, WARM, MOST HEAT, AND TYLENOL LAST TAKEN AT 1830. Source: patient History of Present Illness Date Seen by Provider: Oct 05, 2019 Time Seen by Provider: 02:40 Initial Comments PT ARRIVES VIA POV FROM HOME C/O DENTAL PAIN--RIGHT UPPER CANINE/LATERAL INCISOR AREA THIS IS CHRONIC PROBLEM FOR YEARS--CHRONIC DENTAL COMPLAINTS OF MULTIPLE TEETH STATES THIS TOOTH AREA HAS BEEN "REALLY BAD FOR AT LEAST A MONTH" AND GETTING WORSE OVER THE LAST 48 HOURS NO SWELLING TO FACE OR JAW NO FEVER NO PROBLEMS SWALLOWING STATES SHE HAS USED "LEFT OVER" "LIDOCAINE GAUZE", ORAJEL, MOTRIN AND ALEVE--WITHOUT RELIEF SYMPTOMS NO DIFFERENT ANN HAS NOT SOUGHT CARE UNTIL [place] HAS NOT SEEN A DENTIST FOR THIS PROBLEM PT HAS BEEN TO THIS ER MULTIPLE TIMES FOR THIS PROBLEM AND REPEATEDLY HAS BEEN INSTRUCTED TO SEE A DENTIST FOR FURTHER CARE, BUT SHE HAS NOT FOLLOWED UP ( PT GOES TO [facility]-FOR MEDICAL CARE) PT LATER STATES "SHE HAD AN APPOINTMENT, BUT THEY CANCELLED IT BECAUSE OF THE CORONAVIRUS"-STATES APPOINTMENT WAS AT [facility], BUT CANNOT STATE WHEN THAT APPOINTMENT WAS --NONETHELESS, PT HAS NOT SEEN A DENTIST AT ANY OTHER TIME FOR THIS CHRONIC COMPLAINT PT WITH MULTITUDE OF VISITS FOR VARIOUS OTHER COMPLAINTS WELL--MOST ARE PAIN RELATED COMPLAINTS 7 VISITS HERE IN 2019--LAST VISIT FOR DENTAL PAIN WAS 08/22/19 PCP: [facility] Allergies and Home Medications Allergies Coded Allergies: ketorolac (Unverified Allergy, Mild, 07/13/09) naproxen (Unverified Allergy, Mild, 07/13/09) amoxicillin (Verified Allergy, Unknown, 05/06/19) ciprofloxacin (Unverified Allergy, Unknown, 08/16/14) hydrocodone (Verified Allergy, Unknown, Itching, 05/07/19) N/V. morphine (Unverified Allergy, Unknown, 08/16/14) pregabalin (Verified Allergy, Unknown, Anaphylaxis, 05/06/19) tramadol (Unverified Allergy, Unknown, 08/16/14) Uncoded Allergies: BEES (Allergy, Unknown, 08/16/14) Home Medications Amitriptyline HCl 50 Mg Tablet, 50 MG PO HS, (Reported) Aspirin 81 Mg Tablet.dr, 81 MG PO DAILY, (Reported) Atenolol 100 Mg Tablet, 100 MG PO HS, (Reported) Buspirone HCl 10 Mg Tablet, 20 MG PO BID PRN for ANXIETY, (Reported) take 2 (10mg) tabs Cetirizine HCl 10 Mg Tablet, 10 MG PO DAILY, (Reported) Clindamycin HCl 300 Mg Capsule, 300 MG PO QID Prescribed by: MARICRUZ GRAMAJO on 10/05/19 0300 Clonidine HCl 0.1 Mg Tablet, 0.1-0.2 MG PO BID PRN for ANXIETY, (Reported) take 1 tab in am take 2 tab in pm if needed Doxycycline Hyclate 100 Mg Tablet, 100 MG PO BID Prescribed by: OLENA FORMAN on 09/05/19 0329 Furosemide 80 Mg Tablet, 80 MG PO DAILY, (Reported) Lidocaine HCl 15 Ml Solution, 1-2 ML MM [id number] Prescribed by: MARICRUZ GRAMAJO on 10/05/19 0300 Methocarbamol 750 Mg Tablet, 750 MG PO QID Prescribed by: MARICRUZ GRAMAJO on 08/08/19 2324 Omeprazole 40 Mg Capsule.dr, 40 MG PO BID, (Reported) Potassium Chloride 10 Meq Tablet.er, 10 MEQ PO TID, (Reported) Prazosin HCl 2 Mg Capsule, 2 MG PO HS, (Reported) Quetiapine Fumarate 50 Mg Tablet, 50 MG PO HS, (Reported) Ranitidine HCl 150 Mg Tablet, 150 MG PO BID, (Reported) Patient Home Medication List Home Medication List Reviewed: Yes Review of Systems Review of Systems Constitutional: no symptoms reported; No fever Ears: No Symptoms Reported Nose: no symptoms reported Mouth: see HPI, pain; denies swelling Throat: no symptoms reported Respiratory: no symptoms reported : No (HYST 2004) Neurological: No Symptoms Reported Hematologic/Lymphatic: No Symptoms Reported Immunological/Allergic: no symptoms reported Past Nyrastg-Klsfaf-Yrnzch Hx Past Med/Social Hx: Reviewed and Corrections made Patient Social History Alcohol Use: Denies Use Recreational Drug Use: Yes (UDS + FOR METH IN PAST) Smoking Status: Current Everyday Smoker (UP TO 4 PPD IN PAST, NOW 1 PPD) Type Used: Cigarettes 2nd Hand Smoke Exposure: Yes Recent Foreign Travel: No Contact w/Someone Who Travel: No Recent Infectious Disease Expo: No Recent Hopitalizations: No Physical Abuse: No Sexual Abuse: No Mistreated: No Fear: No Immunizations Up To Date Date of Pneumonia Vaccine: November 04, 2013 Date of Influenza Vaccine: Apr 07, 2014 Seasonal Allergies Seasonal Allergies: Yes Past Medical History Surgeries: Yes (R ANKLE , 5th metatarsal rt foot, L3-S21 laminectomy) Adenoidectomy, Appendectomy, Ear Surgery, Gallbladder, Hysterectomy, Orthopedic, Tonsillectomy Respiratory: Yes Asthma, COPD, Tuberculosis Currently Using CPAP: No Currently Using BIPAP: No Cardiac: Yes (tachycardia-SVT, mitral stenosis, MVP, long QT,CHF) Atrial Fibrillation, Cardiomyopathy, Coronary Artery Disease, Heart Attack, Heart Murmur, High Cholesterol, Hypertension Neurological: Yes Headaches /Migraines 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 Genitourinary: Yes Renal Failure Gastrointestinal: Yes Ulcer Musculoskeletal: Yes ("BRITTLE BONES", DEGENERATIVE JOINT DZ, SPINAL STENOSIS, LUMBAR LAMINECTOMY) Degenerate Disk Disease, Arthritis, Scoliosis, Chronic Back Pain Endocrine: Yes (MORBID OBESITY) Lupus HEENT: Yes (POOR DENTITION/CARIES) Cancer: Yes Cervical, Ovarian, Uterine Did You Recieve Any Treatments: Yes What Type of Treatment Did You: Surgical Intervention Psychosocial: Yes Anxiety, PTSD, Depression Integumentary: Yes (R calf wound;R upper thigh;L upper chest-necrotic tissue-ABSCESS/CELLULITIS) Blood Disorders: No Adverse Reaction/Blood Tranf: No Family Medical History No Pertinent Family Hx Physical Exam Vital Signs Vital Signs - First Documented 10/05/19 02:29 Temp 36.7 Pulse 77 Resp 16 B/P (MAP) 126/59 (81) O2 Delivery Room Air Height, Weight, BMI Height: 5'6" Weight: 200lbs. oz. [id number]; 43.00 BMI Method:Stated General Appearance: no apparent distress, obese, other (CONSTANT "SNIFFING", CONSTANT MOVEMENTS OF BODY. NO TEARS) Eyes: bilateral eye normal inspection, bilateral eye PERRL, bilateral eye EOMI Ears: bilateral ear other (BILATERAL TM'S SCLEROTIC) Nose: normal inspection Mouth/Throat: No mandibular swelling, No maxillary swelling, No trismus; other (EXTENSIVE DENTAL CARIES/POOR DENTITION AND POOR ORAL HYGIENE; RIGHT UPPER LATERAL INCISOR/CANINE TEETH WITH EXTENSIVE DECAY DOWN TO GUMS, WITH MILD LOCAL GINGIVAL INFLAMMATION. NO AREAS OF FLUCTUANCE. NO FACIAL SWELLING OR ERYTHEMA. 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 Referrals: [facility] (PCP/Family) Primary Care Physician Patient Instructions: Dental Pain (DC), Tooth Decay, Adult (DC) Add. Discharge Instructions: FREQUENT [place] SWISHES TO AREA TYLENOL NEEDED FOR PAIN FOLLOW UP WITH DENTIST FOR FURTHER CARE--CALL TODAY TO MAKE APPOINTMENT All discharge instructions reviewed with patient and/or family. Voiced understanding. Scripts Lidocaine HCl (Lidocaine HCl Viscous) 15 Ml Solution 1-2 ML MM [id number], #120 ML Prov: MARICRUZ GRAMAJO DO 10/05/19 Clindamycin HCl (Clindamycin HCl) 300 Mg Capsule 300 MG PO QID for 10 Days, #40 CAP Prov: MARICRUZ GRAMAJO DO 10/05/19 MARICRUZ GRAMAJO DO Oct 05, 2019 03:00
[2019-10-05 03:09] VITALS: BP 125/60
== END 2019-10-05 03:11 | disposition home or self-care (01) ==
LOC: EDUNIT# 02:15 → ER 02:17
DX: K02.9 Dental caries, unspecified (principal); F17.210 Nicotine dependence, cigarettes, uncomplicated; J44.9 Chronic obstructive pulmonary disease, unspecified; I48.91 Unspecified atrial fibrillation; I42.9 Cardiomyopathy, unspecified; I25.10 Atherosclerotic heart disease of native coronary artery without angina pectoris; E78.00 Pure hypercholesterolemia, unspecified; I10 Essential (primary) hypertension; E66.01 Morbid (severe) obesity due to excess calories; F41.9 Anxiety disorder, unspecified; F43.10 Post-traumatic stress disorder, unspecified; F32.9 Major depressive disorder, single episode, unspecified; I25.2 Old myocardial infarction; Z68.41 Body mass index [BMI] 40.0-44.9, adult; Z85.42 Personal history of malignant neoplasm of other parts of uterus
CPT/HCPCS: 99283

== ENCOUNTER → 2019-11-09 | Outpatient (CLI) | payer MEDICARE, MEDICAID ==
[~2019-11-09] MED LIST changes: +LIDO20SO23 MM
--- NOTE | 2019-11-09 09:12 | Diagnostic Imaging Report ---
CLINICAL INDICATION: Patient has history of lupus and cervical spine pain. EXAM: MRI of the cervical spine performed without IV contrast. Sequences include sagittal T1, sagittal T2, sagittal stir, and axial T2. COMPARISON: None. FINDINGS: Cervical spine has normal alignment with no fracture or dislocation. There is normal craniocervical and anterior atlanto-odontoid alignment. Cervical spinal cord has normal anatomic appearance with no abnormal cord signal. The pituitary gland is small in size measuring 3 mm with a cystic or fluid-filled area seen within the upper aspect of the sella. There is no paraspinal soft tissue abnormality. The cervical spine intervertebral disc heights are well-preserved. C1-C2: Unremarkable. C2-C3: There is mild left facet arthropathy. There is mild left neuroforaminal narrowing. There is no significant central canal or right neuroforaminal narrowing. C3-C4: There is mild left facet arthropathy. There is no significant central spinal canal or neuroforaminal narrowing. C4-C5: Unremarkable. C5-C6: There are small bilateral uncinate spurs, right side more than the left. There is moderate right neuroforaminal narrowing and mild left neuroforaminal narrowing. There is no significant central canal narrowing. C6-C7: Unremarkable. C7-T1: Unremarkable. IMPRESSION: 1. There is a small sized pituitary gland with a cystic or fluid-filled area within the upper aspect of the sella. MRI of the pituitary gland with and without contrast is suggested to further evaluate. 2. There are bilateral C5-C6 uncinate spurs, right side more than the left, which cause moderate right neuroforaminal narrowing and mild left neuroforaminal narrowing. 3. There is mild left C2-C3 facet arthropathy which causes mild left neuroforaminal narrowing. 4. There is no significant central canal stenosis. Dictated by: Dictated on workstation # [id number]
== END ==
LOC: RAD 08:03
PROVIDERS: ATTEND Nurse Practitioner Family
DX: M47.22 Other spondylosis with radiculopathy, cervical region (principal)
CPT/HCPCS: 72141

== ENCOUNTER → 2019-12-04 | Outpatient (CLI) | payer MEDICARE, MEDICAID ==
[~2019-12-04] MED LIST changes: +GADOBUTROL 15 MMOL/15 ML (GADAVIST) VIAL IV ONE
--- NOTE | 2019-12-04 17:20 | Diagnostic Imaging Report ---
CLINICAL INDICATION: Patient states she has cyst on her pituitary gland. Patient had recent MRI cervical spine. EXAM: MRI of the brain and pituitary using pituitary protocol performed without and with 11 mL of Gadavist IV gadolinium. Sequences include sagittal T1, axial flair, axial T1, axial DWI, axial ADC map, axial gradient echo, coronal T1 thin, coronal T1 fat sat thin, sagittal T1 thin, coronal T2 fat-sat thin, axial T1 post contrast whole brain, coronal dynamic post IV gadolinium through the sella, coronal T1 post IV gadolinium thin fat sat, and sagittal T1 post gadolinium thin. COMPARISON: MRI of the cervical spine without contrast dated 11/09/2019. FINDINGS: There is motion artifact which limits evaluation of some sequences. Improved visualization of the pituitary gland shows a pituitary gland measuring roughly 4 mm with superior convex border. This is better seen than was on the comparison MRI. Infundibulum is displaced posteriorly slightly displaced toward the left. The pituitary gland is more prominent on the left side than the right side. It is possible that an imperceptible, tiny arachnoid cyst may be present in the suprasellar region. The cavernous carotid arteries are patent. The visualized portions of optic nerves and optic chiasm are unremarkable. There is no hypoenhancing pituitary gland mass. Otherwise, there is no evidence of acute cerebral infarct, intracranial hemorrhage, or gross mass effect. The brain parenchymal volume appears appropriate for patient's age. There is normal santos-white matter distinction. There is no significant midline shift or herniation. The [place] of [place] vascular structures show no gross abnormality as visualized. There is no evidence of hydrocephalus. The basal cisterns are unremarkable. The skull, extracranial soft tissue, and orbits are unremarkable. The paranasal sinuses are unremarkable. Temporal bones show no significant abnormality. IMPRESSION: 1: Again seen concave superior border of the pituitary gland with the pituitary gland measuring 4 mm in craniocaudal dimension. Given the appearance of the pituitary gland and slight displacement of the infundibulum, it is possible that a small imperceptible arachnoid cyst may be present in the suprasellar region. Other consideration may include chronic CSF pulsations upon the upper aspect of the pituitary gland. If the patient has no hormonal abnormalities/pituitary dysfunction, then this may be an inconsequential finding. 2: Otherwise, unremarkable MRI of the brain. Dictated by: Dictated on workstation # [id number]
== END ==
LOC: RAD 15:31
PROVIDERS: ATTEND Nurse Practitioner Family
DX: E23.6 Other disorders of pituitary gland (principal)
CPT/HCPCS: 70553

== ENCOUNTER 2021-01-07 12:58 | Emergency (ER) | payer MEDICARE, MEDICAID ==
[~2021-01-07] VITALS: Ht 167 cm; Wt 100.0 kg
[~2021-01-07 12:58] MED LIST changes: -CETI10TA21 PO; +CETI10TA49 PO; -CLIN300C11 PO; +CLIN300C12 PO; +CLN.1T PO; -CLON0.1T PO; -GADOBUTROL 15 MMOL/15 ML (GADAVIST) VIAL IV ONE; -OMEP40CA27 PO; +OMEP40CA6 PO; +QUET50TA22 PO; -QUET50TA55 PO
[2021-01-07 13:59] LABS: BILIRUBIN,URINE NEGATIVE (NEGATIVE); CLARITY,URINE CLEAR; COLOR,URINE YELLOW; GLUCOSE, URINE (UA) NEGATIVE (NEGATIVE); KETONES,URINE NEGATIVE (NEGATIVE); LEUKOCYTE ESTERASE ,URINE NEGATIVE (NEGATIVE); NITRITE,URINE NEGATIVE (NEGATIVE); PROTEIN,URINE NEGATIVE (NEGATIVE)
--- NOTE | 2021-01-07 14:09 | ED Abdominal Pain ---
General Chief Complaint: Abdominal/GI Problems Stated Complaint: HEADACHE,NAUSEA,ABD PAIN,WHITES OF EYES YELLOW Nursing Triage Note: PT TO ED W/ C/O DIARRHEA, N/V ET WEIGHT LOSS X1 WK, WORSE TODAY. PT DENIES SEEING PCP FOR C/O. Source of Information: Patient Exam Limitations: No Limitations History of Present Illness Date Seen by Provider: Jan 07, 2021 Time Seen by Provider: 14:08 Initial Comments To ER with reports of diarrhea watery in nature. She believes her sclera are yellow. She is lost 20 pounds over the past week allegedly. No fevers or chills. Timing/Duration: 1-2 Days Severity/Quality: Moderate Radiation: No Radiation Activities at Onset: None Associated Symptoms: Denies Symptoms, Nausea/Vomiting Allergies and Home Medications Allergies Coded Allergies: ketorolac (Unverified Allergy, Mild, 07/13/09) naproxen (Unverified Allergy, Mild, 07/13/09) amoxicillin (Verified Allergy, Unknown, 05/06/19) ciprofloxacin (Unverified Allergy, Unknown, 08/16/14) hydrocodone (Verified Allergy, Unknown, Itching, 05/07/19) N/V. morphine (Unverified Allergy, Unknown, 08/16/14) pregabalin (Verified Allergy, Unknown, Anaphylaxis, 05/06/19) tramadol (Unverified Allergy, Unknown, 08/16/14) Uncoded Allergies: BEES (Allergy, Unknown, 08/16/14) Home Medications Amitriptyline HCl 50 Mg Tablet, 50 MG PO HS, (Reported) Aspirin 81 Mg Tablet.dr, 81 MG PO DAILY, (Reported) Atenolol 100 Mg Tablet, 100 MG PO HS, (Reported) Buspirone HCl 10 Mg Tablet, 20 MG PO BID PRN for ANXIETY, (Reported) take 2 (10mg) tabs Cetirizine HCl 10 Mg Tablet, 10 MG PO DAILY, (Reported) Clindamycin HCl 300 Mg Capsule, 300 MG PO QID Prescribed by: MARICRUZ GRAMAJO on 10/05/19 0300 Clonidine HCl 0.1 Mg Tablet, 0.1-0.2 MG PO BID PRN for ANXIETY, (Reported) take 1 tab in am take 2 tab in pm if needed Doxycycline Hyclate 100 Mg Tablet, 100 MG PO BID Prescribed by: OLENA FORMAN on 09/05/19 0329 Furosemide 80 Mg Tablet, 80 MG PO DAILY, (Reported) Lidocaine HCl 15 Ml Solution, 1-2 ML MM [id number] Prescribed by: MARICRUZ GRAMAJO on 10/05/19 0300 Methocarbamol 750 Mg Tablet, 750 MG PO QID Prescribed by: MARICRUZ GRAMAJO on 08/08/19 2324 Omeprazole 40 Mg Capsule.dr, 40 MG PO BID, (Reported) Potassium Chloride 10 Meq Tablet.er, 10 MEQ PO TID, (Reported) Prazosin HCl 2 Mg Capsule, 2 MG PO HS, (Reported) Promethazine HCl 25 Mg Tablet, 25 MG PO Q6H PRN for NAUSEA/VOMITING Prescribed by: HUMBERTO MARQUIS on 01/07/21 1526 Quetiapine Fumarate 50 Mg Tablet, 50 MG PO HS, (Reported) Ranitidine HCl 150 Mg Tablet, 150 MG PO BID, (Reported) Patient Home Medication List Home Medication List Reviewed: Yes Review of Systems Review of Systems Constitutional: see HPI, chills EENTM: No Symptoms Reported Respiratory: No Symptoms Reported Cardiovascular: No Symptoms Reported Gastrointestinal: See HPI, Abdominal Pain, Nausea Genitourinary: No Symptoms Reported Musculoskeletal: no symptoms reported Skin: no symptoms reported Psychiatric/Neurological: No Symptoms Reported Endocrine: No Symptoms Reported Hematologic/Lymphatic: No Symptoms Reported Past Vinakww-Scmsmv-Brvyej Hx Patient Social History Tobacco Use?: Yes Tobacco type used: Cigarettes Smoking Status: Current Everyday Smoker Smokeless Tobacco Frequency: Current Everyday User Use of E-Cig and/or Vaping dev: No Substance use?: No Alcohol Use?: No Pt feels they are or have been: No Seasonal Allergies Seasonal Allergies: Yes Past Medical History Surgery/Hospitalization HX: FREQUENT NECROTIC TISSUE REMOVAL, LUPUS, KIDNEY ET HEART FAILURE, HYSTERECTOMY, CHOLECYSTECTOMY, T&A, APPENDECTOMY, HYPERTENSION Surgeries: Yes (R ANKLE , 5th metatarsal rt foot, L3-S21 laminectomy) Adenoidectomy, Appendectomy, Ear Surgery, Gallbladder, Hysterectomy, Orthopedic, Tonsillectomy Respiratory: Yes Asthma, COPD, Tuberculosis Currently Using CPAP: No Currently Using BIPAP: No Cardiac: Yes (tachycardia-SVT, mitral stenosis, MVP, long QT,CHF) Atrial Fibrillation, Cardiomyopathy, Coronary Artery Disease, Heart Attack, Heart Murmur, High Cholesterol, Hypertension Neurological: Yes Headaches /Migraines 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 Genitourinary: Yes Renal Failure Gastrointestinal: Yes Ulcer Musculoskeletal: Yes ("BRITTLE BONES", DEGENERATIVE JOINT DZ, SPINAL STENOSIS, LUMBAR LAMINECTOMY) Degenerate Disk Disease, Arthritis, Scoliosis, Chronic Back Pain Endocrine: Yes (MORBID OBESITY) Lupus HEENT: Yes (POOR DENTITION/CARIES) Cancer: Yes Cervical, Ovarian, Uterine Did You Recieve Any Treatments: Yes What Type of Treatment Did You: Surgical Intervention Psychosocial: Yes Anxiety, PTSD, Depression Integumentary: Yes (R calf wound;R upper thigh;L upper chest-necrotic tissue- ABSCESS/CELLULITIS) Blood Disorders: No Adverse Reaction/Blood Tranf: No Family Medical History No Pertinent Family Hx Physical Exam Vital Signs Vital Signs - First Documented 01/07/21 13:28 Pulse 81 Resp 20 B/P (MAP) 117/85 (96) Pulse Ox 98 O2 Delivery Room Air Capillary Refill : Less Than 3 Seconds Height/Weight/BMI Height: 5'6" Weight: 200lbs. oz. 90.111622gx; 35.00 BMI Method:Stated General Appearance: WD/WN, no apparent distress, obese HEENT: PERRL/EOMI, normal ENT inspection Neck: non-tender, full range of motion Respiratory: no respiratory distress, no accessory muscle use Gastrointestinal: normal bowel sounds, non tender, soft Extremities: normal range of motion, non-tender Neurologic/Psychiatric: alert, normal mood/affect, oriented x 3 Skin: normal color, warm/dry Progress/Results/Core Measures Results/Orders Lab Results Laboratory Tests Test 01/07/21 13:50 01/07/21 14:01 Range/Units Urine Color YELLOW Urine Clarity CLEAR Urine pH 5.0 5-9 Urine Specific Landers 1.015 L 1.016-1.022 Urine Protein NEGATIVE NEGATIVE Urine Glucose (UA) NEGATIVE NEGATIVE Urine Ketones NEGATIVE NEGATIVE Urine Nitrite NEGATIVE NEGATIVE Urine Bilirubin NEGATIVE NEGATIVE Urine Urobilinogen 0.2 < = 1.0 MG/DL Urine Leukocyte Esterase NEGATIVE NEGATIVE Urine RBC (Auto) NEGATIVE NEGATIVE Urine RBC NONE /HPF Urine WBC NONE /HPF Urine Squamous Epithelial Cells RARE /HPF Urine Crystals NONE /LPF Urine Bacteria NEGATIVE /HPF Urine Casts NONE /LPF Urine Mucus NEGATIVE /LPF Urine Culture Indicated NO Urine Test NEGATIVE NEGATIVE Urine Opiates Screen NEGATIVE NEGATIVE Urine Oxycodone Screen POSITIVE H NEGATIVE Urine Methadone Screen NEGATIVE NEGATIVE Urine Propoxyphene Screen NEGATIVE NEGATIVE Urine Barbiturates Screen NEGATIVE NEGATIVE Ur Tricyclic Antidepressants Screen POSITIVE H NEGATIVE Urine Phencyclidine Screen NEGATIVE NEGATIVE Urine Amphetamines Screen NEGATIVE NEGATIVE Urine Methamphetamines Screen NEGATIVE NEGATIVE Urine Benzodiazepines Screen NEGATIVE NEGATIVE Urine Cocaine Screen NEGATIVE NEGATIVE Urine Cannabinoids Screen NEGATIVE NEGATIVE White Blood Count 13.4 H 4.3-11.0 10^3/uL Red Blood Count 5.64 H 3.80-5.11 10^6/uL Hemoglobin 15.6 11.5-16.0 g/dL Hematocrit 49 35-52 % Mean Corpuscular Volume 87 80-99 fL Mean Corpuscular Hemoglobin 28 25-34 pg Mean Corpuscular Hemoglobin Concent 32 32-36 g/dL Red Cell Distribution Width 14.9 H 10.0-14.5 % Platelet Count 264 130-400 10^3/uL Mean Platelet Volume 9.9 9.0-12.2 fL Immature Granulocyte % (Auto) 1 % Neutrophils (%) (Auto) 62 42-75 % Lymphocytes (%) (Auto) 29 12-44 % Monocytes (%) (Auto) 5 0-12 % Eosinophils (%) (Auto) 3 0-10 % Basophils (%) (Auto) 1 0-10 % Neutrophils # (Auto) 8.2 H 1.8-7.8 10^3/uL Lymphocytes # (Auto) 3.8 1.0-4.0 10^3/uL Monocytes # (Auto) 0.7 0.0-1.0 10^3/uL Eosinophils # (Auto) 0.5 H 0.0-0.3 10^3/uL Basophils # (Auto) 0.1 0.0-0.1 10^3/uL Immature Granulocyte # (Auto) 0.1 0.0-0.1 10^3/uL Sodium Level 140 135-145 MMOL/L Potassium Level 4.0 3.6-5.0 MMOL/L Chloride Level 105 98-107 MMOL/L Carbon Dioxide Level 20 L 21-32 MMOL/L Anion Gap 15 H 5-14 MMOL/L Blood Urea Nitrogen 12 7-18 MG/DL Creatinine 0.78 0.60-1.30 MG/DL Estimat Glomerular Filtration Rate > 60 BUN/Creatinine Ratio 15 Glucose Level 110 H 70-105 MG/DL Calcium Level 9.4 8.5-10.1 MG/DL Corrected Calcium 9.3 8.5-10.1 MG/DL Total Bilirubin 0.3 0.1-1.0 MG/DL Aspartate Amino Transf (AST/SGOT) 35 H 5-34 U/L Alanine Aminotransferase (ALT/SGPT) 86 H 0-55 U/L Alkaline Phosphatase 149 H 40-136 U/L Total Protein 7.7 6.4-8.2 GM/DL Albumin 4.1 3.2-4.5 GM/DL Lipase 16 8-78 U/L My Orders Orders - HUMBERTO MARQUIS APRN Cbc With Automated Diff (01/07/21 13:35) Comprehensive Metabolic Panel (01/07/21 13:35) Lipase (01/07/21 13:35) Ua Culture If Indicated (01/07/21 13:35) Drug Screen Stat (Urine) (01/07/21 13:35) Ed Iv/Invasive Line Start (01/07/21 13:35) Promethazine Injection (Phenergan Injec (01/07/21 14:15) Ns Iv 1000 Ml (Sodium Chloride 0.9%) (01/07/21 14:15) Ct Abdomen/Pelvis Wo (01/07/21 14:02) Hcg,Qualitative Urine (01/07/21 14:28) Medications Given in ED Current Medications Medications Dose Ordered Sig/Gomez Route Start Time Stop Time Status Last Admin Dose Admin Promethazine HCl 25 mg ONCE ONCE IVP 01/07/21 14:15 01/07/21 14:16 DC 01/07/21 14:30 25 MG Vital Signs/I&O 01/07/21 13:28 Pulse 81 Resp 20 B/P (MAP) 117/85 (96) Pulse Ox 98 O2 Delivery Room Air Blood Pressure Mean: 96 Departure Impression Primary Impression: Abdominal pain Disposition: HOME, SELF-CARE Condition: Stable Departure-Patient Inst. Decision time for Depature: 15:25 Referrals: [facility] (PCP/Family) Primary Care Physician Patient Instructions: Abdominal Pain, Adult ED Add. Discharge Instructions: All discharge instructions reviewed with patient and/or family. Voiced understanding. Scripts Promethazine HCl (Promethazine Tablet) 25 Mg Tablet 25 MG PO Q6H PRN for NAUSEA/VOMITING, #14 TAB Prov: HUMBERTO MARQUIS APRN 01/07/21 HUMBERTO MARQUIS APRN Jan 07, 2021 14:09
[2021-01-07 14:10] LABS: AMPHETAMINE SCREEN, URINE NEGATIVE (NEGATIVE); BARBITURATE SCREEN URINE NEGATIVE (NEGATIVE); BENZODIAZEPINES SCREEN URINE NEGATIVE (NEGATIVE); CANNABINOID SCREEN, URINE NEGATIVE (NEGATIVE); COCAINE SCREEN URINE NEGATIVE (NEGATIVE); METHADONE STAT NEGATIVE (NEGATIVE); METHAMPHETAMINE SCREEN URINE S NEGATIVE (NEGATIVE); OPIATE SCREEN URINE NEGATIVE (NEGATIVE); OXYCODONE STAT POSITIVE (NEGATIVE); PROPOXYPHENE STAT NEGATIVE (NEGATIVE); TRICYCLIC ANTIDEPRESSANTS SCRE POSITIVE (NEGATIVE)
[2021-01-07 14:11] LABS: BASOPHILS # (AUTO) 0.1 10^3/uL (0.0-0.1); BASOPHILS % (AUTO) 1 % (0-10); EOSINOPHILS # (AUTO) 0.5 10^3/uL (0.0-0.3); EOSINOPHILS % (AUTO) 3 % (0-10); HEMATOCRIT 49 % (35-52); HEMOGLOBIN 15.6 g/dL (11.5-16.0); LYMPHOCYTES # (AUTO) 3.8 10^3/uL (1.0-4.0); LYMPHOCYTES % (AUTO) 29 % (12-44); MEAN CORPUSCULAR HEMOGLOBIN 28 pg (25-34); MEAN CORPUSCULAR HGB CONC 32 g/dL (32-36); MEAN CORPUSCULAR VOLUME 87 fL (80-99); MEAN PLATELET VOLUME 9.9 fL (9.0-12.2); MONOCYTES # (AUTO) 0.7 10^3/uL (0.0-1.0); MONOCYTES % (AUTO) 5 % (0-12); NEUTROPHILS # (AUTO) 8.2 10^3/uL (1.8-7.8); NEUTROPHILS % (AUTO) 62 % (42-75); PLATELET COUNT 264 10^3/uL (130-400); WHITE BLOOD COUNT 13.4 10^3/uL (4.3-11.0)
[2021-01-07] MEDS ORDERED: NS IV 1000 ML 1,000 ML IV SCH (14:15)
[2021-01-07] MEDS ORDERED: PROMETHAZINE INJ 25 MG/ML (PHENERGAN) AMP IVP ONE (14:15)
[2021-01-07 14:24] LABS: BACTERIA,URINE NEGATIVE /HPF; SQUAMOUS EPITHELIAL CELL,UR RARE /HPF
[2021-01-07 14:26] LABS: ALBUMIN 4.1 GM/DL (3.2-4.5); CHLORIDE 105 MMOL/L (98-107); SODIUM 140 MMOL/L (135-145)
[2021-01-07 14:27] LABS: CALCIUM 9.4 MG/DL (8.5-10.1)
[2021-01-07 14:28] LABS: GLUCOSE 110 MG/DL (70-105); TOTAL PROTEIN 7.7 GM/DL (6.4-8.2)
[2021-01-07 14:29] LABS: CARBON DIOXIDE 20 MMOL/L (21-32)
[2021-01-07 14:30] LABS: BILIRUBIN,TOTAL 0.3 MG/DL (0.1-1.0)
[2021-01-07 14:31] LABS: ALKALINE PHOSPHATASE 149 U/L (40-136)
[2021-01-07 14:32] LABS: CREATININE SERUM 0.78 MG/DL (0.60-1.30); GFR ESTIMATED > 60
[2021-01-07 14:33] LABS: BUN/CREATININE RATIO 15
[2021-01-07 14:35] LABS: ALANINE AMINOTRANSFERASE 86 U/L (0-55); LIPASE 16 U/L (8-78)
--- NOTE | 2021-01-07 15:23 | Diagnostic Imaging Report ---
TECHNIQUE: Auto Exposure Controls were utilized during the CT exam to meet ALARA standards for radiation dose reduction. INDICATION: Pain in the right flank, epigastric pain, headache and nausea. Previous hysterectomy, cholecystectomy and appendectomy. Ovarian cervical and uterine cancer. COMPARISON STUDY: CT of the abdomen and pelvis from 09/05/2019. FINDINGS: The lung bases are clear. There is no hiatal hernia. Gallbladder is surgically absent. The liver, spleen, pancreas, adrenal glands and kidneys appear normal. The appendix and uterus are absent. Urinary bladder is normal. No ascites, free air or abnormal adenopathy is present. No hernia is present. Bowel loops demonstrate a few colonic diverticuli. No inflammatory changes are present. L5-S1 level demonstrates disc osteophyte complex with bilateral foraminal stenosis. Previous laminectomy is present. IMPRESSION: 1. There is no acute finding. 2. Diverticulosis is present without inflammation. 3. Degenerative and postoperative changes present in the spine. Dictated by: Dictated on workstation # [id number]
[2021-01-07] MEDS ORDERED: PROM25TA14 PO (15:26)
[2021-01-07 16:19] VITALS: BP 0/0
== END 2021-01-07 16:19 | disposition home or self-care (01) ==
LOC: EDUNIT# 12:58 → ER 13:03
DX: R10.9 Unspecified abdominal pain (principal); E66.01 Morbid (severe) obesity due to excess calories; J44.9 Chronic obstructive pulmonary disease, unspecified; I10 Essential (primary) hypertension; I25.2 Old myocardial infarction; F41.9 Anxiety disorder, unspecified; F32.9 Major depressive disorder, single episode, unspecified; F17.210 Nicotine dependence, cigarettes, uncomplicated; Z68.35 Body mass index [BMI] 35.0-35.9, adult; Z79.82 Long term (current) use of aspirin; Z79.899 Other long term (current) drug therapy
CPT/HCPCS: 36415; 74176; 80053; 80306; 81000; 83690; 84703; 85025

== ENCOUNTER 2022-04-29 18:10 | Emergency (ER) | payer MEDICARE, MEDICAID ==
[~2022-04-29] VITALS: Ht 167.7 cm; Wt 98.4 kg
[~2022-04-29 18:10] MED LIST changes: +CLIN-144 PO; -CLIN300C12 PO; +PROM25TA14 PO; -QUET50TA22 PO; +QUET50TA23 PO
[2022-04-29 18:46] VITALS: BP 116/85
--- NOTE | 2022-04-29 19:22 | Diagnostic Imaging Report ---
INDICATION: Right wrist pain. EXAMINATION: AP, oblique and lateral views of the right wrist were obtained. COMPARISON: Study of 06/28/2019. FINDINGS: There has been further worsening of radiocarpal degenerative change with chronic fracture through the waist of scaphoid bone. Sclerosis in the proximal pole remnant is again identified. Otherwise, no new fracture or malalignment is seen. 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 Dictated by: Dictated on workstation # [id number]
--- NOTE | 2022-04-29 20:25 | ED Upper Extremity ---
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 PT A&OX4. Source: patient Exam Limitations: no limitations History of Present Illness Date Seen by Provider: Apr 29, 2022 Time Seen by Provider: 18:57 Initial Comments Here with report of right wrist pain after tripping over an animal and catching herself on a dresser with her right wrist. She does have a previous scaphoid fracture of the right wrist. States that she had pain and it hurts both medial and lateral aspect on the radial and ulnar side. She did take 4 regular stre ngth acetaminophen for pain. Denies other injury or concerns. Onset: this afternoon Severity: moderate Pain/Injury Location: right wrist Method of Injury: fell Modifying Factors: Improves With Immobilization; Worse With Movement Allergies and Home Medications Allergies Coded Allergies: ketorolac (Unverified Allergy, Mild, 07/13/09) naproxen (Unverified Allergy, Mild, 07/13/09) amoxicillin (Verified Allergy, Unknown, 05/06/19) ciprofloxacin (Unverified Allergy, Unknown, 08/16/14) hydrocodone (Verified Allergy, Unknown, Itching, 05/07/19) N/V. morphine (Unverified Allergy, Unknown, 08/16/14) pregabalin (Verified Allergy, Unknown, Anaphylaxis, 05/06/19) tramadol (Unverified Allergy, Unknown, 08/16/14) Uncoded Allergies: BEES (Allergy, Unknown, 08/16/14) Patient Home Medication List Home Medication List Reviewed: Yes Albuterol Sulfate (Albuterol Sulfate) 2.5 Mg/3 Ml Vial.neb, (Reported) Entered as Reported by: ABDI GUILLEN on 09/05/19 0014 Amitriptyline HCl (Amitriptyline HCl) 50 Mg Tablet, 50 MG PO HS, (Reported) Entered as Reported by: BEATRIZ LOCKWOOD on 05/06/19 1622 Aspirin (Aspir 81) 81 Mg Tablet.dr, 81 MG PO DAILY, (Reported) Entered as Reported by: BEATRIZ LOCKWOOD on 05/06/19 1623 Atenolol (Atenolol) 100 Mg Tablet, 100 MG PO HS, (Reported) Entered as Reported by: BEATRIZ LOCKWOOD on 05/06/19 162 Buspirone HCl (Buspirone HCl) 10 Mg Tablet, 20 MG PO BID PRN for ANXIETY, (Reported) Entered as Reported by: BEATRIZ LOCKWOOD on 05/06/19 162 Cetirizine HCl (Zyrtec) 10 Mg Tablet, 10 MG PO DAILY, (Reported) Entered as Reported by: BEATRIZ LOCKWOOD on 05/06/19 162 Clindamycin HCl (Clindamycin HCl) 300 Mg Capsule, 300 MG PO QID Prescribed by: MARICRUZ GRAMAJO on 10/05/19 0300 Clonidine HCl (Clonidine HCl) 0.1 Mg Tablet, 0.1-0.2 MG PO BID PRN for ANXIETY, (Reported) Entered as Reported by: BEATRIZ LOCKWOOD on 05/06/19 162 Diclofenac Sodium/Misoprostol (Diclofenac-Misoprost 75-200 Tb) 1 Each Tab.ir.dr, (Reported) Entered as Reported by: ABDI GUILLEN on 09/05/19 0014 Doxycycline Hyclate (Doxycycline Hyclate) 100 Mg Tablet, 100 MG PO BID Prescribed by: OLENA FORMAN on 09/05/19 0329 Furosemide (Furosemide) 80 Mg Tablet, 80 MG PO DAILY, (Reported) Entered as Reported by: BEATRIZ LOCKWOOD on 05/06/19 162 Lidocaine HCl (Lidocaine HCl Viscous) 15 Ml Solution, 1-2 ML MM [id number] Prescribed by: MARICRUZ GRAMAJO on 10/05/19 0300 Methocarbamol (Robaxin-750) 750 Mg Tablet, 750 MG PO QID Prescribed by: MARICRUZ GRAMAJO on 08/08/19 2324 Mupirocin (Mupirocin) 22 Gm Oint...g., (Reported) Entered as Reported by: ABDI GUILLEN on 08/08/19 2100 Omeprazole (Omeprazole) 40 Mg Capsule.dr, 40 MG PO BID, (Reported) Entered as Reported by: BEATRIZ LOCKWOOD on 05/06/19 162 Potassium Chloride (Potassium Chloride) 10 Meq Tablet.er, 10 MEQ PO TID, (Reported) Entered as Reported by: BEATRIZ LOCKWOOD on 05/06/19 1622 Prazosin HCl (Prazosin HCl) 2 Mg Capsule, 2 MG PO HS, (Reported) Entered as Reported by: BEATRIZ LOCKWOOD on 05/06/19 1623 Promethazine HCl (Promethazine Tablet) 25 Mg Tablet, 25 MG PO Q6H PRN for NAUSEA/VOMITING Prescribed by: HUMBERTO MARQUIS on 01/07/21 1526 Quetiapine Fumarate (Quetiapine Fumarate) 50 Mg Tablet, 50 MG PO HS, (Reported) Entered as Reported by: BEATRIZ LOCKWOOD on 05/06/19 1622 Ranitidine HCl (Ranitidine HCl) 150 Mg Tablet, 150 MG PO BID, (Reported) Entered as Reported by: BEATRIZ LOCKWOOD on 05/06/19 1622 Tramadol HCl (Tramadol HCl) 50 Mg Tablet, (Reported) Entered as Reported by: ABDI GUILLEN on 08/08/19 2100 Review of Systems Constitutional: see HPI; No chills, No fever Respiratory: no symptoms reported Cardiovascular: no symptoms reported Musculoskeletal: joint pain, joint swelling Skin: No change in color, No lesions Psychiatric/Neurological: Numbness; Denies Weakness Past Klmmhyn-Oubjtk-Awmsfs Hx Patient Social History Tobacco Use?: Yes Tobacco type used: Cigarettes Smoking Status: Current Everyday Smoker Use of E-Cig and/or Vaping dev: No Substance use?: No Alcohol Use?: No Immunizations Up To Date Influenza Vaccine Up-to-Date: No; Not Current First/Initial COVID19 Vaccinat: 2020 Second COVID19 Vaccination Moreno: NONE Third COVID19 Vaccination Date: NONE COVID19 Vaccine Dean Of Education: NONE Seasonal Allergies Seasonal Allergies: Yes Past Medical History Surgery/Hospitalization HX: FREQUENT NECROTIC TISSUE REMOVAL, LUPUS, KIDNEY ET HEART FAILURE, HYSTERECTOMY, CHOLECYSTECTOMY, T&A, APPENDECTOMY, HYPERTENSION Surgeries: Yes (R ANKLE , 5th metatarsal rt foot, L3-S21 laminectomy) Adenoidectomy, Appendectomy, Ear Surgery, Gallbladder, Hysterectomy, Orthopedic, Tonsillectomy Respiratory: Yes Asthma, COPD, Tuberculosis Currently Using CPAP: No Currently Using BIPAP: No Cardiac: Yes (tachycardia-SVT, mitral stenosis, MVP, long QT,CHF) Atrial Fibrillation, Cardiomyopathy, Coronary Artery Disease, Heart Attack, Heart Murmur, High Cholesterol, Hypertension Neurological: Yes Headaches /Migraines 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 Genitourinary: Yes Renal Failure Gastrointestinal: Yes Ulcer Musculoskeletal: Yes ("BRITTLE BONES", DEGENERATIVE JOINT DZ, SPINAL STENOSIS, LUMBAR LAMINECTOMY) Degenerate Disk Disease, Arthritis, Scoliosis, Chronic Back Pain Endocrine: Yes (MORBID OBESITY) Lupus HEENT: Yes (POOR DENTITION/CARIES) Cancer: Yes Cervical, Ovarian, Uterine Did You Recieve Any Treatments: Yes What Type of Treatment Did You: Surgical Intervention Psychosocial: Yes Anxiety, PTSD, Depression Integumentary: Yes (R calf wound;R upper thigh;L upper chest-necrotic tissue- ABSCESS/CELLULITIS) Blood Disorders: No Adverse Reaction/Blood Tranf: No Family Medical History Reviewed Nursing Family Hx No Pertinent Family Hx Physical Exam Vital Signs Vital Signs - First Documented 04/29/22 18:46 Temp 36.7 Pulse 80 Resp 20 B/P (MAP) 116/85 (95) Pulse Ox 95 O2 Delivery Room Air Capillary Refill : Less Than 3 Seconds Height, Weight, BMI Height: 5'6" Weight: 200lbs. oz. 90.140991ut; 34.00 BMI Method:Stated General Appearance: WD/WN, no apparent distress Cardiovascular: regular rate, rhythm, no murmur Respiratory: lungs clear, normal breath sounds Wrist: Yes limited ROM, Yes soft tissue tenderness (Both ulnar and radial side with pain is not ulnar styloid and radiocarpal joint), Yes swelling (Greatest lateral on ulnar side) Neurologic/Psychiatric: no motor/sensory deficits, alert, normal mood/affect, oriented x 3 Skin: normal color, warm/dry Progress/Results/Core Measures Results/Orders My Orders Orders - OLENA FORMAN MD Wrist, Right, 3 Views Or More (04/29/22 19:04) Vital Signs/I&O 04/29/22 18:46 Temp 36.7 Pulse 80 Resp 20 B/P (MAP) 116/85 (95) Pulse Ox 95 O2 Delivery Room Air Blood Pressure Mean: 95 Progress Progress Note : Progress Note Seen and evaluated. X-ray right wrist ordered. Monitor patient. 1999: X-ray shows no acute fracture but does have chronic fractures to the scaphoid and arthritic changes. See report for details. Reviewed by me. We did give thumb spica splint. I will give her information for orthopedic follow-up. Discharged home with return precautions. Patient verbalized understanding instructions and agreement with plan. Diagnostic Imaging Diagonstic Imaging: Xray Plain Films/CT/US/NM/MRI: other Comments [facility] [place], [place] NAME: ROLAN DYKES [facility] REC#: [id number] PT STATUS: REG ER : 1985 PHYSICIAN: OLENA FORMAN MD ADMIT DATE: 04/29/22/ER Draft Date of Exam:04/29/22 WRIST, RIGHT, 3 VIEWS OR MORE INDICATION: Right wrist pain. EXAMINATION: AP, oblique and lateral views of the right wrist were obtained. COMPARISON: Study of 06/28/2019. FINDINGS: There has been further worsening of radiocarpal degenerative change with chronic fracture through the waist of scaphoid bone. Sclerosis in the proximal pole remnant is again identified. Otherwise, no new fracture or malalignment is seen. 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 Dictated on workstation # [id number] Dict: 04/29/221918 Trans: 04/29/221921 PJE [id number] Interpreted by: ROXY PETIT MD Electronically signed by: Departure Impression Primary Impression: Strain of right wrist Qualified Codes: S66.911A - Strain of unspecified muscle, fascia and tendon at wrist and hand level, right hand, initial encounter Additional Impression: Fracture of scaphoid bone with malunion Qualified Codes: S62.001P - Unspecified fracture of navicular [scaphoid] bone of right wrist, subsequent encounter for fracture with malunion Disposition: HOME, SELF-CARE Condition: Stable Departure-Patient Inst. Referrals: NO,LOCAL PHYSICIAN (PCP) Primary Care Physician JAVED BABB MD, MICHAEL P MD Patient Instructions: Wrist Sprain (DC) Add. Discharge Instructions: All discharge instructions reviewed with patient and/or family. Voiced understanding. You have an old fracture of the scaphoid that did not heal together. This is a chronic fracture and there is no new fracture currently. You also have arthritis of the wrist. Use wrist splint over the next week and then as needed. Follow-up with one of the orthopedist listed or of your choosing for recheck and further evaluation. Discussed with your doctor about referral as well. You may take Tylenol/acetaminophen 1000 mg every 6-8 hours as needed for pain. Do not exceed this dose. You may use ice packs to area of concern as needed 20 minutes/h for the next 1 to 2 days. Return for worse pain, swelling, weakness or other concerns as needed. Copy Copies To 1: GLENN WHITMAN TIMOTHY D MD Apr 29, 2022 20:25
== END 2022-04-29 20:33 | disposition home or self-care (01) ==
LOC: EDUNIT# 18:10 → ER 18:13
DX: S66.911A Strain of unspecified muscle, fascia and tendon at wrist and hand level, right hand, initial encounter (principal); S62.001P Unspecified fracture of navicular [scaphoid] bone of right wrist, subsequent encounter for fracture with malunion; E66.01 Morbid (severe) obesity due to excess calories; F17.210 Nicotine dependence, cigarettes, uncomplicated; Z68.34 Body mass index [BMI] 34.0-34.9, adult; Z28.311 Partially vaccinated for COVID-19; W01.0XXA Fall on same level from slipping, tripping and stumbling without subsequent striking against object, initial encounter
CPT/HCPCS: 73110